=== PATIENT | male | born 1940 | race Caucasian/White ===

== ENCOUNTER 2018-08-10 11:18 | Outpatient (CLI) | payer MEDICARE, SELFPAY ==
[2018-08-10 12:57] LABS: Hemoglobin A1C 6.5 % (4.5-6.2)
== END 2018-08-10 11:38 ==
PROVIDERS: PCP Family Medicine; Visit Provider Family Medicine
DX: R73.02 Impaired glucose tolerance (oral) (principal)
CPT/HCPCS: 36415; 83036

== ENCOUNTER 2018-08-20 00:23 | Outpatient (CLI) | payer MEDICARE, SELFPAY ==
--- NOTE | 2018-08-20 08:53 | DI.CT_ITS ---
SYMPTOMS/DIAGNOSIS: COLON CA, C18.2, EVALUATE FOR RECURRENCE OF METS CHEST, ABDOMEN AND PELVIS CT: CT examination of the chest, abdomen and pelvis was performed with a bolus infusion of 100 cc of Omnipaque 350 and ingestion of dilute barium. Note is made of a partially calcified 8 mm right upper lobe intrapulmonary nodule. This is unchanged in comparison with the previous CT examinations and is consistent with calcified granuloma. Lungs are otherwise clear except for minimal dependent atelectasis or scarring. Tracheobronchial tree appears intact. No evidence of pulmonary embolic disease or other major vascular abnormality. No hilar, mediastinal, axillary or supraclavicular adenopathy. No pleural-based mass. No pleural effusion. The liver is normal in appearance with no evidence of metastatic disease. Spleen appears normal, as does the pancreas. Gallbladder and bile ducts are CT normal. Adrenals appear normal bilaterally. Small bilateral presumed renal cysts are noted. No hydronephrosis or urinary tract calcification. Abdominal aortic aneurysm is noted, measuring about 3.5 cm in diameter. Right and left common iliac arteries each measure about 17 mm in diameter. No abdominal wall hernia is seen apart from a small fat-containing umbilical hernia. Previous right colon resection and anastomosis noted. No evidence of bowel obstruction. There is a new enlarged lymph node measuring about 17 mm in diameter at the level of the right renal vein located behind the vena cava. A couple of smaller nodes also appear to be present at this site. A 10 mm new retroaortic node is noted just above the bifurcation. No additional new adenopathy seen. No pelvic mass identified. Urinary bladder and prostate are unremarkable. No evidence of bony metastatic disease by CT criteria. CONCLUSION: 1. New indeterminate lymph nodes are noted in retrocaval and retroaortic locations, measuring 17 mm and 10 mm in diameter respectively, since previous CT of 11/03/2017. These are indeterminate for metastatic disease and appropriate follow-up imaging is recommended. 2. No other evidence of new remote metastatic disease. 3. Abdominal aortic aneurysm, 3.5 cm maximal diameter.
[2018-08-20] MEDS: Omnipaque 350 MG/ML 100 ML BTL IJ (11:47)
== END 2018-08-20 00:43 ==
PROVIDERS: PCP Family Medicine; Visit Provider Nurse Practitioner Adult Health
DX: C18.2 Malignant neoplasm of ascending colon (principal); R59.0 Localized enlarged lymph nodes; I71.4 Abdominal aortic aneurysm, without rupture
CPT/HCPCS: 74177; 71260; J3490

== ENCOUNTER 2018-08-20 01:17 | Outpatient (RCR) | payer MEDICARE, SELFPAY ==
[2018-08-20] MEDS: Heparin 500 UNITS/5 ML SYRINGE IV (08:40)
[2018-08-20] MEDS: Normal Saline Flush 10 ML SYR IVP (08:40)
[2018-08-20 08:53] LABS: Abs Immature Grans 0.01 k/cumm (0.0-0.09); Absolute Basophil Count 0.03 k/cumm (0.0-0.2); Absolute Eosinophil Count 0.11 k/cumm (0.0-0.7); Absolute Lymphocyte Count 1.92 k/cumm (1.2-3.4); Absolute Monocyte Count 0.67 k/cumm (0.11-0.7); Basophils % 0.4; Eosinophils % 1.5; HCT 39.1 % (40.0-50.0); Immature Grans % 0.1; Lymphocytes % 26.5; Mean Corp. HGB Concentration 33.2 g/dL (32.0-36.0); Mean Corpuscular Hemoglobin 30.2 pg (27.0-33.0); Mean Corpuscular Volume 90.9 fL (80-95); Mean Platelet Volume 9.5 fL (8.0-11.0); Monocytes % 9.3; Neutrophils % 62.2; Platelet Count 172 x1000/uL (130-400); RBC Distribution Width 14.1 % (11.8-14.1); White Blood Cell Count 7.24 k/cumm (4.4-10.8)
[2018-08-20 09:08] LABS: ALT 22 U/L (12-78); AST 65 U/L (15-37); Albumin 3.6 g/dL (3.4-5.0); Alkaline Phosphatase 58 U/L (46-116); Anion Gap 9.3 mmol/L (3-11); BUN 15 mg/dL (7-18); Bilirubin, Total 0.9 mg/dL (0.2-1.0); CO2 28.7 mmol/L (21.0-32.0); CREATININE 0.96 mg/dL (0.70-1.30); Calcium 8.5 mg/dL (8.5-10.1); Chloride 102 mmol/L (98-107); Glucose 116 mg/dL (70-100); Potassium 4.1 mmol/L (3.5-5.1); Sodium 140 mmol/L (136-145); Total Protein 7.5 g/dL (6.4-8.2)
[2018-08-23 10:10] LABS: CEA 0.6 ng/ml
== END 2018-08-25 23:59 | disposition home or self-care (01) ==
LOC: INF 01:17
PROVIDERS: PCP Family Medicine; Visit Provider Internal Medicine Hematology & Oncology
DX: Z85.038 Personal history of other malignant neoplasm of large intestine (principal); Z45.2 Encounter for adjustment and management of vascular access device
CPT/HCPCS: 36591; 74177; 80053; 71260; 82378; 85025; J3490

== ENCOUNTER 2018-09-14 00:37 | Emergency (ER) | payer MEDICARE, SELFPAY ==
[2018-09-14] VITALS (21 sets, daily range): BP systolic 146–165; BP diastolic 61–96; PULSE 57–91; RESP 14–24; TEMP 37.1; O2SAT 93–96
--- NOTE | 2018-09-14 01:06 | W.ED.GENAD ---
Discharge Plan Disposition Patient Disposition: [facility] Condition: Stable Discharge Details Chief Complaint: GenMedical Clinical Impression: Subarachnoid hemorrhage Primary Care Provider: Timothy Rodriguez ED Provider: Quique Busch Home Meds and New Rx's Prescriptions: No Action ranitidine HCl 150 mg capsule 150 mg PO BID Qty: 180 RF: 3 apixaban [Eliquis] 2.5 mg tablet 2.5 mg PO BID Qty: 180 RF: 3 meclizine 25 MG tablet 25 mg PO TID PRNQty: 90 RF: 1 cholecalciferol (vitamin D3) 1,000 UNITS tablet 1 tab PO DAILY Qty: 90 RF: 0 losartan 25 MG tablet 25 mg PO DAILY Qty: 90 RF: 3 simvastatin 20 MG tablet 20 mg PO HS Qty: 90 RF: 3 acetaminophen 500 MG tablet 500 mg PO BID RF: 0 alum-mag hydroxide-simeth [Antacid Regular Strength] 355 ML suspension 2 tsp PO PRN RF: 0 testosterone [AndroGel] 1.25 GM gel in packet 1.25 gm Transdermal DAILY Qty: 90 RF: 3 sertraline 50 MG tablet 50 mg PO DAILY Qty: 90 RF: 3 loratadine 10 mg Capsule 1 dose PO DAILY RF: 0 Medical Decision Making 78-year-old male with a history of colon cancer, status post hemicolectomy and chemotherapy. He has history of pulmonary embolism, paroxysmal atrial ablation. Also has a history of subdural hematoma with a intracranial bleed while on warfarin. He is currently anticoagulated with Eliquis. Presents with family and patient stating that on Thursday he developed transient left arm numbness and weakness, recurred yesterday, and recurred again this evening and associated with left leg weakness. This evening at home he also noted a temperature of 104.Both the weaknes and fever improved by the time of arrival. He arrives with a temperature of 37.1, blood pressure 156/90, 94% sat on room air. The presentation is concerning for intracranial hemorrhage/occult bleed. His report of fever to 104 at home raises the question of an occult bacteremia. Broad differential diagnosis considered and patient referred for blood culture, lactic acid, screening laboratories with troponin, type and screen, CT scan of the head, portable chest x-ray. Patient does have subarachnoid hemorrhage present in the right parietal sulci with surrounding edema. There is no midline shift. CXR unremarkable. Images uploaded to [facility] [place] and case discussed with Neurosurgery Dr Thurston, and ED Dr Love, and patient accepted in transfer. Will hold reversal of anticoagulation at this time. Medical Records Medical records reviewed: Yes I reviewed the patient's medical records. Lab Data Lab results reviewed: Yes I reviewed the patient's lab results. 09/14/18 01:38 Blood Blood Culture - Pending 09/14/18 01:10 Blood Blood Culture - Pending Laboratory Tests Range/Units 09/14/18 09/14/18 09/14/18 01:10 01:10 01:10 WBC (4.4-10.8) k/cumm 7.30 RBC (4.50-6.00) m/cumm 4.10 L Hgb (13.5-17.5) g/dL 12.5 L Hct (40.0-50.0) % 37.8 L MCV (80-95) fL 92.2 MCH (27.0-33.0) pg 30.5 MCHC (32.0-36.0) g/dL 33.1 RDW (11.8-14.1) % 13.9 Plt Count (130-400) x1000/uL 153 MPV (8.0-11.0) fL 9.7 Immature Gran % 0.1 Neutrophils % 65.8 Lymphocytes % 19.7 Monocytes % 11.0 Eosinophils % 3.0 Basophils % 0.4 Absolute Neutrophils (1.2-6.7) k/cumm 4.80 Absolute Lymphocytes (1.2-3.4) k/cumm 1.44 Absolute Monocytes (0.11-0.7) k/cumm 0.80 H Absolute Eosinophils (0.0-0.7) k/cumm 0.22 Absolute Basophils (0.0-0.2) k/cumm 0.03 Sodium (136-145) mmol/L 140 Potassium (3.5-5.1) mmol/L 3.9 Chloride (98-107) mmol/L 104 Carbon Dioxide (21.0-32.0) mmol/L 28.1 Anion Gap (3-11) mmol/L 7.9 BUN (7-18) mg/dL 18 Creatinine (0.70-1.30) mg/dL 1.03 Estimated GFR/1.73 m2 (mL/min/1.73m2) >= 60.00 Glucose (70-100) mg/dL 116 H Lactate (0.6-1.4) mmol/L 0.9 Calcium (8.5-10.1) mg/dL 8.6 Magnesium (1.8-2.4) mg/dL 1.7 L Total Bilirubin (0.2-1.0) mg/dL 0.4 AST (15-37) U/L 71 H ALT (12-78) U/L 22 Alkaline Phosphatase (46-116) U/L 56 Troponin I (0.00-0.06) ng/mL < 0.02 Total Protein (6.4-8.2) g/dL 6.9 Albumin (3.4-5.0) g/dL 3.4 ECG Data Attestation: I personally reviewed and interpreted this ECG (s) as follows: Prior ECG tracings: available for review Interpretation: Underlying sinus bradycardia with first-degree AV block, frequent PACs, bigeminy present, no ST segment HPI General Mode of arrival: ambulatory. Date/Time Provider Initiated Documentation: 09/14/18 00:50. Limitations to Documentation: no limitations. Information obtained by: patient. History of Present Illness 78 year old M presents to the emergency department with the chief complaint of Left arm and leg weakness intermittently over days, described as moderate, and is localized to the left, upper extremity and lower extremity. Patient started experiencing this day(s) and it has been intermittent. No relieving factors improve symptom(s), No exacerbating factors reported . Patient notes fever/chills. HPI Narrative: 78-year-old male presents from home with his and family. They report intermittent episodes of left arm weakness and numbness over 2 days time, associated with left leg weakness transiently and this evening, associated with a fever at home this evening. Patient states that after snowblowing on Thursday he developed approximately 2 hours of left arm weakness in which the arm felt . This improved and then recurred the next day. He denies a fall, headache, injury. This evening he came back to bed and told his he did not feel well and that he had noted recurrent left arm weakness and numbness with associated left leg weakness. At home when he was noted to have a fever of 104 with no intervention. Has not had cough, change to urine, vomiting, abdominal pain. Fever has now improved. He is an 78-year-old male who is anticoagulated. He has a history of paroxysmal atrial fibrillation, pulmonary embolism, subdural hematoma following bleed while on warfarin therapy that required craniectomy. Related Data Home Medications Medication Instructions Recorded Confirmed meclizine 25 mg PO TID PRN #90 tab-cap 03/10/17 09/14/18 cholecalciferol (vitamin D3) 1 tab PO DAILY #90 tab-cap 08/28/17 09/14/18 losartan 25 mg PO DAILY #90 tab 01/07/18 09/14/18 simvastatin 20 mg PO HS #90 tab-cap 01/18/18 09/14/18 acetaminophen 500 mg PO BID tab-cap 02/09/18 09/14/18 alum-mag hydroxide-simeth [Antacid 2 tsp PO PRN ml 02/09/18 09/14/18 Liquid] sertraline 50 mg PO DAILY #90 tab-cap 02/09/18 09/14/18 testosterone [Androgel] 1.25 gm TRANSDERMAL DAILY #90 gel 02/09/18 09/14/18 apixaban 2.5 mg tablet 2.5 mg PO BID #180 tab-cap 08/10/18 09/14/18 ranitidine 150 mg capsule 150 mg PO BID #180 cap 08/10/18 09/14/18 loratadine 1 dose PO DAILY 09/14/18 09/14/18 Previous Rx's Medication Instructions Recorded cholecalciferol (vitamin D3) 1 tab PO DAILY #90 tab-cap 08/28/17 losartan 25 mg PO DAILY #90 tab 01/07/18 simvastatin 20 mg PO HS #90 tab-cap 01/18/18 sertraline 50 mg PO DAILY #90 tab-cap 02/09/18 testosterone [Androgel] 1.25 gm TRANSDERMAL DAILY #90 gel 02/09/18 apixaban 2.5 mg tablet 2.5 mg PO BID #180 tab-cap 08/10/18 ranitidine 150 mg capsule 150 mg PO BID #180 cap 08/10/18 Allergies Allergy/AdvReac Type Severity Reaction Status Date / Time pantoprazole sodium Allergy Severe THROAT Unverified 09/14/18 00:40 [From Protonix] SWELLING/CHILLS General Stated Complaint: GenMedical ANY: 3 Review of Systems Review of Systems 8 systems reviewed and otherwise PFSH Family History Mother Personal history of malignant neoplasm Father Personal history of malignant neoplasm Heart disease Sister No problems noted. Brother No problems noted. Medical History BPH (benign prostatic hyperplasia) COPD (chronic obstructive pulmonary disease) GERD (gastroesophageal reflux disease) History of colon cancer Intention tremor PE (pulmonary thromboembolism) Paroxysmal atrial fibrillation Social History Smoking/Tobacco Use Status: Former Tobacco Use alcohol intake: current alcohol intake frequency: a few times a week substance use type: does not use seatbelt use: always Surgical History Colonoscopy - MAC (11/07/16) Colonoscopy - MAC (11/27/17) EGD - MAC (11/07/16) Fracture, Closed Treatment Hemicolectomy Kidney Stone Extraction Transurethral prostatectomy Exam Narrative Exam Narrative: GEN: awake, alert, oriented 3. Pleasant, well groomed, interactive. HEAD: Normocephalic, atraumatic ENT: Mucous membranes moist, oropharynx unremarkable, External ear exam unremarkable EYES: Irregular R pupil, EOMI NECK: Full ROM, no ELIZABETH, no menigismus CHEST/RESP: Nontender, clear to auscultation bilateral, no wheeze/rhonchi/rales CARDIOVASCULAR: RRR, no murmur, rub noel. 2+ Rad pulse bilateral ABDOMEN: Soft, nontender, no mass. +Bowel sounds EXT: Full ROM, no edema, no rash Neuro: Grossly normal neurologic exam, conversant, interactive. He is somewhat slow to respond at times and family states this is normal. Motor exam is 5 out of 5 in the upper extremity, 5 out of 5 in the right lower extremity, patient is able to lift the left lower extremity against gravity but not against resistance. Cranial nerves II through XII grossly intact. Left upper extremity finger to nose is somewhat wavering. Sensation intact throughout Psych: Speech fluent, thoughts congruent, affect normal Course Vital Signs Temperature 37.1 C 09/14/18 00:41 Pulse 57 L 09/14/18 00:41 Respiratory Rate 15 09/14/18 00:41 Blood Pressure 156/94 H 11/20/18 00:41 Pulse Oximetry 94 L 09/14/18 00:41 Temperature 37.1 C 09/14/18 00:41 Temperature Source Temporal Artery Scan 09/14/18 00:41 Pulse 57 L 09/14/18 00:41 Respiratory Rate 15 09/14/18 00:41 Respiratory Effort 09/14/18 00:41 Blood Pressure 156/94 H 09/14/18 00:41 Blood Pressure Position Sitting 09/14/18 00:41 Pulse Oximetry 94 L 09/14/18 00:41 Oxygen Delivery Method Room Air 09/14/18 00:41 Oxygen Flow Rate 0 09/14/18 00:41 Pain Level 0 09/14/18 00:41
[2018-09-14 01:30] LABS: Lactate-non-spesis 0.9 mmol/L (0.6-1.4)
--- NOTE | 2018-09-14 01:35 | DI.CT_ITS ---
SYMPTOM/DIAGNOSIS: INTERMITTENT LT ARM/LEG WEAKNESS/NUMB CRANIAL CT: Note is made of a subarachnoid hemorrhage in a right parietal sulci with minimal adjacent edema. There is moderate to severe chronic small vessel disease. The ventricles are unremarkable. There is no evidence of hydrocephalus. There is no evidence of a territorial infarct. The midline is preserved. Note is made of bilateral parietal craniotomies. Note is also made of minimal mucosal thickening in the maxillary sinuses. SUMMARY: A 16.5 x 6.2 cm right parietal subarachnoid hemorrhage is demonstrated. There is evidence of atrophy and small vessel disease. Please see the above discussion.
[2018-09-14 01:36] LABS: Abs Immature Grans 0.01 k/cumm (0.0-0.09); Absolute Basophil Count 0.03 k/cumm (0.0-0.2); Absolute Eosinophil Count 0.22 k/cumm (0.0-0.7); Absolute Lymphocyte Count 1.44 k/cumm (1.2-3.4); Basophils % 0.4; HCT 37.8 % (40.0-50.0); HGB 12.5 g/dL (13.5-17.5); Immature Grans % 0.1; Lymphocytes % 19.7; Mean Corp. HGB Concentration 33.1 g/dL (32.0-36.0); Mean Corpuscular Hemoglobin 30.5 pg (27.0-33.0); Mean Corpuscular Volume 92.2 fL (80-95); Mean Platelet Volume 9.7 fL (8.0-11.0); Neutrophils % 65.8; Platelet Count 153 x1000/uL (130-400); RBC Distribution Width 13.9 % (11.8-14.1)
--- NOTE | 2018-09-14 01:36 | DI.VRAD_ITS ---
EXAM: CT Head Without Intravenous Contrast EXAM DATE/TIME: 09/14/2018 1:06 AM CLINICAL HISTORY: 78 years old, male; Signs and symptoms; Weakness, extremity; Left; Prior surgery; Surgery date: 6+ months; Surgery type: Parietal craniectomies; Patient HX: L intermittent arm and leg weakness TECHNIQUE: Axial computed tomography images of the head/brain without intravenous contrast. All CT scans at this facility use at least one of these dose optimization techniques: automated exposure control; mA and/or kV adjustment per patient size (includes targeted exams where dose is matched to clinical indication); or iterative reconstruction. Coronal and sagittal reformatted images were created and reviewed. COMPARISON: CT HEAD WITHOUT CONTRAST 08/19/2017 9:28 AM FINDINGS: Subarachnoid hemorrhage in the right parietal sulci with minimal adjacent edema. There is moderate to severe chronic microvascular ischemic changes. No hydrocephalus or acute territorial infarction. No midline shift observed. Bilateral parietal craniotomies. Minimal mucosal thickening in the maxillary sinuses IMPRESSION: Subarachnoid hemorrhage in the right parietal sulci with minimal edema Dictated and Authenticated by: Zafar Batista MD. Ordering:TABATHA POWELL MD
[2018-09-14 01:46] LABS: ALT 22 U/L (12-78); AST 71 U/L (15-37); Albumin 3.4 g/dL (3.4-5.0); Alkaline Phosphatase 56 U/L (46-116); Anion Gap 7.9 mmol/L (3-11); BUN 18 mg/dL (7-18); Bilirubin, Total 0.4 mg/dL (0.2-1.0); CO2 28.1 mmol/L (21.0-32.0); CREATININE 1.03 mg/dL (0.70-1.30); Calcium 8.6 mg/dL (8.5-10.1); Chloride 104 mmol/L (98-107); Glucose 116 mg/dL (70-100); Magnesium 1.7 mg/dL (1.8-2.4); Potassium 3.9 mmol/L (3.5-5.1); Sodium 140 mmol/L (136-145); Total Protein 6.9 g/dL (6.4-8.2)
[2018-09-14] MEDS: Normal Saline 1,000 ML 125 ML IV (01:52)
[2018-09-14 01:54] LABS: Troponin I < 0.02 ng/mL (0.00-0.06)
--- NOTE | 2018-09-14 01:55 | DI.RAD_ITS ---
SYMPTOM/DIAGNOSIS: STROKE PORTABLE CHEST: Chronic pulmonary changes are noted. There is a questionable small left lower lobe granuloma, perhaps measuring 6 mm in maximal diameter. There is no pleural effusion or pneumothorax. There is moderate cardiac enlargement. There is tortuosity of the thoracic aorta and no plain image evidence of an aneurysm is seen. The bony structures are unremarkable. SUMMARY: No evidence of acute cardiopulmonary disease.
--- NOTE | 2018-09-14 01:59 | DI.VRAD_ITS ---
EXAM: XR Chest, 1 View EXAM DATE/TIME: 09/14/2018 1:46 AM CLINICAL HISTORY: 78 years old, male; Condition or disease; Other: Stroke; Prior surgery; Surgery date: 6+ months; Surgery type: Port TECHNIQUE: XR of the chest, 1 view. COMPARISON: CR CHEST 2 VIEWS PA,LAT 08/19/2017 9:25 AM FINDINGS: Right Port-A-Cath in the superior vena cava Lungs: Chronic interstitial prominence. Question calcified granuloma in the left lower lobe measuring 6 mm No consolidation. Pleural space: No pleural effusion. No pneumothorax. Heart/Mediastinum: Moderate cardiomegaly. Tortuous aorta. Bones/joints: Unremarkable. IMPRESSION: No acute findings. Dictated and Authenticated by: Zafar Batista MD. Ordering:TABATHA POWELL MD
[2018-09-14 02:03] LABS: Prothrombin Time 9.9 sec (9.3-10.8)
[2018-09-14] MEDS: MAGNESIUM SULFATE 1 GM/100 ML BAG IVPB (02:08)
[2018-09-14 03:04] LABS: Bilirubin Negative (Negative); Blood Trace-intact (Negative); Clarity Clear; Glucose Negative (Negative); Ketones Negative (Negative); Leukocyte Esterase Negative (Negative); Nitrite Negative (Negative); Urobilinogen 0.2 EU/dL (Up TO 0.2)
[2018-09-14 03:15] LABS: Bacteria Negative HPF (Negative); C & S Indicated? No; Casts Negative LPF (Negative); Crystals Few Amorphous HPF (Negative); Epithelial Cells Rare HPF (Negative); Mucus Negative (Negative); WBC 0-2 HPF (0-5)
--- NOTE | 2018-09-19 12:49 | NUR.NOTE ---
Faxed blood culture results to [facility] [place] [facility], .Nursing Note:
== END 2018-09-14 02:59 | disposition short-term general hospital (02) ==
PROVIDERS: Emergency Provider Emergency Medicine; PCP Family Medicine
DX: I60.9 Nontraumatic subarachnoid hemorrhage, unspecified (principal); R50.9 Fever, unspecified; I48.0 Paroxysmal atrial fibrillation; Z86.711 Personal history of pulmonary embolism; Z79.01 Long term (current) use of anticoagulants; J44.9 Chronic obstructive pulmonary disease, unspecified; Z87.891 Personal history of nicotine dependence
CPT/HCPCS: 36591; 80053; 86850; 86900; 86901; 87040; 93005; 96365; 99285; 70450; 71045; 81003; 81015; 83605; 83735; 84484; 85025; 85610; 93010; J3475

== ENCOUNTER 2018-10-15 10:38 | Emergency (ER) | payer MEDICARE, SELFPAY ==
[2018-10-15] VITALS (7 sets, daily range): BP systolic 130–154; BP diastolic 61–83; PULSE 43–77; RESP 16–20; TEMP 36.4; O2SAT 94–97
--- NOTE | 2018-10-15 10:42 | DI.RAD_ITS ---
SYMPTOM/DIAGNOSIS: WEAKNESS AP UPRIGHT CHEST: The lungs are clear. There is no pleural effusion. The heart lis not enlarged. The hilar structures, mediastinum and tracheal air column as demonstrated appear intact. A right subclavian catheter appears to end in the mid portion of the superior vena cava. SUMMARY: No evidence of acute cardiopulmonary disease.
[2018-10-15 10:59] LABS: Abs Immature Grans 0.03 k/cumm (0.0-0.09); Absolute Basophil Count 0.03 k/cumm (0.0-0.2); Absolute Eosinophil Count 0.22 k/cumm (0.0-0.7); Absolute Lymphocyte Count 1.82 k/cumm (1.2-3.4); Absolute Monocyte Count 0.73 k/cumm (0.11-0.7); Absolute Neutrophil Count 7.68 k/cumm (1.2-6.7); Basophils % 0.3; Eosinophils % 2.1; HCT 40.3 % (40.0-50.0); HGB 13.3 g/dL (13.5-17.5); Immature Grans % 0.3; Lymphocytes % 17.3; Mean Platelet Volume 9.4 fL (8.0-11.0); Monocytes % 6.9; Neutrophils % 73.1; Platelet Count 232 x1000/uL (130-400); RBC 4.43 m/cumm (4.50-6.00); RBC Distribution Width 12.5 % (11.8-14.1); White Blood Cell Count 10.51 k/cumm (4.4-10.8)
--- NOTE | 2018-10-15 11:01 | W.ED.GENAD ---
Discharge Plan Disposition Patient Disposition: HOME Condition: Stable Discharge Details Chief Complaint: CVA/TIA Clinical Impression: Paresthesia, Headache Primary Care Provider: Timothy Rodriguez ED Provider: Mihaela Bravo Home Meds and New Rx's Prescriptions: New levetiracetam [Keppra] 500 mg tablet 1,500 mg PO BID 30 Days Qty: 180 RF: 0 benzonatate [Tessalon Perles] 100 mg capsule 100 mg PO TID PRN (Reason: cough) Qty: 10 RF: 0 Continued Centrum Ultra Men's 8 mg iron- 200 mcg-600 mcg tablet 1 tab PO DAILY RF: 0 ranitidine HCl 150 mg capsule 150 mg PO BID Qty: 180 RF: 3 simvastatin 20 MG tablet 20 mg PO HS Qty: 90 RF: 3 acetaminophen 500 MG tablet 500 mg PO BID RF: 0 sertraline 50 MG tablet 50 mg PO DAILY Qty: 90 RF: 3 loratadine 10 mg Capsule 1 dose PO DAILY RF: 0 Discontinued levetiracetam 500 mg tablet 500 mg PO BID RF: 0 Discharge Instructions Instructions: Paresthesia (ED), General Headache (ED) Additional Instructions: Increase your Keppra from 1000 mg twice daily to 1500 mg twice daily. You were given an additional prescription for this. Take the Tessalon Perles as needed and directed for your cough. You will receive a call from the primary care doctor's office for a follow-up appointment for next week. Return immediately to the emergency department any worsening or new concerning symptoms. Discharge Data Discharge Date/Time-TO BE ENTERED AT DEPARTURE: 10/15/18 15:36 Discharge Physician: Mihaela Bravo Medical Decision Making 78yo M w/ a h/o SAH and craniotomy 2015, afib not on anticoagulation, colon cancer s/p hemicolectomy, hypertension, hyperlipidemia who presents for bilateral upper and lower extremity tingling and frontal headache that started 90 minutes ago. Patient complained of frontal headache on my exam. No focal deficits. Patient sent down to CT for stat CT head 1135 -- CT head negative. Patient states his headache is now resolved. Patient also denies any tingling in his extremities. Moving all extremities spontaneously and no focal deficits. Concern for TIA. MRI called to see if we can obtain an MRI brain today. Heart rate also noted to be occasionally in the 30s. Pt remained asymptomatic during these episodes. Daughter states his home health/PCP office stopped his losartan last week for this which would not be the cause. Will place pacer pads. Labs reviewed and unremarkable. Urinalysis negative. 1245 -- d/w hospitalist - notified of pt and plan for admission for TIA r/o CVA pending MRI brain. 1415 -- MRI/MRA brain negative for acute findings. 1425 -- Discussed with hospitalist - he had reviewed prior imaging at [facility] within the past month including echo and CT angiography and these were unrevealing. He also discussed with patient's neurologist Dr. Griffiths who had stated that patient had had similar sensory deficits during his admission 1 month ago and it was thought that residual blood from his previous SAH may be causing his sensory symptoms as he had similar symptoms while at [facility] w/o new neurologic injury found. Please see Dr. Frances's note for further discussion of this. Due to his recent workup and resolution of symptoms with negative MRI/MRA brain today, Dr. Frances does not recommend admission at this time. Per Dr. Frances, Dr. Griffiths recommends increasing his keppra to 1500mg bid. Pt has also had chronic cough for a couple weeks. He has no fever, normal wbc and normal cxr, so I do not see a need for antibiotics but will give script for Doug Wadsworth. This plan was discussed at length with patient and family and they are agreeable and feel good with taking patient home. 1505 -- d/w pcp Dr. Rodriguez -notified him of plan today and for recommend follow-up within the next week. He will plan for patient be evaluated by the end of next week. Family and pt instructed to return here immediately with any concerns. Dr. Rodriguez was given daughter Bernie's home number to call instead of per request due to being hard of hearing. Medical Records Medical records reviewed: Yes I reviewed the patient's medical records. Imaging Data Radiologic Study: Radiologist's impression: AP UPRIGHT CHEST: The lungs are clear. There is no pleural effusion. The heart lis not enlarged. The hilar structures, mediastinum and tracheal air column as demonstrated appear intact. A right subclavian catheter appears to end in the mid portion of the superior vena cava. SUMMARY: No evidence of acute cardiopulmonary disease. Radiologic Study #2: Attestation: I personally reviewed and interpreted this imaging study as follows: Radiologist's impression: CRANIAL CT: There is no evidence of an intra or extra axial hemorrhage. There is generalized cerebral atrophy, evidence of small vessel disease and old bilateral basal ganglia, lacunar infarcts identified. Note is made of a bilateral parietal craniotomies. There is nothing to suggest a superimposed acute skull fracture. There is moderate mucoperiosteal thickening noted in the maxillary antra with increased prominence when compared with the prior examination of 09/14/2018. SUMMARY: When compared with the prior study of 09/14/2018 there is again noted no evidence of an acute intracerebral abnormality. There is evidence of atrophy, small vessel disease and old lacunes involving the basal ganglia are demonstrated. Note is also made of bilateral craniotomy defects. Chronic maxillary and ethmoid sinus changes are identified. There is no evidence of an air fluid level or acute change. Radiologic Study #3: Radiologist's impression: MRI OF THE BRAIN: Comparison is made with the head CT dated September,. T2 sagittal, T1, T2, FLAIR, diffusion and gradient-echo axial sequences were performed. The exam is quite limited by patient motion. There are bilateral craniotomy defects. There are severe white matter changes, which appear stable when compared with previous exam from 2017. No acute infarct, hemorrhage or mass is seen. The ventricles are unchanged in size. IMPRESSION: Limited exam due to motion. No acute abnormality. MRA OF THE [place]: A 3D [id number] study was performed. The exam is quite limited by patient motion. The [place] vasculature appears patent. There is no evidence of occlusion or significant stenosis. IMPRESSION: Limited exam due to motion. No acute abnormality is identified. Lab Data Lab results reviewed: Yes I reviewed the patient's lab results. Laboratory Tests Range/Units 10/15/18 10/15/18 10/15/18 10:45 10:45 10:45 WBC (4.4-10.8) k/cumm 10.51 RBC (4.50-6.00) m/cumm 4.43 L Hgb (13.5-17.5) g/dL 13.3 L Hct (40.0-50.0) % 40.3 MCV (80-95) fL 91.0 MCH (27.0-33.0) pg 30.0 MCHC (32.0-36.0) g/dL 33.0 RDW (11.8-14.1) % 12.5 Plt Count (130-400) x1000/uL 232 MPV (8.0-11.0) fL 9.4 Immature Gran % 0.3 Neutrophils % 73.1 Lymphocytes % 17.3 Monocytes % 6.9 Eosinophils % 2.1 Basophils % 0.3 Absolute Neutrophils (1.2-6.7) k/cumm 7.68 H Absolute Lymphocytes (1.2-3.4) k/cumm 1.82 Absolute Monocytes (0.11-0.7) k/cumm 0.73 H Absolute Eosinophils (0.0-0.7) k/cumm 0.22 Absolute Basophils (0.0-0.2) k/cumm 0.03 PT (9.3-11.0) sec 9.3 INR (1.0-3.5) 0.9 L APTT (21.0-31.4) sec 21.4 Sodium (136-145) mmol/L 137 Potassium (3.5-5.1) mmol/L 4.0 Chloride (98-107) mmol/L 98 Carbon Dioxide (21.0-32.0) mmol/L 30.5 Anion Gap (3-11) mmol/L 8.5 BUN (7-18) mg/dL 16 Creatinine (0.70-1.30) mg/dL 1.02 Estimated GFR/1.73 m2 (mL/min/1.73m2) >= 60.00 Glucose (70-100) mg/dL 110 H Calcium (8.5-10.1) mg/dL 9.2 Magnesium (1.8-2.4) mg/dL 1.9 Total Bilirubin (0.2-1.0) mg/dL 0.4 AST (15-37) U/L 89 H ALT (12-78) U/L 26 Alkaline Phosphatase (46-116) U/L 82 Troponin I (0.00-0.06) ng/mL < 0.02 Total Protein (6.4-8.2) g/dL 8.1 Albumin (3.4-5.0) g/dL 3.7 Urine Color (Yellow) Urine Clarity Urine pH (5-8) Ur Specific [place] (1.005-1.025) Urine Protein (Negative) mg/dL Urine Ketones (Negative) mg/dL Urine Blood (Negative) Urine Nitrite (Negative) Urine Bilirubin (Negative) Urine Urobilinogen (Up TO 0.2) EU/dL Ur Leukocyte Esterase (Negative) Urine RBC (0-2) Urine WBC (0-5) HPF Ur Epithelial Cells (Negative) HPF Urine Crystals (Negative) HPF Urine Bacteria (Negative) HPF Urine Casts (Negative) LPF Urine Mucus (Negative) Ur Culture Indicated? Urine Glucose (Negative) mg/dL Range/Units 10/15/18 11:57 WBC (4.4-10.8) k/cumm RBC (4.50-6.00) m/cumm Hgb (13.5-17.5) g/dL Hct (40.0-50.0) % MCV (80-95) fL MCH (27.0-33.0) pg MCHC (32.0-36.0) g/dL RDW (11.8-14.1) % Plt Count (130-400) x1000/uL MPV (8.0-11.0) fL Immature Gran % Neutrophils % Lymphocytes % Monocytes % Eosinophils % Basophils % Absolute Neutrophils (1.2-6.7) k/cumm Absolute Lymphocytes (1.2-3.4) k/cumm Absolute Monocytes (0.11-0.7) k/cumm Absolute Eosinophils (0.0-0.7) k/cumm Absolute Basophils (0.0-0.2) k/cumm PT (9.3-11.0) sec INR (1.0-3.5) APTT (21.0-31.4) sec Sodium (136-145) mmol/L Potassium (3.5-5.1) mmol/L Chloride (98-107) mmol/L Carbon Dioxide (21.0-32.0) mmol/L Anion Gap (3-11) mmol/L BUN (7-18) mg/dL Creatinine (0.70-1.30) mg/dL Estimated GFR/1.73 m2 (mL/min/1.73m2) Glucose (70-100) mg/dL Calcium (8.5-10.1) mg/dL Magnesium (1.8-2.4) mg/dL Total Bilirubin (0.2-1.0) mg/dL AST (15-37) U/L ALT (12-78) U/L Alkaline Phosphatase (46-116) U/L Troponin I (0.00-0.06) ng/mL Total Protein (6.4-8.2) g/dL Albumin (3.4-5.0) g/dL Urine Color (Yellow) Yellow Urine Clarity Clear Urine pH (5-8) 7.0 Ur Specific [place] (1.005-1.025) 1.015 Urine Protein (Negative) mg/dL Negative Urine Ketones (Negative) mg/dL Negative Urine Blood (Negative) Trace-intact H Urine Nitrite (Negative) Negative Urine Bilirubin (Negative) Negative Urine Urobilinogen (Up TO 0.2) EU/dL 0.2 Ur Leukocyte Esterase (Negative) Negative Urine RBC (0-2) 5-10 H Urine WBC (0-5) HPF 0-2 Ur Epithelial Cells (Negative) HPF Rare Urine Crystals (Negative) HPF Negative Urine Bacteria (Negative) HPF Negative Urine Casts (Negative) LPF Negative Urine Mucus (Negative) Negative Ur Culture Indicated? No Urine Glucose (Negative) mg/dL Negative Patient ECG Data Attestation: I personally reviewed and interpreted this ECG (s) as follows: Interpretation: 1048 -- Rate of 70, sinus, occasional PVCs, incomplete right bundle branch block and left anterior fascicular block which is seen in previous. No acute ST elevation or depression. QTc 453. QRS 123. HPI General Mode of arrival: EMS. Date/Time Provider Initiated Documentation: 10/15/18 10:42. Limitations to Documentation: altered mental status. Information obtained by: patient and family. HPI Narrative: Patient is an 78-year-old male with a history of subarachnoid hemorrhage x2, most recently 1 month ago and a history of craniotomy in 2015, atrial fibrillation not on anticoagulation, and colon cancer who presents to the ED with a complaint of extremity tingling and headache since this morning. Patient and family state that patient was sitting in the kitchen when he developed left arm and left leg tingling and a sensation of heaviness in his left arm that started approximately 90 minutes ago. Patient states shortly after he then developed tingling in his right arm and right leg. Approximately 30 minutes after this, patient developed a frontal headache. He denies any blurry vision, nausea, vomiting, dizziness, chest pain, shortness of breath or extremity weakness. Patient has a history of subarachnoid hemorrhage just before 1 month ago in which she was seen initially in this ED and transferred to [facility] and then to rehab. Family states patient has been doing well up until symptoms this morning. They state at baseline he occasionally uses a walker for ambulation. They state at baseline he has some level of cognitive impairment/mild dementia, but he seemed more confused this morning with expressive/receptive aphasia. They deny any slurred speech or facial droop. Patient also developed a recent cough at the [facility] rehab before he was discharged this month and has not been sleeping well due to a cough at night. Patient had been taking Eliquis for his Afib prior to his subarachnoid hemorrhage 1 month ago but this was stopped. Related Data Home Medications Medication Instructions Recorded Confirmed simvastatin 20 mg PO HS #90 tab-cap 18 10/15/18 acetaminophen 500 mg PO BID tab-cap 02/09/18 10/15/18 sertraline 50 mg PO DAILY #90 tab-cap 02/09/18 10/15/18 ranitidine 150 mg capsule 150 mg PO BID #180 cap 08/10/18 10/15/18 loratadine 1 dose PO DAILY 09/14/18 10/15/18 multivit,Ca,min-iron 8 mg-folic 1 tab PO DAILY tab 10/12/18 10/15/18 acid 200 mcg-lycopene 600 mcg tablet benzonatate [Tessalon Perles] 100 mg PO TID PRN #10 cap 10/15/18 levetiracetam [Keppra] 1,500 mg PO BID 30 Days #180 tab 10/15/18 Previous Rx's Medication Instructions Recorded simvastatin 20 mg PO HS #90 tab-cap 01/18/18 sertraline 50 mg PO DAILY #90 tab-cap 02/09/18 ranitidine 150 mg capsule 150 mg PO BID #180 cap 08/10/18 benzonatate [Tessalon Perles] 100 mg PO TID PRN #10 cap 10/15/18 levetiracetam [Keppra] 1,500 mg PO BID 30 Days #180 tab 10/15/18 Allergies Allergy/AdvReac Type Severity Reaction Status Date / Time pantoprazole sodium Allergy Severe THROAT Unverified 10/15/18 11:22 [From Protonix] SWELLING/CHILLS General AYN: 3 Review of Systems Review of Systems All systems reviewed & are unremarkable except as noted in HPI and below Constitutional Reports as per HPI, Denies chills, Denies fever(s), Reports headache(s) and Denies weakness Eyes Denies blurry vision ENT Denies dizziness, Reports headache(s), Denies sore throat and Denies throat swelling Cardiovascular Denies chest pain and Denies dyspnea Respiratory Denies dyspnea Gastrointestinal Denies abdominal pain, Denies diarrhea and Denies vomiting Genitourinary Denies hematuria and Denies dysuria Musculoskeletal Denies back pain, Denies numbness and Reports tingling Integumentary/Breasts Denies lesions and Denies rash Neurologic Denies dizziness, Reports headache(s), Denies numbness, Reports tingling and Denies weakness Allergic/Immunologic Denies throat swelling [facility] Medical History BPH (benign prostatic hyperplasia) COPD (chronic obstructive pulmonary disease) GERD (gastroesophageal reflux disease) History of colon cancer Intention tremor PE (pulmonary thromboembolism) Paroxysmal atrial fibrillation Surgical History Colonoscopy - MAC (11/07/16) Colonoscopy - MAC (11/27/17) EGD - MAC (11/07/16) Fracture, Closed Treatment Hemicolectomy Kidney Stone Extraction Transurethral prostatectomy Family History Mother Personal history of malignant neoplasm Father Personal history of malignant neoplasm Heart disease Sister No problems noted. Brother No problems noted. Social History Smoking/Tobacco Use Status: Former Tobacco Use alcohol intake: current alcohol intake frequency: a few times a week substance use type: does not use seatbelt use: always Exam Const General: cooperative and healthy appearing Orientation: alert and awake HENMT Head: normal to inspection Ears: hearing grossly normal bilaterally and external ears normal General nose exam: external nose normal Face and sinus: normal facial exam Mouth: oral mucosae normal Eyes General: appearance normal, both eyes and all related structures Eyelids: eyelids normal Pupils: pupil size on the right (chronic due to previous metal in eye injury) 3 and on the left 2 EOM: EOM intact bilaterally Neck Neck: normal visual inspection Lymphatic: no lymphadenopathy noted Chest Chest: normal inspection of the chest Resp Effort & Inspection: normal respiratory effort and able to speak in complete sentences Auscultation: clear to auscultation bilaterally Cardio Rate: regular rate Rhythm: regular rhythm GI Inspection: normal to inspection Palpation: soft, not firm, no guarding, no hepatosplenomegaly, no masses and nontender Auscultation: normal bowel sounds Skin General skin exam: no rashes or lesions noted Neuro General: alert, awake, oriented (not time, which can e his baseline due to chronic cognitive impairment) Patient Orientation: Person and Place, moves all extremities, no focal motor deficits and other Cognition: normal cognition Speech: speech normal Motor: muscle tone normal throughout, strength 5/5 throughout and no pronator drift Sensory Exam: no sensory deficits noted Extrem General: normal to inspection, full ROM, normal capillary refill and no edema Psych Appearance: grossly normal Mental Status: mental status grossly normal Speech and Movement: speech and movement normal Affect: normal affect Thought Process: normal Course Vital Signs Respiratory Rate 17 10/15/18 10:39 Pulse 43 L 10/15/18 10:41 Pulse 73 10/15/18 10:41 Respiratory Rate 20 10/15/18 10:41 Blood Pressure 154/83 H 10/15/18 10:41 Blood Pressure Mean 102 10/15/18 10:41 Pulse Oximetry 95 10/15/18 10:41
[2018-10-15 11:17] LABS: ALT 26 U/L (12-78); AST 89 U/L (15-37); Albumin 3.7 g/dL (3.4-5.0); Alkaline Phosphatase 82 U/L (46-116); Anion Gap 8.5 mmol/L (3-11); Bilirubin, Total 0.4 mg/dL (0.2-1.0); CO2 30.5 mmol/L (21.0-32.0); CREATININE 1.02 mg/dL (0.70-1.30); Calcium 9.2 mg/dL (8.5-10.1); Chloride 98 mmol/L (98-107); Glucose 110 mg/dL (70-100); Magnesium 1.9 mg/dL (1.8-2.4); Sodium 137 mmol/L (136-145); Total Protein 8.1 g/dL (6.4-8.2)
[2018-10-15 11:18] LABS: Troponin I < 0.02 ng/mL (0.00-0.06)
[2018-10-15 11:25] LABS: INR 0.9 (1.0-3.5); PTT Activated 21.4 sec (21.0-31.4); Prothrombin Time 9.3 sec (9.3-11.0)
[2018-10-15 11:29] LABS: BUN 16 mg/dL (7-18)
[2018-10-15 12:02] LABS: Bilirubin Negative (Negative); Blood Trace-intact (Negative); Clarity Clear; Glucose Negative (Negative); Ketones Negative (Negative); Leukocyte Esterase Negative (Negative); Nitrite Negative (Negative); Specific Gravity 1.015 (1.005-1.025); Urobilinogen 0.2 EU/dL (Up TO 0.2)
[2018-10-15 12:13] LABS: Bacteria Negative HPF (Negative); C & S Indicated? No; Casts Negative LPF (Negative); Crystals Negative HPF (Negative); Epithelial Cells Rare HPF (Negative); Mucus Negative (Negative); WBC 0-2 HPF (0-5)
[2018-10-15] MEDS: LORazepam 2 MG/ML VIAL 1 MG IVP (12:28)
--- NOTE | 2018-10-15 12:31 | NUR.NOTE ---
patient medicated per MD order Nursing Note:
--- NOTE | 2018-10-15 13:29 | NUR.NOTE ---
patient to MRI 1245pmNursing Note:
--- NOTE | 2018-10-15 13:45 | DI.MRI_ITS ---
SYMPTOMS/DIAGNOSIS: POSSIBLE TIA, BILATERAL TINGLING, HEADACHE, H/O SUBACUTE HEMORRHAGE, ANEURYSM, ? CVA MRI OF THE BRAIN: Comparison is made with the head CT dated September,. T2 sagittal, T1, T2, FLAIR, diffusion and gradient-echo axial sequences were performed. The exam is quite limited by patient motion. There are bilateral craniotomy defects. There are severe white matter changes, which appear stable when compared with previous exam from 2017. No acute infarct, hemorrhage or mass is seen. The ventricles are unchanged in size. IMPRESSION: Limited exam due to motion. No acute abnormality. MRA OF [place]: A 3D [id number] study was performed. The exam is quite limited by patient motion. The [place] vasculature appears patent. There is no evidence of occlusion or significant stenosis. IMPRESSION: Limited exam due to motion. No acute abnormality is identified.
--- NOTE | 2018-10-15 13:54 | NUR.NOTE ---
patient returned from MRI, neuro signs wnl Nursing Note:
--- NOTE | 2018-10-15 14:07 | W.MEDCONSULT ---
Date of service: 10/15/18 Time of Service: 14:08 Assessment and Plan (1) Paresthesias: Current visit: Yes Status: Acute Paresthesias left hand and arm and right hand, the latter somewhat different compared to his presenting symptoms with his subarachnoid hemorrhage last month. I spoke with Dr. Griffiths, attending neurologist who saw him during his [facility] hospitalization. Suspicion is that he has amyloid angiopathy as the cause of the subarachnoid hemorrhage and there may be residual blood causing irritation to the adjacent neurologic structures resulting in these transient sensory symptoms. He had these events during his hospitalization at [facility] and no new bleed or neurologic events were found. It is not clear if these represent seizures but management has been with the use of Keppra. Dr. Griffiths recommends increasing his Keppra dose by 50% from the current 1000 mg twice daily to 1500 mg twice daily. He has had cerebrovascular and cardiac workup for other etiologies for embolic stroke during his hospitalization at [facility] and these have been unrevealing. Given that he has had a workup recently and his symptoms have completely resolved, I do not think he needs to stay overnight for observation. Recommend we increase his Keppra dose as recommended by Dr. Griffiths with close outpatient follow-up with Dr. Rodriguez. (2) History of subarachnoid hemorrhage: Current visit: Yes Status: Acute No new bleeds on his neuroimaging today. (3) Paroxysmal atrial fibrillation: Current visit: Yes Status: Chronic Currently sinus rhythm with PACs. The decision as to when, if ever, to restart anticoagulation is deferred to Dr. Rodriguez and neurology. (4) Cough: Current visit: Yes Status: Acute I agree with the recent evaluation by Dr. Rodriguez that this is probably viral and I expect it will go away on its own. I see no indication for antibiotics. Symptom treatment with benzonatate can be tried. History of Present Illness Narrative: 78-year-old man with a history of stage III colon cancer, paroxysmal atrial fibrillation not anticoagulated because of recent small nontraumatic subarachnoid hemorrhage brought into the emergency room by family members because of complaints of a mild headache, initially left-sided and then right hand numbness/paresthesia feelings. The left arm symptoms were similar to the symptoms he had when he presented with his subarachnoid hemorrhage less motor weakness and less any involvement of his left leg which was part of the initial symptom complex. Subarachnoid hemorrhage was in August, hospitalized at [facility], not felt to require surgery. He was placed on Keppra prophylactically. He did not have any observed seizures but did have recurrent bouts of sensory symptoms in the same distribution, felt to be related to blood in the area, possible seizure versus irritation. It was felt that he may have amyloid angiopathy as the cause of his bleed. Anticoagulation with Eliquis was discontinued during that hospitalization. During his hospitalization he had CT angiography which did not show any flow-limiting lesions. He had an echocardiogram which did not reveal any embolic source but he did have significant atrial enlargement and there was a beginning of a conversation about occlusion of the left atrial appendage. He is also found to have a right below the knee DVT. He had a follow-up duplex scan October 04 showing no progression above the knee, chronic appearance to the clot. He was discharged from [facility] to the [facility] and has been home for about a week. There have been no falls. His appetite has been excellent. 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 He has some mild memory impairment, none of these have changed according to family members. He has had a cough interrupting his sleep since he got home from the [facility]. No reported fever and no significant sputum production. No complaints of chest pain. No reports of hemoptysis. Since arrival in the emergency room, his sensory complaints have completely resolved. Consults Consult date: 10/15/18 Review of Systems Review of Systems Complaint this morning now resolved. Denies vision changes. No reports of any trouble swallowing or choking episodes. Loose but nonproductive cough. No chest pains. No vomiting. No change in bowel or bladder function. Denies any weakness in his arms or legs. No recent falls. No large bruises. [facility] Medical History BPH (benign prostatic hyperplasia) COPD (chronic obstructive pulmonary disease) GERD (gastroesophageal reflux disease) History of colon cancer Intention tremor PE (pulmonary thromboembolism) Paroxysmal atrial fibrillation Surgical History Colonoscopy - MAC (11/07/16) Colonoscopy - MAC (11/27/17) EGD - MAC (11/07/16) Fracture, Closed Treatment Hemicolectomy Kidney Stone Extraction Transurethral prostatectomy Family History Mother Personal history of malignant neoplasm Father Personal history of malignant neoplasm Heart disease Sister No problems noted. Brother No problems noted. Social History Smoking/Tobacco Use Status: Former Tobacco Use alcohol intake: current alcohol intake frequency: a few times a week substance use type: does not use seatbelt use: always Exam Narrative Exam Narrative: Man appearing his chronologic age awake on stretcher no distress. Responses to questions are a bit delayed and mildly dysarthric. Slight confusion or language processing problem (for example when asked if he was having trouble sleeping his response was there were others in the room, interpreted as trouble sleeping when he was at the [facility] sharing a room with someone else). Pupils are 3 mm equal, extraocular movements spontaneously intact. Tongue midline. No JVD. Lungs are clear throughout no crackles wheeze or rub anywhere. Heart rhythm mostly regular, occasional ectopic beats, monitor shows PACs heart rate in the 70s. No heart murmur S3 or S4 heard. Abdomen obese soft normal bowel sounds no tenderness in any quadrant. Feet are warm no pitting edema. He has antigravity power present in all extremities. No pronator drift. Cmm Operator strength a little stronger on the right than left (right-handed) cold touch sensation intact in all extremities. I do not elicit DTRs anywhere. He has no rest tremor. He sits up unassisted. Results Last Vital Signs Temp 36.4 C L 10/15/18 11:12 Pulse 68 10/15/18 13:54 Resp 18 10/15/18 13:54 BP 137/67 10/15/18 13:54 Pulse Ox 94 L 10/15/18 13:54 Labs : 10/15/18 10:45 10/15/18 10:45 Laboratory Results - last 24 hr 10/15/18 10/15/18 10/15/18 10:45 10:45 10:45 WBC 10.51 RBC 4.43 L Hgb 13.3 L Hct 40.3 MCV 91.0 MCH 30.0 MCHC 33.0 RDW 12.5 Plt Count 232 MPV 9.4 Immature Gran % 0.3 Neutrophils % 73.1 Lymphocytes % 17.3 Monocytes % 6.9 Eosinophils % 2.1 Basophils % 0.3 Absolute Neutrophils 7.68 H Absolute Lymphocytes 1.82 Absolute Monocytes 0.73 H Absolute Eosinophils 0.22 Absolute Basophils 0.03 PT 9.3 INR 0.9 L APTT 21.4 Sodium 137 Potassium 4.0 Chloride 98 Carbon Dioxide 30.5 Anion Gap 8.5 BUN 16 Creatinine 1.02 Estimated GFR/1.73 m2 >= 60.00 Glucose 110 H Calcium 9.2 Magnesium 1.9 Total Bilirubin 0.4 AST 89 H ALT 26 Alkaline Phosphatase 82 Troponin I < 0.02 Total Protein 8.1 Albumin 3.7 Urine Color Urine Clarity Urine pH Ur Specific [place] Urine Protein Urine Ketones Urine Blood Urine Nitrite Urine Bilirubin Urine Urobilinogen Ur Leukocyte Esterase Urine RBC Urine WBC Ur Epithelial Cells Urine Crystals Urine Bacteria Urine Casts Urine Mucus Ur Culture Indicated? Urine Glucose 10/15/18 11:57 WBC RBC Hgb Hct MCV MCH MCHC RDW Plt Count MPV Immature Gran % Neutrophils % Lymphocytes % Monocytes % Eosinophils % Basophils % Absolute Neutrophils Absolute Lymphocytes Absolute Monocytes Absolute Eosinophils Absolute Basophils PT INR APTT Sodium Potassium Chloride Carbon Dioxide Anion Gap BUN Creatinine Estimated GFR/1.73 m2 Glucose Calcium Magnesium Total Bilirubin AST ALT Alkaline Phosphatase Troponin I Total Protein Albumin Urine Color Yellow Urine Clarity Clear Urine pH 7.0 Ur Specific [place] 1.015 Urine Protein Negative Urine Ketones Negative Urine Blood Trace-intact H Urine Nitrite Negative Urine Bilirubin Negative Urine Urobilinogen 0.2 Ur Leukocyte Esterase Negative Urine RBC 5-10 H Urine WBC 0-2 Ur Epithelial Cells Rare Urine Crystals Negative Urine Bacteria Negative Urine Casts Negative Urine Mucus Negative Ur Culture Indicated? No Urine Glucose Negative CT scan and MRI of the brain show chronic changes but no acute bleed or CVA.
--- NOTE | 2018-10-15 15:07 | NUR.NOTE ---
patient laying comfortbaly on stretcher, patient to be discharged home Nursing Note:
== END 2018-10-15 15:36 | disposition home or self-care (01) ==
PROVIDERS: Physician Assistant; Emergency Provider Physician Assistant; PCP Family Medicine
DX: R20.2 Paresthesia of skin (principal); R51 Headache; R90.82 White matter disease, unspecified; F80.2 Mixed receptive-expressive language disorder; J44.9 Chronic obstructive pulmonary disease, unspecified; Z87.891 Personal history of nicotine dependence; I10 Essential (primary) hypertension; Z86.79 Personal history of other diseases of the circulatory system
CPT/HCPCS: 36415; 70544; 80053; 96374; 99253; 99285; 70450; 70551; 71046; 81003; 81015; 83735; 84484; 85025; 85610; 85730; J2060

== ENCOUNTER 2018-10-21 11:56 | Emergency (ER) | payer MEDICARE, SELFPAY ==
[2018-10-21 11:59] VITALS: BP 159/95; PULSE 87; RESP 18
[2018-10-21 12:04] VITALS: TEMP 36.4; O2SAT 96
--- NOTE | 2018-10-21 12:14 | DI.COMBO_ITS ---
SYMPTOM/DIAGNOSIS: CONFUSION, RECENT SAH, COUGH NONCONTRAST HEAD CT: The study was carried out without contrast enhancement and is compared with the previous exam of 10/15/18. There is no evidence of an intra/extra-axial hemorrhage, mass or edema and nothing to suggest a territorial infarct. Again noted is a right parietal craniotomy and simone hole defect in the skull. The ventricles are dilated consistent with central atrophy. There are regions of diminished absorption in the frontoparietal white matter bilaterally and again noted are bilateral, likely old, basal ganglia lacunes. The midline is preserved throughout. Again noted are findings consistent with chronic maxillary and ethmoid sinusitis. The mastoid air cells appear normal with nothing to suggest a mastoid air cell effusion. IMPRESSION: Atrophy, small vessel disease, old lacunes and evidence of atherosclerotic disease involving the internal carotid arteries. These findings are unchanged when compared with the previous examination of 10/15/18. There is no evidence of a superimposed acute intracranial abnormality. PA AND LATERAL CHEST: Since the previous examination, there is a question regarding interval development of a small patch of left lower lobe pneumonitis. The lungs are otherwise free of infiltrate. There is no pleural effusion. The heart is top limits of normal in size. The hilar structures, mediastinum and tracheal air column are intact. A right subclavian catheter ends comfortably in the superior vena cava and is unchanged in position when compared with prior images. SUMMARY: Question interval development of a small region of left lower lobe pneumonitis. These findings were conveyed to Dr. Busch immediately following completion of the examination.
--- NOTE | 2018-10-21 12:15 | W.ED.GENAD ---
Discharge Plan Disposition Patient Disposition: HOME Condition: Improving Discharge Details Chief Complaint: AMS/LOC Clinical Impression: Left lower lobe pneumonia Primary Care Provider: Timothy Rodriguez ED Provider: Quique Busch Home Meds and New Rx's Prescriptions: New cefdinir 300 mg capsule 300 mg PO Q12H 10 Days Qty: 20 RF: 0 Continued Centrum Ultra Men's 8 mg iron- 200 mcg-600 mcg tablet 1 tab PO DAILY RF: 0 ranitidine HCl 150 mg capsule 150 mg PO BID Qty: 180 RF: 3 simvastatin 20 MG tablet 20 mg PO HS Qty: 90 RF: 3 acetaminophen 500 MG tablet 500 mg PO BID RF: 0 sertraline 50 MG tablet 50 mg PO DAILY Qty: 90 RF: 3 benzonatate [Tessalon Perles] 100 mg capsule 100 mg PO TID PRN (Reason: cough) Qty: 10 RF: 0 loratadine 10 mg Capsule 1 dose PO DAILY RF: 0 levetiracetam [Keppra] 500 mg tablet 1,500 mg PO BID 30 Days Qty: 180 RF: 0 melatonin 3 mg Tablet RF: 0 Medical Decision Making 78-year-old male presents from home with his family with days of mildly progressive and somewhat intermittent episodes of confusion. This morning was associated with transient chest discomfort he is also had a cough and subjective fevers. He arrives improved, afebrile, with nonfocal neurologic exam. Differential diagnosis is broad including occult infection, recurrent subarachnoid hemorrhage, electrolyte abnormality, UTI, or dehydration. Therefore, IV access was established, patient given small amount of fluids, referred for chest x-ray, CT scan of the head, and laboratory testing. Patients metabolic panel is reassuring, he does have a white blood cell count of 11. CT unremarkable for any acute process. Chest x-ray does reveal early left basilar infiltrate. Patient was given a gram of Rocephin in the emergency department. He was consulted upon by care management with plans for increased care in the home. I will placed on cefdinir. Patient has follow-up with Dr. Ny tomorrow we will asked that this be pushed back a couple of days. Return precautions to the ER were discussed with the family prior to discharge. Medical Records Medical records reviewed: Yes I reviewed the patient's medical records. Lab Data Lab results reviewed: Yes I reviewed the patient's lab results. Laboratory Tests Range/Units 10/21/18 10/21/18 10/21/18 12:16 12:16 12:27 WBC (4.4-10.8) k/cumm 11.05 H RBC (4.50-6.00) m/cumm 4.39 L Hgb (13.5-17.5) g/dL 13.3 L Hct (40.0-50.0) % 39.7 L MCV (80-95) fL 90.4 MCH (27.0-33.0) pg 30.3 MCHC (32.0-36.0) g/dL 33.5 RDW (11.8-14.1) % 12.7 Plt Count (130-400) x1000/uL 208 MPV (8.0-11.0) fL 9.0 Immature Gran % 0.2 Neutrophils % 82.8 Lymphocytes % 9.9 Monocytes % 6.2 Eosinophils % 0.5 Basophils % 0.4 Absolute Neutrophils (1.2-6.7) k/cumm 9.15 H Absolute Lymphocytes (1.2-3.4) k/cumm 1.09 L Absolute Monocytes (0.11-0.7) k/cumm 0.69 Absolute Eosinophils (0.0-0.7) k/cumm 0.06 Absolute Basophils (0.0-0.2) k/cumm 0.04 Sodium (136-145) mmol/L 137 Potassium (3.5-5.1) mmol/L 3.9 Chloride (98-107) mmol/L 99 Carbon Dioxide (21.0-32.0) mmol/L 27.3 Anion Gap (3-11) mmol/L 10.7 BUN (7-18) mg/dL 14 Creatinine (0.70-1.30) mg/dL 0.94 Estimated GFR/1.73 m2 (mL/min/1.73m2) >= 60.00 Glucose (70-100) mg/dL 124 H Calcium (8.5-10.1) mg/dL 9.1 Magnesium (1.8-2.4) mg/dL 1.9 Total Bilirubin (0.2-1.0) mg/dL 0.4 AST (15-37) U/L 93 H ALT (12-78) U/L 26 Alkaline Phosphatase (46-116) U/L 71 Troponin I (0.00-0.06) ng/mL 0.02 Total Protein (6.4-8.2) g/dL 7.8 Albumin (3.4-5.0) g/dL 3.4 Urine Color (Yellow) Yellow Urine Clarity Clear Urine pH (5-8) 7.0 Ur Specific [place] (1.005-1.025) <= 1.005 Urine Protein (Negative) mg/dL Negative Urine Ketones (Negative) mg/dL Negative Urine Blood (Negative) Small H Urine Nitrite (Negative) Negative Urine Bilirubin (Negative) Negative Urine Urobilinogen (Up TO 0.2) EU/dL 0.2 Ur Leukocyte Esterase (Negative) Negative Urine RBC (0-2) 3-5 H Urine WBC (0-5) HPF Negative Ur Epithelial Cells (Negative) HPF Negative Urine Crystals (Negative) HPF Negative Urine Bacteria (Negative) HPF Rare Urine Casts (Negative) LPF Negative Urine Mucus (Negative) Negative Urine Other (Negative) Negative Ur Culture Indicated? No Urine Glucose (Negative) mg/dL Negative ECG Data Attestation: I personally reviewed and interpreted this ECG (s) as follows: Interpretation: Normal sinus rhythm, rate of 90, QRS is narrow, there is no ST segment elevation HPI General Mode of arrival: wheelchair. Date/Time Provider Initiated Documentation: 10/21/18 11:57. Limitations to Documentation: no limitations. Information obtained by: patient and family. History of Present Illness 78 year old M presents to the emergency department with the chief complaint of Confusion, described as mild, Patient started experiencing this day(s) and it has been intermittent. No relieving factors improve symptom(s), No exacerbating factors reported . Patient notes cough and fever/chills. Patient did receive the following treatments prior to arrival, none HPI Narrative: 78-year-old male presents from home with his family. He is known to me from previous admissions and most recently for subarachnoid hemorrhage. His history of paroxysmal atrial fibrillation and he is not currently anticoagulated after his most recent admission for bleeding. He presents today with confusion has been slowly escalating over days time. This morning was associated with mild hypertension and some searching for words. These have resolved. There was no focal weakness. He has not fallen or injured himself in any way. Is been taking medications as prescribed. He has had a cough and low-grade fever. This morning he complained of some left anterior chest burning discomfort that dissipated over minutes time Related Data Home Medications Medication Instructions Recorded Confirmed simvastatin 20 mg PO HS #90 tab-cap 01/18/18 10/21/18 acetaminophen 500 mg PO BID tab-cap 02/09/18 10/21/18 sertraline 50 mg PO DAILY #90 tab-cap 02/09/18 10/21/18 ranitidine 150 mg capsule 150 mg PO BID #180 cap 08/10/18 10/21/18 loratadine 1 dose PO DAILY 09/14/18 10/21/18 multivit,Ca,min-iron 8 mg-folic 1 tab PO DAILY tab 10/12/18 10/21/18 acid 200 mcg-lycopene 600 mcg tablet levetiracetam [Keppra] 1,500 mg PO BID 30 Days #180 tab 10/15/18 10/21/18 benzonatate 100 mg capsule 100 mg PO TID PRN #10 cap 10/20/18 10/21/18 cefdinir 300 mg PO Q12H 10 Days #20 cap 10/21/18 melatonin 10/21/18 Previous Rx's Medication Instructions Recorded simvastatin 20 mg PO HS #90 tab-cap 01/18/18 sertraline 50 mg PO DAILY #90 tab-cap 02/09/18 ranitidine 150 mg capsule 150 mg PO BID #180 cap 08/10/18 levetiracetam [Keppra] 1,500 mg PO BID 30 Days #180 tab 10/15/18 benzonatate 100 mg capsule 100 mg PO TID PRN #10 cap 10/20/18 cefdinir 300 mg PO Q12H 10 Days #20 cap 10/21/18 Allergies Allergy/AdvReac Type Severity Reaction Status Date / Time pantoprazole sodium Allergy Severe THROAT Unverified 10/15/18 11:22 [From Protonix] SWELLING/CHILLS General Stated Complaint: AMS/LOC ANY: 2 Review of Systems Review of Systems 8 systems reviewed and otherwise negative [facility] Medical History BPH (benign prostatic hyperplasia) COPD (chronic obstructive pulmonary disease) GERD (gastroesophageal reflux disease) History of colon cancer Intention tremor PE (pulmonary thromboembolism) Paroxysmal atrial fibrillation Surgical History Colonoscopy - MAC (11/07/16) Colonoscopy - MAC (11/27/17) EGD - MAC (11/07/16) Fracture, Closed Treatment Hemicolectomy Kidney Stone Extraction Transurethral prostatectomy Family History Mother Personal history of malignant neoplasm Father Personal history of malignant neoplasm Heart disease Sister No problems noted. Brother No problems noted. Social History Smoking/Tobacco Use Status: Former Tobacco Use alcohol intake: current alcohol intake frequency: a few times a week substance use type: does not use seatbelt use: always Exam Narrative Exam Narrative: GEN: awake, alert, oriented 3. Pleasant, well groomed, interactive. HEAD: Normocephalic, atraumatic ENT: Mucous membranes dry, oropharynx unremarkable, External ear exam unremarkable EYES: PERRL, EOMI NECK: Full ROM, no ELIZABETH, no menigismus CHEST/RESP: Nontender, clear to auscultation bilateral, no wheeze/rhonchi/rales CARDIOVASCULAR: RRR, no murmur, rub noel. 2+ Rad pulse bilateral ABDOMEN: Soft, nontender, no mass. +Bowel sounds EXT: Full ROM, no edema, no rash Neuro: Grossly normal neurologic exam, conversant, interactive. Follows commands. Slow to respond but speech is fluent. Cranial nerves II through XII intact. Correctly identifies objects such as wristwatch Psych: Speech fluent, thoughts congruent, affect normal Course Vital Signs Pulse 87 10/21/18 11:59 Respiratory Rate 18 10/21/18 11:59 Blood Pressure 159/95 H 10/21/18 11:59 Temperature 36.4 C L 10/21/18 12:04 Pulse 87 10/21/18 11:59 Respiratory Rate 18 10/21/18 11:59 Respiratory Effort Non-Labored 10/21/18 11:59 Blood Pressure 159/95 H 10/21/18 11:59 Blood Pressure Position Supine 10/21/18 11:59 Pulse Oximetry 96 10/21/18 12:04 Oxygen Delivery Method Room Air 10/21/18 12:04 Oxygen Flow Rate 0 10/21/18 12:04
--- NOTE | 2018-10-21 12:19 | ED.GENADUL_ITS ---
Discharge Plan Disposition Patient Disposition: HOME Condition: Improving Discharge Details Chief Complaint: AMS/LOC Clinical Impression: Left lower lobe pneumonia Primary Care Provider: Timothy Rodriguez ED Provider: Quique Busch Home Meds and New Rx's Prescriptions: New cefdinir 300 mg capsule 300 mg PO Q12H 10 Days Qty: 20 RF: 0 Continued Centrum Ultra Men's 8 mg iron- 200 mcg-600 mcg tablet 1 tab PO DAILY RF: 0 ranitidine HCl 150 mg capsule 150 mg PO BID Qty: 180 RF: 3 simvastatin 20 MG tablet 20 mg PO HS Qty: 90 RF: 3 acetaminophen 500 MG tablet 500 mg PO BID RF: 0 sertraline 50 MG tablet 50 mg PO DAILY Qty: 90 RF: 3 benzonatate [Tessalon Perles] 100 mg capsule 100 mg PO TID PRN (Reason: cough) Qty: 10 RF: 0 loratadine 10 mg Capsule 1 dose PO DAILY RF: 0 levetiracetam [Keppra] 500 mg tablet 1,500 mg PO BID 30 Days Qty: 180 RF: 0 melatonin 3 mg Tablet RF: 0 Medical Decision Making 78-year-old male presents from home with his family with days of mildly p rogressive and somewhat intermittent episodes of confusion. This morning was associated with transient chest discomfort he is also had a cough and subjective fevers. He arrives improved, afebrile, with nonfocal neurologic exam. Differential diagnosis is broad including occult infection, recurrent subarachnoid hemorrhage, electrolyte abnormality, UTI, or dehydration. Therefore, IV access was established, patient given small amount of fluids, referred for chest x-ray, CT scan of the head, and laboratory testing. Patients metabolic panel is reassuring, he does have a white blood cell count of 11. CT unremarkable for any acute process. Chest x-ray does reveal early left basilar infiltrate. Patient was given a gram of Rocephin in the emergency department. He was consulted upon by care management with plans for increased care in the home. I will placed on cefdinir. Patient has follow-up with Dr. Ny tomorrow we will asked that this be pushed back a couple of days. Return precautions to the ER were discussed with the family prior to discharge. Medical Records Medical records reviewed: Yes I reviewed the patient's medical records. Lab Data Lab results reviewed: Yes I reviewed the patient's lab results. Laboratory Tests Range/Units 12/27/18 12/27/18 12/27/18 12:16 12:16 12:27 WBC (4.4-10.8) k/cumm 11.05 H RBC (4.50-6.00) m/cumm 4.39 L Hgb (13.5-17.5) g/dL 13.3 L Hct (40.0-50.0) % 39.7 L MCV (80-95) fL 90.4 MCH (27.0-33.0) pg 30.3 MCHC (32.0-36.0) g/dL 33.5 RDW (11.8-14.1) % 12.7 Plt Count (130-400) x1000/uL 208 MPV (8.0-11.0) fL 9.0 Immature Gran % 0.2 Neutrophils % 82.8 Lymphocytes % 9.9 Monocytes % 6.2 Eosinophils % 0.5 Basophils % 0.4 Absolute Neutrophils (1.2-6.7) k/cumm 9.15 H Absolute Lymphocytes (1.2-3.4) k/cumm 1.09 L Absolute Monocytes (0.11-0.7) k/cumm 0.69 Absolute Eosinophils (0.0-0.7) k/cumm 0.06 Absolute Basophils (0.0-0.2) k/cumm 0.04 Sodium (136-145) mmol/L 137 Potassium (3.5-5.1) mmol/L 3.9 Chloride (98-107) mmol/L 99 Carbon Dioxide (21.0-32.0) mmol/L 27.3 Anion Gap (3-11) mmol/L 10.7 BUN (7-18) mg/dL 14 Creatinine (0.70-1.30) mg/dL 0.94 Estimated GFR/1.73 m2 (mL/min/1.73m2) >= 60.00 Glucose (70-100) mg/dL 124 H Calcium (8.5-10.1) mg/dL 9.1 Magnesium (1.8-2.4) mg/dL 1.9 Total Bilirubin (0.2-1.0) mg/dL 0.4 AST (15-37) U/L 93 H ALT (12-78) U/L 26 Alkaline Phosphatase (46-116) U/L 71 Troponin I (0.00-0.06) ng/mL 0.02 Total Protein (6.4-8.2) g/dL 7.8 Albumin (3.4-5.0) g/dL 3.4 Urine Color (Yellow) Yellow Urine Clarity Clear Urine pH (5-8) 7.0 Ur Specific [place] (1.005-1.025) <= 1.005 Urine Protein (Negative) mg/dL Negative Urine Ketones (Negative) mg/dL Negative Urine Blood (Negative) Small H Urine Nitrite (Negative) Negative Urine Bilirubin (Negative) Negative Urine Urobilinogen (Up TO 0.2) EU/dL 0.2 Ur Leukocyte Esterase (Negative) Negative Urine RBC (0-2) 3-5 H Urine WBC (0-5) HPF Negative Ur Epithelial Cells (Negative) HPF Negative Urine Crystals (Negative) HPF Negative Urine Bacteria (Negative) HPF Rare Urine Casts (Negative) LPF Negative Urine Mucus (Negative) Negative Urine Other (Negative) Negative Ur Culture Indicated? No Urine Glucose (Negative) mg/dL Negative ECG Data Attestation: I personally reviewed and interpreted this ECG (s) as follows: Interpretation: Normal sinus rhythm, rate of 90, QRS is narrow, there is no ST segment elevation HPI General Mode of arrival: wheelchair . Date/Time Provider Initiated Documentation: 10/21/18 11:57 . Limitations to Documentation: no limitations . Information obtained by: patient and family . History of Present Illness 78 year old M presents to the emergency department with the chief complaint of Confusion, described as mild, Patient started experiencing this day(s) and it has been intermittent. No relieving factors improve symptom(s), No exacerbating factors reported . Patient notes cough and fever/chills. Sia ent did receive the following treatments prior to arrival, none HPI Narrative: 78-year-old male presents from home with his family. He is known to me from previous admissions and most recently for subarachnoid hemorrhage. His history of paroxysmal atrial fibrillation and he is not currently anticoagulated after his most recent admission for bleeding. He presents today with confusion has been slowly escalating over days time. This morning was associated with mild hypertension and some searching for words. These have resolved. There was no focal weakness. He has not fallen or injured himself in any way. Is been taking medications as prescribed. He has had a cough and low-grade fever. This morning he complained of some left anterior chest burning discomfort that dissipated over minutes time Related Data Home Medications Medication Instructions Recorded Confirmed simvastatin 20 mg PO HS #90 tab-cap 01/18/18 10/21/18 acetaminophen 500 mg PO BID tab-cap 02/09/18 10/21/18 sertraline 50 mg PO DAILY #90 tab-cap 18 10/21/18 ranitidine 150 mg capsule 150 mg PO BID #180 cap 08/10/18 10/21/18 loratadine 1 dose PO DAILY 09/14/18 10/21/18 multivit,Ca,min-iron 8 mg-folic 1 tab PO DAILY tab 10/12/18 10/21/18 acid 200 mcg-lycopene 600 mcg tablet levetiracetam [Keppra] 1,500 mg PO BID 30 Days #180 tab 10/15/18 10/21/18 benzonatate 100 mg capsule 100 mg PO TID PRN #10 cap 10/20/18 10/21/18 cefdinir 300 mg PO Q12H 10 Days #20 cap 10/21/18 melatonin 10/21/18 Previous Rx's Medication Instructions Recorded simvastatin 20 mg PO HS #90 tab-cap 01/18/18 sertraline 50 mg PO DAILY #90 tab-cap 02/09/18 ranitidine 150 mg capsule 150 mg PO BID #180 cap 08/10/18 levetiracetam [Keppra] 1,500 mg PO BID 30 Days #180 tab 10/15/18 benzonatate 100 mg capsule 100 mg PO TID PRN #10 cap 10/20/18 cefdinir 300 mg PO Q12H 10 Days #20 cap 10/21/18 Allergies Allergy/AdvReac Type Severity Reaction Status Date / Time pantoprazole sodium Allergy Severe THROAT Unverified 10/15/18 11:22 [From Protonix] SWELLING/CHILLS General Stated Complaint: AMS/LOC ANY: 2 Review of Systems Review of Systems 8 systems reviewed and otherwise negative [facility] Medical History BPH (benign prostatic hyperplasia) COPD (chronic obstructive pulmonary disease) GERD (gastroesophageal reflux disease) History of colon cancer Intention tremor PE (pulmonary thromboembolism) Paroxysmal atrial fibrillation Surgical History Colonoscopy - MAC (11/07/16) Colonoscopy - MAC (11/27/17) EGD - MAC (11/07/16) Fracture, Closed Treatment Hemicolectomy Kidney Stone Extraction Transurethral prostatectomy Family History Mother Personal history of malignant neoplasm Father Personal history of malignant neoplasm Heart disease Sister No problems noted. Brother No problems noted. Social History Smoking/Tobacco Use Status: Former Tobacco Use alcohol intake: current alcohol intake frequency: a few times a week substance use type: does not use seatbelt use: always Exam Narrative Exam Narrative: GEN: awake, alert, oriented 3. Pleasant, well groomed, interactive. HEAD: Normocephalic, atraumatic ENT: Mucous membranes dry, oropharynx unremarkable, External ear exam unremarkable EYES: PERRL, EOMI NECK: Full ROM, no ELIZABETH, no menigismus CHEST/RESP: Nontender, clear to auscultation bilateral, no wheeze/rhonchi/rales CARDIOVASCULAR: RRR, no murmur, rub noel. 2+ Rad pulse bilateral ABDOMEN: Soft, nontender, no mass. +Bowel sounds EXT: Full ROM, no edema, no rash Neuro: Grossly normal neurologic exam, conversant, interactive. Follows commands. Slow to respond but speech is fluent. Cranial nerves II through XII intact. Correctly identifies objects such as wristwatch Psych: Speech fluent, thoughts congruent, affect normal Course Vital Signs Pulse 87 10/21/18 11:59 Respiratory Rate 18 10/21/18 11:59 Blood Pressure 159/95 H 10/21/18 11:59 Temperature 36.4 C L 10/21/18 12:04 Pulse 87 10/21/18 11:59 Respiratory Rate 18 10/21/18 11:59 Respiratory Effort Non-Labored 10/21/18 11:59 Blood Pressure 159/95 H 10/21/18 11:59 Blood Pressure Position Supine 10/21/18 11:59 Pulse Oximetry 96 10/21/18 12:04 Oxygen Delivery Method Room Air 10/21/18 12:04 Oxygen Flow Rate 0 10/21/18 12:04
[2018-10-21 12:25] LABS: Abs Immature Grans 0.02 k/cumm (0.0-0.09); Absolute Basophil Count 0.04 k/cumm (0.0-0.2); Absolute Eosinophil Count 0.06 k/cumm (0.0-0.7); Absolute Lymphocyte Count 1.09 k/cumm (1.2-3.4); Absolute Monocyte Count 0.69 k/cumm (0.11-0.7); Absolute Neutrophil Count 9.15 k/cumm (1.2-6.7); Basophils % 0.4; Eosinophils % 0.5; HCT 39.7 % (40.0-50.0); HGB 13.3 g/dL (13.5-17.5); Immature Grans % 0.2; Lymphocytes % 9.9; Mean Corp. HGB Concentration 33.5 g/dL (32.0-36.0); Mean Corpuscular Hemoglobin 30.3 pg (27.0-33.0); Mean Corpuscular Volume 90.4 fL (80-95); Monocytes % 6.2; Neutrophils % 82.8; Platelet Count 208 x1000/uL (130-400); RBC 4.39 m/cumm (4.50-6.00); RBC Distribution Width 12.7 % (11.8-14.1); White Blood Cell Count 11.05 k/cumm (4.4-10.8)
[2018-10-21 12:35] LABS: Bilirubin Negative (Negative); Blood Small (Negative); Clarity Clear; Glucose Negative (Negative); Ketones Negative (Negative); Leukocyte Esterase Negative (Negative); Nitrite Negative (Negative); Specific Gravity <= 1.005 (1.005-1.025); Urobilinogen 0.2 EU/dL (Up TO 0.2)
[2018-10-21 12:49] LABS: Bacteria Rare HPF (Negative); C & S Indicated? No; Casts Negative LPF (Negative); Crystals Negative HPF (Negative); Epithelial Cells Negative HPF (Negative); Mucus Negative (Negative); Other Cells Negative (Negative); WBC Negative HPF (0-5)
[2018-10-21 12:50] LABS: ALT 26 U/L (12-78); AST 93 U/L (15-37); Albumin 3.4 g/dL (3.4-5.0); Alkaline Phosphatase 71 U/L (46-116); Anion Gap 10.7 mmol/L (3-11); BUN 14 mg/dL (7-18); Bilirubin, Total 0.4 mg/dL (0.2-1.0); CO2 27.3 mmol/L (21.0-32.0); CREATININE 0.94 mg/dL (0.70-1.30); Calcium 9.1 mg/dL (8.5-10.1); Chloride 99 mmol/L (98-107); Glucose 124 mg/dL (70-100); Magnesium 1.9 mg/dL (1.8-2.4); Potassium 3.9 mmol/L (3.5-5.1); Sodium 137 mmol/L (136-145); Total Protein 7.8 g/dL (6.4-8.2); Troponin I 0.02 ng/mL (0.00-0.06)
--- NOTE | 2018-10-21 12:51 | NUR.NOTE ---
patient in diagnostic imaging Nursing Note:
[2018-10-21 13:03] VITALS: BP 134/86; PULSE 87; RESP 17; TEMP 36.6; O2SAT 94
--- NOTE | 2018-10-21 13:04 | NUR.NOTE ---
patient returned from imagingm denies pain or discomfort Nursing Note:
--- NOTE | 2018-10-21 13:54 | NUR.NOTE ---
laurent met with patient Nursing Note:
[2018-10-21 13:55] VITALS: BP 141/82; PULSE 80
--- NOTE | 2018-10-21 13:59 | NUR.NOTE ---
patient eating lunch Nursing Note:
--- NOTE | 2018-10-21 14:33 | PDOC.ERCMPRO ---
Care Management Progress Note CM met with Bryan, his and daughter to discuss his current situation at home. CM provided review of community based supports and services. CM spoke with Felipa Frazier of [facility] who reported Bryan currently has RN/2x per week. Joe reports OT and PT services were offered, but her and Bryan felt confident in managing his care needs at home, and Bryan has been completing his Physical Therapy exercise on his own and has been motivated to recover. Bryan reports increased weakness since his discharge at the [facility] which he attributes to a cold likely pneumonia which is being treated with antibiotics. CM was able to identify and Joe was able to verbalize that she struggles to ask for help and feels she should be able to manage all of Bryan's care needs at home. She feels proud, and does not like asking for help. She was able to laugh when CM encouraged her to help her family feel fulfilled by being able to help her and her . Help them, help you, it will make them feel good. Joe and her daughter were able to sucessfully process their feelings around this, and their daughter shared frustration at feeling Joe is being a barrier to a better quality of life for herself and Bryan as she reported, her mother is becoming run down with all the tasks. Joe reports Bryan is able to get back and forth to the bathroom and uses a walker at home. He is able to transfer in and out of bed, but has struggled more recently due to increased weakness from illness. Joe reports the couple have three daughters who reside locally and help with ADLs including transportation and errands as she has never driven and Bryan is now unable. CM reviewed community based outlets for support including case management and social work through home health and CCC at [facility]. Joe reported that Bryan has an appointment with Dr. Ny tomorrow and inquired to moving the appointment back due to being so close to discharge. CM encouraged the couple to discuss with Dr. Busch and relayed this information to him as well. Dr. Busch reported he will again discuss increasing services in the home setting with the family, including PT/OT/[employer]. CM reviewed ordering guidelines with Dr. Busch as well.
--- NOTE | 2018-10-21 15:04 | CMPROGNOTE_ITS ---
Care Management Progress Note CM met with Bryan, his and daughter to discuss his current situation at home. CM provided review of community based supports and services. CM spoke with Felipa Frazier of [facility] who reported Bryan currently has RN/2x per week. Joe reports OT and PT services were offered, but her and Bryan felt confident in managing his care needs at home, and Bryan has been completing his Physical Therapy exercise on his own and has been motivated to recover. Bryan reports increased weakness since his discharge at the [facility] which he attributes to a cold likely pneumonia which is being treated with antibiotics. CM was able to identify and Joe was able to verbalize that she struggles to ask for help and feels she should be able to manage all of Bryan's care needs at home. She feels proud, and does not like asking for help. She was able to laugh when CM encouraged her to help her family feel fulfilled by being able to help her and her . Help them, help you, it will make them feel good. Joe and her daughter were able to sucessfully process their feelings around this, and their daughter shared frustration at feeling Joe is being a barrier to a better quality of life for herself and Bryan as she reported, her mother is becoming run down with all the tasks. Joe reports Bryan is able to get back and forth to the bathroom and uses a walker at home. He is able to transfer in and out of bed, but has struggled more recently due to increased weakness from illness. Joe reports the couple have three daughters who reside locally and help with ADLs including transportation and errands as she has never driven and Bryan is now unable. CM reviewed community based outlets for support including case management and social work through home health and CCC at [facility]. Joe reported that Bryan has an appointment with Dr. Ny tomorrow and inquired to moving the appointment back due to being so close to discharge. CM encouraged the couple to discuss with Dr. Busch and relayed this information to him as well. Dr. Busch reported he will again discuss increasing services in the home setting with the family, including PT/OT/STRENGTH AND CONDITIONING COACH. CM reviewed ordering guidelines with Dr. Busch as well.
== END 2018-10-21 14:50 | disposition home or self-care (01) ==
PROVIDERS: Emergency Provider Emergency Medicine; PCP Family Medicine
DX: J18.9 Pneumonia, unspecified organism (principal); R07.9 Chest pain, unspecified; Z86.711 Personal history of pulmonary embolism; J44.9 Chronic obstructive pulmonary disease, unspecified; Z87.891 Personal history of nicotine dependence; I48.0 Paroxysmal atrial fibrillation
CPT/HCPCS: 36415; 36416; 80053; 82962; 93005; 96361; 96365; 96367; 99285; 70450; 71046; 81003; 81015; 83735; 84484; 85025; 93010; J0696

== ENCOUNTER 2018-10-29 09:50 | Emergency (ER) | payer MEDICARE, SELFPAY ==
[2018-10-29] VITALS (40 sets, daily range): BP systolic 116–161; BP diastolic 57–87; PULSE 47–76; RESP 12–20; TEMP 36.9–37; O2SAT 92–98
--- NOTE | 2018-10-29 09:49 | W.ED.GENAD ---
Discharge Plan Disposition Patient Disposition: HOME Condition: Stable Discharge Details Chief Complaint: CVA/TIA Clinical Impression: Right arm weakness Reason For Visit: BROOKS Primary Care Provider: Timothy Rodriguez ED Provider: Oralia Granados Home Meds and New Rx's Prescriptions: New divalproex [Depakote] 250 mg tablet,delayed release (DR/EC) 250 mg PO BID Qty: 14 RF: 0 Continued Centrum Ultra Men's 8 mg iron- 200 mcg-600 mcg tablet 1 tab PO DAILY RF: 0 ranitidine HCl 150 mg capsule 150 mg PO BID Qty: 180 RF: 3 simvastatin 20 MG tablet 20 mg PO HS Qty: 90 RF: 3 acetaminophen 500 MG tablet 500 mg PO BID RF: 0 sertraline 50 MG tablet 50 mg PO DAILY Qty: 90 RF: 3 benzonatate [Tessalon Perles] 100 mg capsule 100 mg PO TID PRN (Reason: cough) Qty: 10 RF: 0 loratadine 10 mg Capsule 1 dose PO DAILY RF: 0 levetiracetam [Keppra] 500 mg tablet 1,500 mg PO BID 30 Days Qty: 180 RF: 0 No Action divalproex [Depakote] 250 mg tablet,delayed release (DR/EC) 250 mg PO BID Qty: 14 RF: 0 divalproex [Depakote] 500 mg tablet,delayed release (DR/EC) 500 mg PO BID Qty: 60 RF: 2 Discharge Instructions Instructions: Valproic Acid (By mouth) Additional Instructions: Please return immediately to the emergency department if you develop any new or worsening symptoms or if you become otherwise concerned. It is extremely important that you make an appointment to be seen within the next week by your primary care doctor and in the next few weeks by your neurologist. After 1 week you will need your Depakote level increased, and you will be stopping your Keppra. You will need your primary care doctor to adjust these medications for you. Referrals: Timothy Rodriguez [Primary Care Provider] - Discharge Data Discharge Date/Time-TO BE ENTERED AT DEPARTURE: 10/29/18 13:42 Medical Decision Making Bryan Brown is an 78 y/o man with cancer, recent SAH presenting to the emergency department with right arm weakness and tingling which has been recurring over the past few months since SAH, negative MRI for same 10/12. Pt is well and non-toxic appearing. Benign neuro exam without focal deficit. Pt had CT upon arrival in the ED, neg for acute process. At this time given prior w/u for same, doubt stuttering TIA or other emergent vascular etiology. Suspect migraine vs seizure. Concern for possible metabolic/lyte derangement, possible persistent PNA. Plan for EKG, CXR, screening labs, discussion with PCP/neurology. I spoke with Dr. Rodriguez, who relayed that he had communicated with Pt's neurologist yesterday re: plan for recurrent right arm weakness. Plan for adding depakote, continue keppra, then after one week increase depakote and d/c keppra. /Michael will see Pt in f/u as outpt. I discussed Pt presentation and results with Pt's neurologist, [place]. Griffith[place] [facility] [place] recommended no further emergent intervention, add depakote 250 BID, continue keppra for one week as already discussed with Dr. Rodriguez. Pt continues to be asymptomatic. I had a lengthy discussion with Pt and family re: my discussions with PCP and neurology, medication plan, RTED precautions, and importance of outpt f/u with PCP and neurology. They verbalize understanding of the plan and are amenable. Medical Records Medical records reviewed: Yes I reviewed the patient's medical records. Imaging Data Radiologic Study: Attestation: I personally reviewed and interpreted this imaging study as follows: Radiologist's impression: PORTABLE AP CHEST: Comparison is made with 10/21/18. The heart is at the upper limits of normal in size. There is tortuosity of the thoracic aorta. The pulmonary vasculature appears stable. The tip of the central venous catheter is in good position in the superior vena cava. The lungs show no infiltrates, effusions or pneumothoraces. IMPRESSION: No acute pulmonary process. NONCONTRAST HEAD CT: Comparison is made with 10/21/18. There is cerebral atrophy consistent with the patient's age. There are areas of decreased attenuation in the white matter consistent with small vessel ischemic disease. No acute infarct, midline shift or mass effect is identified. No intracranial hemorrhage is seen. The ventricles are intact. The basilar cisterns are patent. There is mucus retention cyst or polyp in the right maxillary sinus. Mucosal thickening is seen in the left maxillary sinus. No fluid levels are seen in the visualized paranasal sinuses. The mastoid air cells are clear. The calvarium shows no acute fracture. Bilateral craniotomies and/or [place] holes are visualized. IMPRESSION: No acute intracranial process. Lab Data Lab results reviewed: Yes I reviewed the patient's lab results. Laboratory Tests Range/Units 10/29/18 10/29/18 10/29/18 11:20 11:20 11:20 WBC (4.4-10.8) k/cumm 6.53 RBC (4.50-6.00) m/cumm 4.24 L Hgb (13.5-17.5) g/dL 12.6 L Hct (40.0-50.0) % 38.5 L MCV (80-95) fL 90.8 MCH (27.0-33.0) pg 29.7 MCHC (32.0-36.0) g/dL 32.7 RDW (11.8-14.1) % 12.8 Plt Count (130-400) x1000/uL 187 MPV (8.0-11.0) fL 9.4 Immature Gran % 0.2 Neutrophils % 64.9 Lymphocytes % 21.7 Monocytes % 10.4 Eosinophils % 2.3 Basophils % 0.5 Absolute Neutrophils (1.2-6.7) k/cumm 4.24 Absolute Lymphocytes (1.2-3.4) k/cumm 1.42 Absolute Monocytes (0.11-0.7) k/cumm 0.68 Absolute Eosinophils (0.0-0.7) k/cumm 0.15 Absolute Basophils (0.0-0.2) k/cumm 0.03 PT (9.3-11.0) sec 9.4 INR (0.9-1.1) 0.9 Sodium (136-145) mmol/L 139 Potassium (3.5-5.1) mmol/L 4.0 Chloride (98-107) mmol/L 103 Carbon Dioxide (21.0-32.0) mmol/L 30.8 Anion Gap (3-11) mmol/L 5.2 BUN (7-18) mg/dL 16 Creatinine (0.70-1.30) mg/dL 0.97 Estimated GFR/1.73 m2 (mL/min/1.73m2) >= 60.00 Glucose (70-100) mg/dL 99 Lactate (0.6-1.4) mmol/L Calcium (8.5-10.1) mg/dL 8.8 Total Bilirubin (0.2-1.0) mg/dL 0.4 AST (15-37) U/L 100 H ALT (12-78) U/L 29 Alkaline Phosphatase (46-116) U/L 65 Troponin I (0.00-0.06) ng/mL < 0.02 Total Protein (6.4-8.2) g/dL 7.5 Albumin (3.4-5.0) g/dL 3.4 Range/Units 10/29/18 11:20 WBC (4.4-10.8) k/cumm RBC (4.50-6.00) m/cumm Hgb (13.5-17.5) g/dL Hct (40.0-50.0) % MCV (80-95) fL MCH (27.0-33.0) pg MCHC (32.0-36.0) g/dL RDW (11.8-14.1) % Plt Count (130-400) x1000/uL MPV (8.0-11.0) fL Immature Gran % Neutrophils % Lymphocytes % Monocytes % Eosinophils % Basophils % Absolute Neutrophils (1.2-6.7) k/cumm Absolute Lymphocytes (1.2-3.4) k/cumm Absolute Monocytes (0.11-0.7) k/cumm Absolute Eosinophils (0.0-0.7) k/cumm Absolute Basophils (0.0-0.2) k/cumm PT (9.3-11.0) sec INR (0.9-1.1) Sodium (136-145) mmol/L Potassium (3.5-5.1) mmol/L Chloride (98-107) mmol/L Carbon Dioxide (21.0-32.0) mmol/L Anion Gap (3-11) mmol/L BUN (7-18) mg/dL Creatinine (0.70-1.30) mg/dL Estimated GFR/1.73 m2 (mL/min/1.73m2) Glucose (70-100) mg/dL Lactate (0.6-1.4) mmol/L 1.2 Calcium (8.5-10.1) mg/dL Total Bilirubin (0.2-1.0) mg/dL AST (15-37) U/L ALT (12-78) U/L Alkaline Phosphatase (46-116) U/L Troponin I (0.00-0.06) ng/mL Total Protein (6.4-8.2) g/dL Albumin (3.4-5.0) g/dL ECG Data Attestation: I personally reviewed and interpreted this ECG (s) as follows: Interpretation: EKG shows sinus rhythm at 79 with frequent ectopic beats, incomplete right bundle branch block/left anterior fascicular block present on prior, no acute ischemic changes, nondiagnostic EKG HPI General Mode of arrival: EMS. Date/Time Provider Initiated Documentation: 10/29/18 09:53. Limitations to Documentation: no limitations. Information obtained by: patient, family, RN notes reviewed and old records reviewed. HPI Narrative: Bryan Brown is an 78-year-old man with history of recent subarachnoid hemorrhage, atrial fibrillation, COPD, HTN, HLD, PE presenting to the emergency department with right arm numbness and weakness. Patient is accompanied by his and daughter who also provide history. They report that patient had a subarachnoid hemorrhage just before , was seen here and then transferred to [facility]. He stated department for 1 week and then was sent to the [facility] for 2 weeks. He has been at home since that time. For the past 2 weeks or so patient has been having intermittent headaches that are sometimes accompanied by numbness in his right arm and weakness in his right arm. He has also had mild numbness in his left arm occasionally during these episodes. He has not had any weakness in his left arm. Episodes seem to occur typically in the early mornings. Family reports that patient was seen here just prior to Vickie for this, and had an MRI performed at that time. Episodes have been occurring essentially every morning. Patient's reports that patient had another episode this morning at 4 AM. Headache and right arm numbness/weakness resolved at approximately 5:30 AM. Patient then had another episode approximately an hour later. Patient reports that all symptoms are resolved at this time. He has no pain, no numbness/tingling, and no weakness of the extremities. He was recently seen and treated for pneumonia and continues to have cough. He does not have shortness of breath. He denies nausea/vomiting/diarrhea, fevers. Has been eating and drinking as usual. Related Data Home Medications Medication Instructions Recorded Confirmed simvastatin 20 mg PO HS #90 tab-cap 01/18/18 11/03/18 acetaminophen 500 mg PO BID tab-cap 02/09/18 11/03/18 sertraline 50 mg PO DAILY #90 tab-cap 02/09/18 11/03/18 ranitidine 150 mg capsule 150 mg PO BID #180 cap 08/10/18 11/03/18 loratadine 1 dose PO DAILY 09/14/18 11/03/18 multivit,Ca,min-iron 8 mg-folic 1 tab PO DAILY tab 10/12/18 11/03/18 acid 200 mcg-lycopene 600 mcg tablet levetiracetam [Keppra] 1,500 mg PO BID 30 Days #180 tab 10/15/18 11/03/18 benzonatate 100 mg capsule 100 mg PO TID PRN #10 cap 10/20/18 11/03/18 divalproex [Depakote] 250 mg PO BID #14 tab 10/29/18 11/03/18 divalproex 250 mg tablet,delayed 250 mg PO BID #14 tab 11/03/18 11/03/18 release divalproex 500 mg tablet,delayed 500 mg PO BID #60 tab 11/03/18 11/03/18 release Previous Rx's Medication Instructions Recorded simvastatin 20 mg PO HS #90 tab-cap 01/18/18 sertraline 50 mg PO DAILY #90 tab-cap 02/09/18 ranitidine 150 mg capsule 150 mg PO BID #180 cap 08/10/18 levetiracetam [Keppra] 1,500 mg PO BID 30 Days #180 tab 10/15/18 benzonatate 100 mg capsule 100 mg PO TID PRN #10 cap 10/20/18 divalproex [Depakote] 250 mg PO BID #14 tab 10/29/18 divalproex 250 mg tablet,delayed 250 mg PO BID #14 tab 11/03/18 release divalproex 500 mg tablet,delayed 500 mg PO BID #60 tab 11/03/18 release Allergies Allergy/AdvReac Type Severity Reaction Status Date / Time pantoprazole sodium Allergy Severe THROAT Unverified 11/03/18 08:40 [From Protonix] SWELLING/CHILLS General ANY: 2 Review of Systems Review of Systems Constitutional: denies fevers Eyes: denies eye pain ENT: denies facial pain, dental pain, sore throat Cardiovascular: denies chest pain, edema Respiratory: denies SOB, reports cough GI: denies abdominal pain, vomiting, diarrhea : denies flank pain MSK: denies back pain, neck pain, arthralgias, myalgias Skin: denies rash Neuro: denies headaches, lightheadedness, reports RUE weakness, tingling, LUE tingling PFSH Medical History Seizures, post-traumatic (Acute) BPH (benign prostatic hyperplasia) COPD (chronic obstructive pulmonary disease) GERD (gastroesophageal reflux disease) History of colon cancer Intention tremor PE (pulmonary thromboembolism) Paroxysmal atrial fibrillation Surgical History Colonoscopy - MAC (11/07/16) Colonoscopy - MAC (11/27/17) EGD - MAC (11/07/16) Fracture, Closed Treatment Hemicolectomy Kidney Stone Extraction Transurethral prostatectomy Social History Smoking/Tobacco Use Status: Former Tobacco Use alcohol intake: current alcohol intake frequency: a few times a week substance use type: does not use seatbelt use: always Exam Narrative Exam Narrative: Constitutional: well and [id number], pleasant, conversing normally HENT: head atraumatic, normocephalic normal inspection, mucous membranes moist Eyes: conjunctiva normal, sclera normal, right pupil 4mm and irregular (family reports as 2/2 trauma in the past, unchanged), EOMI, left pupil RRLA 3mm Neck: no stridor, normal ROM, trachea midline Chest: normal inspection Resp: normal work of breathing, LCTAB Cardio: normal rate, normal rhythm, no murmur appreciated GI: abdomen soft, non-tender, non-distended Back: normal inspection, no rash Skin: warm, dry, normal color, no rash Neuro: alert, not altered, egg smeller 2-12 intact, motor 5/5 throughout, no pronator drift, normal finger/nose and heel/dubois b/l, normal tone Ext: no edema Psych: normal mood, normal affect, normal behavior
--- NOTE | 2018-10-29 10:01 | DI.CT_ITS ---
SYMPTOM/DIAGNOSIS: ALTERED MENTAL STATUS, HEADACHE NONCONTRAST HEAD CT: Comparison is made with 10/21/18. There is cerebral atrophy consistent with the patient's age. There are areas of decreased attenuation in the white matter consistent with small vessel ischemic disease. No acute infarct, midline shift or mass effect is identified. No intracranial hemorrhage is seen. The ventricles are intact. The basilar cisterns are patent. There is mucus retention cyst or polyp in the right maxillary sinus. Mucosal thickening is seen in the left maxillary sinus. No fluid levels are seen in the visualized paranasal sinuses. The mastoid air cells are clear. The calvarium shows no acute fracture. Bilateral craniotomies and/or [place]ie holes are visualized. IMPRESSION: No acute intracranial process. The findings were discussed with the ER on the date of the examination.
--- NOTE | 2018-10-29 10:34 | ED.GENADUL_ITS ---
Discharge Plan Disposition Patient Disposition: HOME Condition: Stable Discharge Details Chief Complaint: CVA/TIA Clinical Impression: Right arm weakness Reason For Visit: BROOKS Primary Care Provider: Timothy Rodriguez ED Provider: Oralia Granados Home Meds and New Rx's Prescriptions: New divalproex [Depakote] 250 mg tablet,delayed release (DR/EC) 250 mg PO BID Qty: 14 RF: 0 Continued Centrum Ultra Men's 8 mg iron- 200 mcg-600 mcg tablet 1 tab PO DAILY RF: 0 ranitidine HCl 150 mg capsule 150 mg PO BID Qty: 180 RF: 3 simvastatin 20 MG tablet 20 mg PO HS Qty: 90 RF: 3 acetaminophen 500 MG tablet 500 mg PO BID RF: 0 sertraline 50 MG tablet 50 mg PO DAILY Qty: 90 RF: 3 benzonatate [Tessalon Perles] 100 mg capsule 100 mg PO TID PRN (Reason: cough) Qty: 10 RF: 0 loratadine 10 mg Capsule 1 dose PO DAILY RF: 0 levetiracetam [Keppra] 500 mg tablet 1,500 mg PO BID 30 Days Qty: 180 RF: 0 No Action divalproex [Depakote] 250 mg tablet,delayed release (DR/EC) 250 mg PO BID Qty: 14 RF: 0 divalproex [Depakote] 500 mg tablet,delayed release (DR/EC) 500 mg PO BID Qty: 60 RF: 2 Discharge Instructions Instructions: Valproic Acid (By mouth) Additional Instructions: Please return immediately to the emergency department if you develop any new or worsening symptoms or if you become otherwise concerned. It is extremely important that you make an appointment to be seen within the next week by your primary care doctor and in the next few weeks by your neurologist. After 1 week you will need your Depakote level increased, and you will be stopping your Keppra. You will need your primary care doctor to adjust these medications for you. Referrals: Timothy Rodriguez [Primary Care Provider] - Discharge Data Discharge Date/Time-TO BE ENTERED AT DEPARTURE: 10/29/18 13:42 Medical Decision Making Bryan Brown is an 78 y/o man with cancer, recent SAH presenting to the emergency department with right arm weakness and tingling which has been recurring over the past few months since SAH, negative MRI for same 10/12. Pt is well and non-toxic appearing. Benign neuro exam without focal deficit. Pt had CT upon arrival in the ED, neg for acute process. At this time given prior w/u for same, doubt stuttering TIA or other emergent vascular etiology. Suspect migraine vs seizure. Concern for possible metabolic/lyte derangement, possible persistent PNA. Plan for EKG, CXR, screening labs, discussion with PCP/neurology. I spoke with Dr. Rodriguez, who relayed that he had communicated with Pt's neurologist yesterday re: plan for recurrent right arm weakness. Plan for adding depakote, continue keppra, then after one week increase depakote and d/c keppra. /Michael will see Pt in f/u as outpt. I discussed Pt presentation and results with Pt's neurologist, Dr. Griffiths of [facility] [place], who recommended no further emergent intervention, add depakote 250 BID, continue keppra for one week as already discussed with Dr. Rodriguez. Pt continues to be asymptomatic. I had a lengthy discussion with Pt and family re: my discussions with PCP and neurology, medication plan, RTED precautions, and importance of outpt f/u with PCP and neurology. They verbalize understanding of the plan and are amenable. Medical Records Medical records reviewed: Yes I reviewed the patient's medical records. Imaging Data Radiologic Study: Attestation: I personally reviewed and interpreted this imaging study as follows: Radiologist's impression: PORTABLE AP CHEST: Comparison is made with 10/21/18. The heart is at the upper limits of normal in size. There is tortuosity of the thoracic aorta. The pulmonary vasculature appears stable. The tip of the central venous catheter is in good position in the superior vena cava. The lungs show no infiltrates, effusions or pneumothoraces. IMPRESSION: No acute pulmonary process. NONCONTRAST HEAD CT: Comparison is made with 10/21/18. There is cerebral atrophy consistent with the patient's age. There are areas of decreased attenuation in the white matter consistent with small vessel ischemic disease. No acute infarct, midline shift or mass effect is identified. No intracranial hemorrhage is seen. The ventricles are intact. The basilar cisterns are patent. There is mucus retention cyst or polyp in the right maxillary sinus. Mucosal thickening is seen in the left maxillary sinus. No fluid levels are seen in the visualized paranasal sinuses. The mastoid air cells are clear. The calvarium shows no acute fracture. Bilateral craniotomies and/or [place] holes are visualized. IMPRESSION: No acute intracranial process. Lab Data Lab results reviewed: Yes I reviewed the patient's lab results. Laboratory Tests Range/Units 10/29/18 10/29/18 10/29/18 11:20 11:20 11:20 WBC (4.4-10.8) k/cumm 6.53 RBC (4.50-6.00) m/cumm 4.24 L Hgb (13.5-17.5) g/dL 12.6 L Hct (40.0-50.0) % 38.5 L MCV (80-95) fL 90.8 MCH (27.0-33.0) pg 29.7 MCHC (32.0-36.0) g/dL 32.7 RDW (11.8-14.1) % 12.8 Plt Count (130-400) x1000/uL 187 MPV (8.0-11.0) fL 9.4 Immature Gran % 0.2 Neutrophils % 64.9 Lymphocytes % 21.7 Monocytes % 10.4 Eosinophils % 2.3 Basophils % 0.5 Absolute Neutrophils (1.2-6.7) k/cumm 4.24 Absolute Lymphocytes (1.2-3.4) k/cumm 1.42 Absolute Monocytes (0.11-0.7) k/cumm 0.68 Absolute Eosinophils (0.0-0.7) k/cumm 0.15 Absolute Basophils (0.0-0.2) k/cumm 0.03 PT (9.3-11.0) sec 9.4 INR (0.9-1.1) 0.9 Sodium (136-145) mmol/L 139 Potassium (3.5-5.1) mmol/L 4.0 Chloride (98-107) mmol/L 103 Carbon Dioxide (21.0-32.0) mmol/L 30.8 Anion Gap (3-11) mmol/L 5.2 BUN (7-18) mg/dL 16 Creatinine (0.70-1.30) mg/dL 0.97 Estimated GFR/1.73 m2 (mL/min/1.73m2) >= 60.00 Glucose (70-100) mg/dL 99 Lactate (0.6-1.4) mmol/L Calcium (8.5-10.1) mg/dL 8.8 Total Bilirubin (0.2-1.0) mg/dL 0.4 AST (15-37) U/L 100 H ALT (12-78) U/L 29 Alkaline Phosphatase (46-116) U/L 65 Troponin I (0.00-0.06) ng/mL < 0.02 Total Protein (6.4-8.2) g/dL 7.5 Albumin (3.4-5.0) g/dL 3.4 Range/Units 10/29/18 11:20 WBC (4.4-10.8) k/cumm RBC (4.50-6.00) m/cumm Hgb (13.5-17.5) g/dL Hct (40.0-50.0) % MCV (80-95) fL MCH (27.0-33.0) pg MCHC (32.0-36.0) g/dL RDW (11.8-14.1) % Plt Count (130-400) x1000/uL MPV (8.0-11.0) fL Immature Gran % Neutrophils % Lymphocytes % Monocytes % Eosinophils % Basophils % Absolute Neutrophils (1.2-6.7) k/cumm Absolute Lymphocytes (1.2-3.4) k/cumm Absolute Monocytes (0.11-0.7) k/cumm Absolute Eosinophils (0.0-0.7) k/cumm Absolute Basophils (0.0-0.2) k/cumm PT (9.3-11.0) sec INR (0.9-1.1) Sodium (136-145) mmol/L Potassium (3.5-5.1) mmol/L Chloride (98-107) mmol/L Carbon Dioxide (21.0-32.0) mmol/L Anion Gap (3-11) mmol/L BUN (7-18) mg/dL Creatinine (0.70-1.30) mg/dL Estimated GFR/1.73 m2 (mL/min/1.73m2) Glucose (70-100) mg/dL Lactate (0.6-1.4) mmol/L 1.2 Calcium (8.5-10.1) mg/dL Total Bilirubin (0.2-1.0) mg/dL AST (15-37) U/L ALT (12-78) U/L Alkaline Phosphatase (46-116) U/L Troponin I (0.00-0.06) ng/mL Total Protein (6.4-8.2) g/dL Albumin (3.4-5.0) g/dL ECG Data Attestation: I personally reviewed and interpreted this ECG (s) as follows: Interpretation: EKG shows sinus rhythm at 79 with frequent ectopic beats, incomplete right bundle branch block/left anterior fascicular block present on prior, no acute ischemic changes, nondiagnostic EKG HPI General Mode of arrival: EMS . Date/Time Provider Initiated Documentation: 10/29/18 09:53 . Limitations to Documentation: no limitations . Information obtained by: patient, family, RN notes reviewed and old records reviewed . HPI Narrative: Bryan Brown is an 78-year-old man with history of recent subarachnoid hemorrhage, atrial fibrillation, COPD, HTN, HLD, PE presenting to the emergency department with right arm numbness and weakness. Patient is accompanied by his and daughter who also provide history. They report that patient had a subarachnoid hemorrhage just before , was seen here and then transferred to [facility]. He stated department for 1 week and then was sent to the [facility] for 2 weeks. He has been at home since that time. For the past 2 weeks or so patient has been having intermittent headaches that are sometimes accompanied by numbness in his right arm and weakness in his right arm. He has also had mild numbness in his left arm occasionally during these episodes. He has not had any weakness in his left arm. Episodes seem to occur typically in the early mornings. Family reports that patient was seen here just prior to [place] for this, and had an MRI performed at that time. Episodes have been occurring essentially every morning. Patient's reports that patient had another episode this morning at 4 AM. Headache and right arm numbness/weakness resolved at approximately 5:30 AM. Patient then had another episode approximately an hour later. Patient reports that all symptoms are resolved at this time. He has no pain, no numbness/tingling, and no weakness of the extremities. He was recently seen and treated for pneumonia and continues to have cough. He does not have shortness of breath. He denies nausea/vomiting/diarrhea, fevers. Has been eating and drinking as usual. Related Data Home Medications Medication Instructions Recorded Confirmed simvastatin 20 mg PO HS #90 tab-cap 01/18/18 11/03/18 acetaminophen 500 mg PO BID tab-cap 02/09/18 11/03/18 sertraline 50 mg PO DAILY #90 tab-cap 02/09/18 11/03/18 ranitidine 150 mg capsule 150 mg PO BID #180 cap 08/10/18 11/03/18 loratadine 1 dose PO DAILY 09/14/18 11/03/18 multivit,Ca,min-iron 8 mg-folic 1 tab PO DAILY tab 10/12/18 11/03/18 acid 200 mcg-lycopene 600 mcg tablet levetiracetam [Keppra] 1,500 mg PO BID 30 Days #180 tab 10/15/18 11/03/18 benzonatate 100 mg capsule 100 mg PO TID PRN #10 cap 10/20/18 11/03/18 divalproex [Depakote] 250 mg PO BID #14 tab 10/29/18 11/03/18 divalproex 250 mg tablet,delayed 250 mg PO BID #14 tab 11/03/18 11/03/18 release divalproex 500 mg tablet,delayed 500 mg PO BID #60 tab 11/03/18 11/03/18 release Previous Rx's Medication Instructions Recorded simvastatin 20 mg PO HS #90 tab-cap 01/18/18 sertraline 50 mg PO DAILY #90 tab-cap 02/09/18 ranitidine 150 mg capsule 150 mg PO BID #180 cap 08/10/18 levetiracetam [Keppra] 1,500 mg PO BID 30 Days #180 tab 10/15/18 benzonatate 100 mg capsule 100 mg PO TID PRN #10 cap 10/20/18 divalproex [Depakote] 250 mg PO BID #14 tab 10/29/18 divalproex 250 mg tablet,delayed 250 mg PO BID #14 tab 11/03/18 release divalproex 500 mg tablet,delayed 500 mg PO BID #60 tab 11/03/18 release Allergies Allergy/AdvReac Type Severity Reaction Status Date / Time pantoprazole sodium Allergy Severe THROAT Unverified 11/03/18 08:40 [From Protonix] SWELLING/CHILLS General ANY: 2 Review of Systems Review of Systems Constitutional: denies fevers Eyes: denies eye pain ENT: denies facial pain, dental pain, sore throat Cardiovascular: denies chest pain, edema Respiratory: denies SOB, reports cough GI: denies abdominal pain, vomiting, diarrhea : denies flank pain MSK: denies back pain, neck pain, arthralgias, myalgias Skin: denies rash Neuro: denies headaches, lightheadedness, reports RUE weakness, tingling, LUE tingling PFSH Medical History Seizures, post-traumatic (Acute) BPH (benign prostatic hyperplasia) COPD (chronic obstructive pulmonary disease) GERD (gastroesophageal reflux disease) History of colon cancer Intention tremor PE (pulmonary thromboembolism) Paroxysmal atrial fibrillation Surgical History Colonoscopy - MAC (11/07/16) Colonoscopy - MAC (11/27/17) EGD - MAC (11/07/16) Fracture, Closed Treatment Hemicolectomy Kidney Stone Extraction Transurethral prostatectomy Social History Smoking/Tobacco Use Status: Former Tobacco Use alcohol intake: current alcohol intake frequency: a few times a week substance use type: does not use seatbelt use: always Exam Narrative Exam Narrative: Constitutional: well and [id number], pleasant, conversing normally HENT: head atraumatic, normocephalic normal inspection, mucous membranes moist Eyes: conjunctiva normal, sclera normal, right pupil 4mm and irregular (family reports as 2/2 trauma in the past, unchanged), EOMI, left pupil RRLA 3mm Neck: no stridor, normal ROM, trachea midline Chest: normal inspection Resp: normal work of breathing, LCTAB Cardio: normal rate, normal rhythm, no murmur appreciated GI: abdomen soft, non-tender, non-distended Back: normal inspection, no rash Skin: warm, dry, normal color, no rash Neuro: alert, not altered, 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
--- NOTE | 2018-10-29 10:49 | DI.RAD_ITS ---
SYMPTOM/DIAGNOSIS: TIA PORTABLE AP CHEST: Comparison is made with 10/21/18. The heart is at the upper limits of normal in size. There is tortuosity of the thoracic aorta. The pulmonary vasculature appears stable. The tip of the central venous catheter is in good position in the superior vena cava. The lungs show no infiltrates, effusions or pneumothoraces. IMPRESSION: No acute pulmonary process.
[2018-10-29 11:31] LABS: Abs Immature Grans 0.01 k/cumm (0.0-0.09); Absolute Basophil Count 0.03 k/cumm (0.0-0.2); Absolute Eosinophil Count 0.15 k/cumm (0.0-0.7); Absolute Lymphocyte Count 1.42 k/cumm (1.2-3.4); Absolute Monocyte Count 0.68 k/cumm (0.11-0.7); Absolute Neutrophil Count 4.24 k/cumm (1.2-6.7); Basophils % 0.5; Eosinophils % 2.3; HCT 38.5 % (40.0-50.0); HGB 12.6 g/dL (13.5-17.5); Immature Grans % 0.2; Lymphocytes % 21.7; Mean Corp. HGB Concentration 32.7 g/dL (32.0-36.0); Mean Corpuscular Hemoglobin 29.7 pg (27.0-33.0); Mean Corpuscular Volume 90.8 fL (80-95); Mean Platelet Volume 9.4 fL (8.0-11.0); Monocytes % 10.4; Neutrophils % 64.9; Platelet Count 187 x1000/uL (130-400); RBC 4.24 m/cumm (4.50-6.00); RBC Distribution Width 12.8 % (11.8-14.1); White Blood Cell Count 6.53 k/cumm (4.4-10.8)
[2018-10-29 11:32] LABS: Lactate-non-spesis 1.2 mmol/L (0.6-1.4)
[2018-10-29 11:45] LABS: INR 0.9 (0.9-1.1); Prothrombin Time 9.4 sec (9.3-11.0)
[2018-10-29 11:55] LABS: ALT 29 U/L (12-78); AST 100 U/L (15-37); Albumin 3.4 g/dL (3.4-5.0); Alkaline Phosphatase 65 U/L (46-116); Anion Gap 5.2 mmol/L (3-11); BUN 16 mg/dL (7-18); Bilirubin, Total 0.4 mg/dL (0.2-1.0); CO2 30.8 mmol/L (21.0-32.0); CREATININE 0.97 mg/dL (0.70-1.30); Calcium 8.8 mg/dL (8.5-10.1); Chloride 103 mmol/L (98-107); Glucose 99 mg/dL (70-100); Sodium 139 mmol/L (136-145); Total Protein 7.5 g/dL (6.4-8.2)
[2018-10-29 12:03] LABS: Troponin I < 0.02 ng/mL (0.00-0.06)
--- NOTE | 2018-10-29 13:54 | PDOC.ERCMPRO ---
Care Management Progress Note 10/29-Met with Bryan, Joe and daughter Bernie. states that Bryan hasn't felt well the past couple of days and appeared to be weaker. Joe is Bryan's caregiver. He does receive home zaida nursing once a week. He has a walker, shower chair, and weights that he uses on his legs for exercising. Everything is on one floor so Joe states that is pretty easy. Joe does all the cooking, cleaning, bill paying, and assisting Bryan with baths and dressing. Daughter Bernie is concerned about her mom doing all the extra work and stress. Discussed increasing home health service to request an aide to assist with bathing and PT for strengthening. Joe declined both and stated she felt like she was managing everything at home ok. Daughter Bernie did voice concerns/worry about her mom but Joe was adamant that they did not need any other services at home. Joe and Bernie have this CM's contact information if further assistance is needed once they are home.
== END 2018-10-29 13:42 | disposition home or self-care (01) ==
PROVIDERS: Emergency Provider Student in an Organized Health Care Education/Training Program; PCP Family Medicine
DX: I69.331 Monoplegia of upper limb following cerebral infarction affecting right dominant side (principal); I45.10 Unspecified right bundle-branch block; I44.4 Left anterior fascicular block; I10 Essential (primary) hypertension; J44.9 Chronic obstructive pulmonary disease, unspecified
CPT/HCPCS: 36415; 80053; 93005; 99285; 70450; 71045; 83605; 84484; 85025; 85610; 93010

== ENCOUNTER 2018-11-08 10:37 | Outpatient (CLI) | payer MEDICARE, SELFPAY | END 2018-11-08 10:57 | PROVIDERS: PCP Family Medicine; Visit Provider Internal Medicine Interventional Cardiology | DX: I48.91 Unspecified atrial fibrillation (principal); J44.9 Chronic obstructive pulmonary disease, unspecified; Z87.891 Personal history of nicotine dependence; I10 Essential (primary) hypertension | CPT/HCPCS: 99204; 99215; 93005; 93010 ==

== ENCOUNTER 2018-11-10 02:20 | Outpatient (CLI) | payer MEDICARE, SELFPAY ==
--- NOTE | 2018-12-06 07:04 | ZIOP_ITS ---
ZIO PATCH EVENT RECORDER REPORT DATE OF DICTATION December 04, 2018 INDICATION Palpitations. PRESCRIBER Steven Azevedo M.D. ENROLLMENT 11/10/2018 until 11/24/2018 FINDINGS 1. Baseline sinus rhythm, 38-122 beats per minute, average 73 beats per minute. 2. Frequent PAC, 9.9%, frequent SVT runs, total 571 events, fastest 7 beats at 197 beats per minute, longest 14 seconds at 123 beats per minute. No AF. 3. Frequent PVC, 8%, occasional couplets and triplets, no VT. 4. No pauses. 5. 5 trigger events, all with sinus rhythm, frequent PAC/PVC, 4 out of this with brief SVT tuns. 6. SYMPTOMS: Test x1, chest pain/pressure x2, fluttering/racing, chest pain/pressure x1 and lightheaded x1, all with sinus rhythm, frequent PAC/PVC, 3 events with brief SVT. Taty Bright M.D. RICH/ana maria T - 12/06/2018
== END 2018-11-10 02:40 ==
PROVIDERS: PCP Family Medicine; Visit Provider Internal Medicine Interventional Cardiology
DX: R00.2 Palpitations (principal); I49.1 Atrial premature depolarization; I49.3 Ventricular premature depolarization
CPT/HCPCS: 93225

== ENCOUNTER 2018-12-04 08:40 | Outpatient (CLI) | payer MEDICARE, SELFPAY | END 2018-12-04 09:00 | PROVIDERS: PCP Family Medicine; Referring Provider Family Medicine; Visit Provider Internal Medicine Cardiovascular Disease | DX: R00.2 Palpitations (principal); I49.1 Atrial premature depolarization; I49.3 Ventricular premature depolarization | CPT/HCPCS: 0298T ==

== ENCOUNTER 2018-12-08 00:12 | Outpatient (CLI) | payer MEDICARE, SELFPAY ==
[2018-12-08] MEDS: Omnipaque 350 MG/ML 50 ML BTL PO (09:20)
[2018-12-08] MEDS: Breeza Beverage 473 ML BTL PO (09:22)
--- NOTE | 2018-12-08 10:00 | DI.CT_ITS ---
SYMPTOMS/DIAGNOSIS: ? NODES IN THE PAST, COMPARE AND EVALUATE, C18.2 CT OF THE CHEST, ABDOMEN AND PELVIS: The study was carried out with an intravenous injection of 100 cc's of Omnipaque 350 and oral ingestion of dilute barium and is compared with the prior study of 08/20/18. CHEST CT: Again noted is an old healed granuloma in the right upper lobe. There has been no interval change. No other pulmonary nodule or mass is identified. Again noted is basilar scarring and dependent atelectasis. There is no evidence of hilar or mediastinal, axillary or supraclavicular adenopathy. The heart is not enlarged. There is no evidence of a pericardial effusion. There is no evidence of an aortic aneurysm. There is nothing on the examination to suggest pulmonary embolic disease. ABDOMINAL AND PELVIS CT: The liver is unremarkable. The gallbladder is intact. There are no gallstones or ductal dilatation. The pancreas is well maintained. The spleen is intact. The adrenals are normal. Small bilateral cortical renal cysts are demonstrated and a peripelvic left renal cyst is again noted measuring up to 21 mm. When compared with the prior exam, a retrocaval node measures 2.5 cm in maximal diameter unchanged when compared with the prior study. There are some small periaortic lymph nodes which are also unchanged. There is no evidence of an intra-abdominal or pelvic mass. Again noted is an abdominal aortic aneurysm measuring up to 3.5 cm in diameter. The iliac arteries are unchanged at a maximal transverse diameter of 17 mm. There is no evidence of bowel obstruction. No localized bowel abnormality is apparent. There is diverticulosis without evidence of diverticulitis. The bladder is intact. The reproductive organs as visualized are intact. There are small bilateral fat containing inguinal hernias. There are no findings to suggest bony metastases. SUMMARY: No appreciable interval change when compared with the prior examination of 08/20/18. A retrocaval lymph node and small periaortic retroperitoneal lymph nodes also appear stable as noted above. If there is any further question regarding the status of this patient, then correlation with a PET scan could be considered.
[2018-12-08] MEDS: Omnipaque 350 MG/ML 100 ML BTL IJ (10:46)
== END 2018-12-08 00:32 ==
PROVIDERS: PCP Family Medicine; Visit Provider Internal Medicine Hematology & Oncology
DX: C18.2 Malignant neoplasm of ascending colon (principal); J84.10 Pulmonary fibrosis, unspecified; R59.0 Localized enlarged lymph nodes; K57.30 Diverticulosis of large intestine without perforation or abscess without bleeding
CPT/HCPCS: 36591; 74177; 80053; 71260; 82378; 85025; J3490; Q9967

== ENCOUNTER 2018-12-08 01:50 | Outpatient (RCR) | payer MEDICARE, SELFPAY ==
[2018-12-08] MEDS: Normal Saline Flush 10 ML SYR IVP (09:00)
[2018-12-08] MEDS: Heparin 500 UNITS/5 ML SYRINGE IV (09:01)
[2018-12-08 09:12] LABS: Abs Immature Grans 0.01 k/cumm (0.0-0.09); Absolute Basophil Count 0.04 k/cumm (0.0-0.2); Absolute Eosinophil Count 0.16 k/cumm (0.0-0.7); Absolute Lymphocyte Count 1.88 k/cumm (1.2-3.4); Absolute Monocyte Count 0.64 k/cumm (0.11-0.7); Absolute Neutrophil Count 4.05 k/cumm (1.2-6.7); Basophils % 0.6; Eosinophils % 2.4; HCT 37.7 % (40.0-50.0); HGB 12.2 g/dL (13.5-17.5); Immature Grans % 0.1; Lymphocytes % 27.7; Mean Corp. HGB Concentration 32.4 g/dL (32.0-36.0); Mean Corpuscular Hemoglobin 29.5 pg (27.0-33.0); Mean Corpuscular Volume 91.3 fL (80-95); Mean Platelet Volume 10.2 fL (8.0-11.0); Monocytes % 9.4; Neutrophils % 59.8; Platelet Count 132 x1000/uL (130-400); RBC 4.13 m/cumm (4.50-6.00); RBC Distribution Width 13.5 % (11.8-14.1); White Blood Cell Count 6.78 k/cumm (4.4-10.8)
[2018-12-08 09:24] LABS: ALT 19 U/L (12-78); AST 121 U/L (15-37); Albumin 3.4 g/dL (3.4-5.0); Alkaline Phosphatase 50 U/L (46-116); Anion Gap 5.6 mmol/L (3-11); BUN 20 mg/dL (7-18); Bilirubin, Total 0.5 mg/dL (0.2-1.0); CO2 33.4 mmol/L (21.0-32.0); CREATININE 1.04 mg/dL (0.70-1.30); Chloride 102 mmol/L (98-107); Glucose 109 mg/dL (70-100); Potassium 4.7 mmol/L (3.5-5.1); Sodium 141 mmol/L (136-145); Total Protein 7.7 g/dL (6.4-8.2)
[2018-12-09 09:57] LABS: CEA <0.5 ng/ml
== END 2018-12-23 23:59 | disposition home or self-care (01) ==
LOC: INF 01:50
PROVIDERS: PCP Family Medicine; Visit Provider Internal Medicine Hematology & Oncology
DX: C18.2 Malignant neoplasm of ascending colon (principal); Z45.2 Encounter for adjustment and management of vascular access device
CPT/HCPCS: 36591; 80053; 82378; 85025

== ENCOUNTER 2018-12-13 10:12 | Outpatient (CLI) | payer MEDICARE, SELFPAY ==
--- NOTE | 2018-12-20 17:08 | HOLTER_ITS ---
HOLTER MONITOR REPORT DATE OF DICTATION: December 20, 2018 48-HOUR STUDY Baseline rhythm sinus. Very frequent single PAC. 153 bursts of SVT noted, longest 7-beat duration, fastest 171 bpm. No atr ial fibrillation is conclusively demonstrated. Frequent single PVC, 890 total, 0.5% of total beat. Two couplet. No VT. No bradycardia. No symptoms. Average heart rate 67 bpm, range 55-104 bpm.
== END 2018-12-13 10:32 ==
PROVIDERS: PCP Family Medicine; Visit Provider Internal Medicine Interventional Cardiology
DX: I48.91 Unspecified atrial fibrillation (principal); I10 Essential (primary) hypertension; J44.9 Chronic obstructive pulmonary disease, unspecified
CPT/HCPCS: 93005; 93010; 99213

== ENCOUNTER 2018-12-16 01:08 | Outpatient (CLI) | payer MEDICARE, SELFPAY ==
--- NOTE | 2018-12-22 18:32 | HOLTER_ITS ---
Date of dictation: December 22, 2018 Study Indication: Palpitations. Requesting Provider: Steven Azevedo M.D. Findings: The patient was monitored for 2 days and 20 minutes. The baseline rhythm was sinus rhythm with PACs. Average heart rate 67 bpm, range 55-104 bpm. There was rare ventricular ectopy, 0.5% PVCs. There was no ventricular tachycardia. There were very frequent PACs, 21.9%. There were 153 episodes of supraventricular tachycardia, the l ongest 7 beats, the fastest 171 bpm. There were no pauses greater than 3 seconds. There was no high-degree heart block. There was one patient event that did not correlate with arrhythmias. Final Interpretation: Very frequent PACs and bursts of supraventricular tachycardia, asymptomatic.
== END 2018-12-16 01:28 ==
PROVIDERS: PCP Family Medicine; Visit Provider Internal Medicine Interventional Cardiology
DX: R00.2 Palpitations (principal); I49.1 Atrial premature depolarization; I49.3 Ventricular premature depolarization; I47.1 Supraventricular tachycardia
CPT/HCPCS: 93225

== ENCOUNTER 2018-12-22 11:54 | Outpatient (RCR) | payer SELFPAY | END 2018-12-23 23:59 | disposition home or self-care (01) | LOC: CR 11:54 | PROVIDERS: PCP Family Medicine; Visit Provider Family Medicine | DX: Z51.89 Encounter for other specified aftercare (principal) ==

== ENCOUNTER 2019-01-10 11:12 | Outpatient (CLI) | payer MEDICARE, SELFPAY | END 2019-01-10 11:32 | PROVIDERS: PCP Family Medicine; Visit Provider Internal Medicine Interventional Cardiology | DX: I48.91 Unspecified atrial fibrillation (principal); R07.9 Chest pain, unspecified; I10 Essential (primary) hypertension; I47.1 Supraventricular tachycardia | CPT/HCPCS: 99214; 93005; 93010 ==

== ENCOUNTER → 2019-01-13 12:48 | Outpatient (BNVA) | payer MEDICARE, SELFPAY | PROVIDERS: PCP Family Medicine; Visit Provider Internal Medicine Cardiovascular Disease | DX: I48.0 Paroxysmal atrial fibrillation (principal); I26.99 Other pulmonary embolism without acute cor pulmonale; Z86.79 Personal history of other diseases of the circulatory system; J44.9 Chronic obstructive pulmonary disease, unspecified; Z79.01 Long term (current) use of anticoagulants; Z87.891 Personal history of nicotine dependence | CPT/HCPCS: 99205; 99215 ==

== ENCOUNTER 2019-03-25 01:44 | Outpatient (RCR) | payer MEDICARE, SELFPAY ==
[2019-03-25 12:00] LABS: Abs Immature Grans 0.01 k/cumm (0.0-0.09); Absolute Basophil Count 0.02 k/cumm (0.0-0.2); Absolute Eosinophil Count 0.18 k/cumm (0.0-0.7); Absolute Monocyte Count 0.83 k/cumm (0.11-0.7); Absolute Neutrophil Count 3.98 k/cumm (1.2-6.7); Basophils % 0.3; Eosinophils % 2.4; HCT 35.9 % (40.0-50.0); HGB 11.8 g/dL (13.5-17.5); Immature Grans % 0.1; Lymphocytes % 33.2; Mean Corp. HGB Concentration 32.9 g/dL (32.0-36.0); Mean Corpuscular Hemoglobin 30.7 pg (27.0-33.0); Mean Corpuscular Volume 93.5 fL (80-95); Mean Platelet Volume 10.3 fL (8.0-11.0); Platelet Count 145 x1000/uL (130-400); RBC 3.84 m/cumm (4.50-6.00); RBC Distribution Width 12.6 % (11.8-14.1); White Blood Cell Count 7.52 k/cumm (4.4-10.8)
[2019-03-25 12:19] LABS: ALT 18 U/L (12-78); AST 63 U/L (15-37); Albumin 3.3 g/dL (3.4-5.0); Alkaline Phosphatase 56 U/L (46-116); Anion Gap 9.8 mmol/L (3-11); BUN 20 mg/dL (7-18); Bilirubin, Total 0.4 mg/dL (0.2-1.0); CO2 28.2 mmol/L (21.0-32.0); CREATININE 0.95 mg/dL (0.70-1.30); Calcium 8.7 mg/dL (8.5-10.1); Chloride 101 mmol/L (98-107); Glucose 98 mg/dL (70-100); Potassium 4.1 mmol/L (3.5-5.1); Sodium 139 mmol/L (136-145); Total Protein 7.2 g/dL (6.4-8.2)
[2019-03-25] MEDS: Heparin 500 UNITS/5 ML SYRINGE IV (14:35)
[2019-03-25] MEDS: Normal Saline Flush 10 ML SYR IVP (14:35)
== END 2019-03-25 23:59 | disposition home or self-care (01) ==
LOC: INF 01:44
PROVIDERS: PCP Family Medicine; Visit Provider Internal Medicine Hematology & Oncology
DX: C18.2 Malignant neoplasm of ascending colon (principal); Z45.2 Encounter for adjustment and management of vascular access device
CPT/HCPCS: 36591; 80053; 82378; 85025

== ENCOUNTER 2019-04-15 08:00 | Outpatient (CLI) | payer MEDICARE, SELFPAY | END 2019-04-15 08:20 | PROVIDERS: PCP Family Medicine; Visit Provider Nurse Practitioner Family | DX: Z45.09 Encounter for adjustment and management of other cardiac device (principal); I48.0 Paroxysmal atrial fibrillation ==

== ENCOUNTER 2019-04-24 17:20 | Emergency (ER) | payer MEDICARE, SELFPAY ==
[2019-04-24 17:27] VITALS: BP 128/70; PULSE 63; RESP 18; TEMP 36.7; O2SAT 98
--- NOTE | 2019-04-24 17:43 | ED.GENADUL_ITS ---
Discharge Plan Disposition Patient Disposition: HOME Condition: Improving Discharge Details Chief Complaint: Urinary Clinical Impression: Mild dehydration Primary Care Provider: Timothy Rodriguez ED Provider: Quique Busch Home Meds and New Rx's Prescriptions: Continued Centrum Ultra Men's 8 mg iron- 200 mcg-600 mcg tablet 1 tab PO DAILY RF: 0 meclizine 25 mg tablet 25 mg PO DAILY PRNRF: 0 ranitidine HCl 150 mg capsule 150 mg PO BID Qty: 180 RF: 3 sertraline 50 mg tablet 50 mg PO DAILY Qty: 90 RF: 3 simvastatin 20 mg tablet 20 mg PO HS Qty: 90 RF: 3 acetaminophen 500 MG tablet 500 mg PO BID RF: 0 divalproex [Depakote] 500 mg tablet,delayed release (DR/EC) 500 mg PO BID Qty: 60 RF: 2 benzonatate [Tessalon Perles] 100 mg capsule 100 mg PO HS PRN (Reason: cough) Qty: 20 RF: 0 testosterone [AndroGel] 1.62 % (20.25 mg/1.25 gram) Gel In Packet RF: 0 Discharge Instructions Instructions: Dehydration (ED) Additional Instructions: Your laboratories showed mild dehydration. You do not have evidence of a urinary tract infection. Home to rest this evening. Continue small, frequent sips of fluids. Follow-up with Dr. Rodriguez for routine care. Continue all regular medications Return to the emergency department for any acute concern Medical Decision Making 78-year-old male presents from home with his family. He had decreased urine output today. He has had prostatic hypertrophy in the past requiring Brown catheter placement. At home today due to decreased urinary output a straight cath was performed with return of urine but in no great amount. Patient is not had a fever. He arrives with normal vital signs and a reassuring exam. Screening laboratories obtained as well as urinalysis. Patient's diagnostic studies reveal mild dehydration. His white count is 5, hem atocrit 33, platelets 109. Sodium 140, potassium 3.8, chloride 105, bicarb 27, BUN 23, creatinine 0.9. Urinalysis shows specific gravity 1.015. Negative leuk esterase and negative nitrites. Patient remains without distress. Discussed with family home management. Stable for discharge to home at this time with reassuring exam and findings. Lab Data Lab results reviewed: Yes I reviewed the patient's lab results. Laboratory Results - last 24 hr 04/24/19 04/24/19 04/24/19 17:59 17:59 18:40 WBC 5.59 RBC 3.62 L Hgb 11.1 L Hct 33.7 L MCV 93.1 MCH 30.7 MCHC 32.9 RDW 12.7 Plt Count 109 L MPV 9.6 Immature Gran % 0.2 Neutrophils % 49.3 Lymphocytes % 35.8 Monocytes % 11.8 Eosinophils % 2.5 Basophils % 0.4 Absolute Neutrophils 2.76 Absolute Lymphocytes 2.00 Absolute Monocytes 0.66 Absolute Eosinophils 0.14 Absolute Basophils 0.02 Sodium 140 Potassium 3.8 Chloride 105 Carbon Dioxide 27.1 Anion Gap 7.9 BUN 23 H Creatinine 0.94 Estimated GFR/1.73 m2 >= 60.00 Glucose 102 H Calcium 8.6 Urine Color Yellow Urine Clarity Clear Urine pH 7.0 Ur Specific [place] 1.015 Urine Protein Negative Urine Ketones Negative Urine Blood Moderate H Urine Nitrite Negative Urine Bilirubin Negative Urine Urobilinogen 0.2 Ur Leukocyte Esterase Negative Urine Glucose Negative HPI General Mode of arrival: ambulatory . Date/Time Provider Initiated Documentation: 04/24/19 17:21 . Limitations to Documentation: no limitations . Information obtained by: patient . History of Present Illness 78 year old M presents to the emergency department with the chief complaint of Decreased urine output, described as similar to prior episodes, and is localized to the pelvis. Patient started experiencing this minute(s) and it has been other (Improved). No relieving factors improve symptom(s), No exacerbating factors reported . Patient notes denies fever/chills, loss of appetite and nausea/vomiting. Patient did receive the following treatments prior to arrival, other (Tylenol for mild back pain) Related Data Home Medications Medication Instructions Recorded Confirmed acetaminophen 500 mg PO BID tab-cap 02/09/18 04/24/19 ranitidine 150 mg capsule 150 mg PO BID #180 cap 08/10/18 04/24/19 multivit,Ca,min-iron 8 mg-folic 1 tab PO DAILY tab 10/12/18 04/24/19 acid 200 mcg-lycopene 600 mcg tablet divalproex 500 mg tablet,delayed 500 mg PO BID #60 tab 11/10/18 04/24/19 release meclizine 25 mg tablet 25 mg PO DAILY PRN 01/10/19 04/24/19 sertraline 50 mg tablet 50 mg PO DAILY #90 tab-cap 02/09/19 04/24/19 simvastatin 20 mg tablet 20 mg PO HS #90 tab-cap 02/09/19 04/24/19 benzonatate 100 mg capsule 100 mg PO HS PRN #20 cap 03/02/19 04/24/19 testosterone [AndroGel] 04/24/19 Previous Rx's Medication Instructions Recorded ranitidine 150 mg capsule 150 mg PO BID #180 cap 08/10/18 divalproex 500 mg tablet,delayed 500 mg PO BID #60 tab 11/10/18 release sertraline 50 mg tablet 50 mg PO DAILY #90 tab-cap 02/09/19 simvastatin 20 mg tablet 20 mg PO HS #90 tab-cap 02/09/19 benzonatate 100 mg capsule 100 mg PO HS PRN #20 cap 03/02/19 Allergies Allergy/AdvReac Type Severity Reaction Status Date / Time pantoprazole sodium Allergy Severe THROAT Verified 04/24/19 17:31 [From Protonix] SWELLING/CHILLS General Stated Complaint: Urinary ANY: 3 Review of Systems Review of Systems 6 systems reviewed and otherwise negative [facility] Medical History Seizures, post-traumatic (Acute) BPH (benign prostatic hyperplasia) COPD (chronic obstructive pulmonary disease) GERD (gastroesophageal reflux disease) History of colon cancer Intention tremor PE (pulmonary thromboembolism) Paroxysmal atrial fibrillation Surgical History Colonoscopy - MAC (11/07/16) Colonoscopy - MAC (11/27/17) EGD - MAC (11/07/16) Fracture, Closed Treatment Hemicolectomy Kidney Stone Extraction Transurethral prostatectomy Family History Mother Personal history of malignant neoplasm Father Personal history of malignant neoplasm Heart disease Sister No problems noted. Brother No problems noted. Social History Smoking/Tobacco Use Status: Former Tobacco Use Alcohol Intake: current Alcohol Intake frequency: a few times a week Drug use: Never Substance use type: does not use What type of physical activity do you participate in: none Seatbelt use: always Do you feel safe in your relationship?: Yes Exam Narrative Exam Narrative: GEN: awake, alert, oriented 3. Pleasant, well groomed, interactive. HEAD: Normocephalic, atraumatic ENT: Mucous membranes moist, oropharynx unremarkable, External ear exam unremarkable EYES: PERRL, EOMI NECK: Full ROM, no ELIZABETH, no menigismus CHEST/RESP: Nontender, clear to auscultation bilateral, no wheeze/rhonchi/rales CARDIOVASCULAR: RRR, no murmur, rub noel. 2+ Rad pulse bilateral ABDOMEN: Soft, nontender, no mass. +Bowel sounds EXT: Full ROM, no edema, no rash Neuro: Grossly normal neurologic exam, conversant, interactive. Psych: Speech fluent, thoughts congruent, affect normal Course Vital Signs Temperature 36.7 C 04/24/19 17:27 Pulse 63 04/24/19 17:27 Respiratory Rate 18 04/24/19 17:27 Blood Pressure 128/70 04/24/19 17:27 Pulse Oximetry 98 04/24/19 17:27 Temperature 36.7 C 04/24/19 17:27 Temperature Source Temporal Artery Scan 04/24/19 17:27 Pulse 63 04/24/19 17:27 Respiratory Rate 18 04/24/19 17:27 Blood Pressure 128/70 04/24/19 17:27 Blood Pressure Position Supine 04/24/19 17:27 Pulse Oximetry 98 04/24/19 17:27 Oxygen Delivery Method Room Air 04/24/19 17:27 Oxygen Flow Rate 0 04/24/19 17:27
[2019-04-24 18:05] LABS: Abs Immature Grans 0.01 k/cumm (0.0-0.09); Absolute Basophil Count 0.02 k/cumm (0.0-0.2); Absolute Eosinophil Count 0.14 k/cumm (0.0-0.7); Absolute Monocyte Count 0.66 k/cumm (0.11-0.7); Absolute Neutrophil Count 2.76 k/cumm (1.2-6.7); Basophils % 0.4; Eosinophils % 2.5; HCT 33.7 % (40.0-50.0); HGB 11.1 g/dL (13.5-17.5); Immature Grans % 0.2; Lymphocytes % 35.8; Mean Corp. HGB Concentration 32.9 g/dL (32.0-36.0); Mean Corpuscular Hemoglobin 30.7 pg (27.0-33.0); Mean Corpuscular Volume 93.1 fL (80-95); Mean Platelet Volume 9.6 fL (8.0-11.0); Monocytes % 11.8; Neutrophils % 49.3; RBC 3.62 m/cumm (4.50-6.00); RBC Distribution Width 12.7 % (11.8-14.1); White Blood Cell Count 5.59 k/cumm (4.4-10.8)
[2019-04-24 18:12] LABS: Platelet Count 109 x1000/uL (130-400)
[2019-04-24 18:16] LABS: Anion Gap 7.9 mmol/L (3-11); BUN 23 mg/dL (7-18); CO2 27.1 mmol/L (21.0-32.0); CREATININE 0.94 mg/dL (0.70-1.30); Calcium 8.6 mg/dL (8.5-10.1); Chloride 105 mmol/L (98-107); Glucose 102 mg/dL (70-100); Potassium 3.8 mmol/L (3.5-5.1); Sodium 140 mmol/L (136-145)
[2019-04-24 18:52] LABS: Bilirubin Negative (Negative); Blood Moderate (Negative); Clarity Clear (Clear); Glucose Negative (Negative); Ketones Negative (Negative); Leukocyte Esterase Negative (Negative); Nitrite Negative (Negative); Specific Gravity 1.015 (1.005-1.025); Urobilinogen 0.2 EU/dL (Up TO 0.2)
[2019-04-24 19:04] LABS: Bacteria Negative HPF (Negative); Epithelial Cells Rare HPF (Negative); Other Cells Rare Transitional (Negative); RBC >50 (0-2); WBC 0-2 HPF (0-5)
[2019-04-24 19:05] LABS: C & S Indicated? No; Casts Negative LPF (Negative); Crystals Negative HPF (Negative); Mucus Negative (Negative)
== END 2019-04-24 19:15 | disposition home or self-care (01) ==
PROVIDERS: Emergency Provider Emergency Medicine; PCP Family Medicine
DX: E86.0 Dehydration (principal); R41.0 Disorientation, unspecified; J44.9 Chronic obstructive pulmonary disease, unspecified; Z87.891 Personal history of nicotine dependence
CPT/HCPCS: 36415; 51701; 80048; 99283; 81003; 81015; 85025

== ENCOUNTER → 2019-05-03 10:55 | Outpatient (BNVA) | payer MEDICARE, SELFPAY | PROVIDERS: PCP Family Medicine; Visit Provider Nurse Practitioner Family | DX: I60.9 Nontraumatic subarachnoid hemorrhage, unspecified (principal); I48.0 Paroxysmal atrial fibrillation; Z45.09 Encounter for adjustment and management of other cardiac device | CPT/HCPCS: 93285; 99213 ==

== ENCOUNTER → 2019-05-26 10:20 | Outpatient (BNVA) | payer MEDICARE, SELFPAY | PROVIDERS: PCP Family Medicine; Visit Provider Internal Medicine Cardiovascular Disease | DX: I60.9 Nontraumatic subarachnoid hemorrhage, unspecified (principal); Z86.79 Personal history of other diseases of the circulatory system; I10 Essential (primary) hypertension; Z45.09 Encounter for adjustment and management of other cardiac device; I26.99 Other pulmonary embolism without acute cor pulmonale; J44.9 Chronic obstructive pulmonary disease, unspecified; Z87.891 Personal history of nicotine dependence | CPT/HCPCS: 93285; 99214 ==

== ENCOUNTER 2019-06-15 00:16 | Outpatient (CLI) | payer MEDICARE, SELFPAY ==
[2019-06-15] MEDS: Omnipaque 350 MG/ML 50 ML BTL IJ (09:41)
[2019-06-15] MEDS: Omnipaque 350 MG/ML 100 ML BTL IJ (09:42)
[2019-06-15] MEDS: Breeza Beverage 473 ML BTL PO ×2 (09:50→09:51)
--- NOTE | 2019-06-15 09:59 | DI.CT_ITS ---
SYMPTOM/DIAGNOSIS: COLON CA, C18.2, F/U CHEST/ABDOMEN AND PELVIC CT: CT examination of the chest, abdomen and pelvis was performed with a bolus infusion of 100 cc's of Omnipaque 350 and ingestion of dilute barium. The examination is compared with prior CTs including 08/20/18. Patient reportedly has a history of colon carcinoma. There is a right upper lobe calcified granuloma of the lung. No other significant intrapulmonary nodule or infiltrate. There are pulmonary emboli in right middle lobe and right lower lobe segmental and subsegmental vessels. No evidence of pulmonary infarct. No saddle embolus. Thoracic aorta is unremarkable. No pleural effusion. No mediastinal or hilar adenopathy. Liver and spleen are normal in appearance. Pancreas appears intact. Gallbladder and bile ducts are CT normal. Adrenals and kidneys are unremarkable. Abdominal aorta is of normal diameter in the suprarenal portion and there is a 3.5 cm. in diameter infrarenal abdominal aortic aneurysm. Retrocaval node again noted measuring 14 mm. in diameter as compared to 16 mm. in diameter on the previous examination of 07/2018. There is a new portal node measuring about 24 mm. in diameter suspicious for metastatic disease. No additional new retroperitoneal or abdominal adenopathy. No bowel obstruction. No focal bowel lesion seen. No significant abdominal wall hernia. No bony lesion identified on scanning of the chest, abdomen or pelvis. CONCLUSION: 1. Pulmonary emboli in segmental and subsegmental vessels of right middle lobe and right lower lobe. 2. New 24 mm. in diameter portal node, a couple of smaller new portal nodes are also present. 3. No gross interval change in retrocaval nodes identified on previous examination. 4. 35 mm. in diameter intrarenal abdominal aortic aneurysm.
== END 2019-06-15 00:36 ==
PROVIDERS: PCP Family Medicine; Visit Provider Registered Nurse Oncology
DX: C18.2 Malignant neoplasm of ascending colon (principal); I26.99 Other pulmonary embolism without acute cor pulmonale; J84.10 Pulmonary fibrosis, unspecified; I71.4 Abdominal aortic aneurysm, without rupture
CPT/HCPCS: 36591; 74177; 80053; 71260; 82378; 85025; J3490; Q9967

== ENCOUNTER 2019-06-15 01:38 | Outpatient (RCR) | payer MEDICARE, SELFPAY ==
[2019-06-15] MEDS: Heparin 500 UNITS/5 ML SYRINGE IV (08:05)
[2019-06-15] MEDS: Normal Saline Flush 10 ML SYR IVP (08:05)
[2019-06-15 08:14] LABS: Abs Immature Grans 0.01 k/cumm (0.0-0.09); Absolute Basophil Count 0.02 k/cumm (0.0-0.2); Absolute Eosinophil Count 0.16 k/cumm (0.0-0.7); Absolute Lymphocyte Count 1.97 k/cumm (1.2-3.4); Absolute Monocyte Count 0.67 k/cumm (0.11-0.7); Absolute Neutrophil Count 3.45 k/cumm (1.2-6.7); Basophils % 0.3; Eosinophils % 2.5; HCT 36.2 % (40.0-50.0); HGB 11.8 g/dL (13.5-17.5); Immature Grans % 0.2; Lymphocytes % 31.4; Mean Corp. HGB Concentration 32.6 g/dL (32.0-36.0); Mean Corpuscular Hemoglobin 30.6 pg (27.0-33.0); Mean Corpuscular Volume 93.8 fL (80-95); Mean Platelet Volume 9.9 fL (8.0-11.0); Monocytes % 10.7; Neutrophils % 54.9; Platelet Count 157 x1000/uL (130-400); RBC 3.86 m/cumm (4.50-6.00); RBC Distribution Width 13.1 % (11.8-14.1); White Blood Cell Count 6.28 k/cumm (4.4-10.8)
[2019-06-15 08:49] LABS: ALT 17 U/L (12-78); AST 46 U/L (15-37); Albumin 3.4 g/dL (3.4-5.0); Alkaline Phosphatase 41 U/L (46-116); BUN 19 mg/dL (7-18); Bilirubin, Total 0.6 mg/dL (0.2-1.0); CREATININE 0.89 mg/dL (0.70-1.30); Calcium 8.8 mg/dL (8.5-10.1); Chloride 106 mmol/L (98-107); Glucose 104 mg/dL (70-100); Potassium 4.2 mmol/L (3.5-5.1); Sodium 144 mmol/L (136-145); Total Protein 7.4 g/dL (6.4-8.2)
== END 2019-06-25 23:59 | disposition home or self-care (01) ==
LOC: INF 01:38
PROVIDERS: PCP Family Medicine; Visit Provider Nurse Practitioner Adult Health
DX: C18.2 Malignant neoplasm of ascending colon (principal); Z45.2 Encounter for adjustment and management of vascular access device
CPT/HCPCS: 36591; 80053; 82378; 85025

== ENCOUNTER 2019-06-20 13:57 | Outpatient (CLI) | payer MEDICARE, SELFPAY ==
--- NOTE | 2019-06-20 13:03 | DI.US_ITS ---
SYMPTOM/DIAGNOSIS: BILAT LOW EXT SWELLING, KNOWN PE, I26.99 BILATERAL DUPLEX LOWER EXTREMITY ULTRASOUND: RIGHT: The femoral and popliteal veins and visualized calf veins are freely compressible. The doppler venous wave form augments normally. No thrombus is visible. The saphenous vein appears free of thrombus. IMPRESSION: Negative right lower extremity ultrasound. LEFT: The common femoral, superficial femoral veins appear free of thrombus. Thrombus is visible in the popliteal vein. The posterior tibial veins appear free of thrombus. IMPRESSION: Popliteal vein thrombosis.
== END 2019-06-20 14:17 ==
PROVIDERS: PCP Family Medicine; Visit Provider Internal Medicine Hematology & Oncology
DX: R22.41 Localized swelling, mass and lump, right lower limb (principal); R22.42 Localized swelling, mass and lump, left lower limb; I82.432 Acute embolism and thrombosis of left popliteal vein
CPT/HCPCS: 93970

== ENCOUNTER 2019-06-23 10:22 | Emergency (ER) | payer MEDICARE, SELFPAY ==
[2019-06-23 10:26] VITALS: BP 161/76; PULSE 61; RESP 18; TEMP 37; O2SAT 95
--- NOTE | 2019-06-23 10:29 | DI.CT_ITS ---
SYMPTOM/DIAGNOSIS: HEADACHE AND WEAKNESS CT BRAIN: Noncontrast. Comparison 10/29/18 No acute intracranial hemorrhage, midline shift or mass effect is identified. No findings to suggest an acute territorial infarct are seen. There is cerebral atrophy and small vessel ischemic disease present. The ventricles are intact. The basilar cisterns are patent. Mucous retention cysts or polyps are seen in the maxillary sinus. There is moderate mucosal thickening in the left maxillary sinus. No fluid levels are seen. The calvarium shows no acute fracture. There are bilateral craniotomy defects noted. IMPRESSION: No acute intracranial process. The findings were discussed with Dr. Hyatt of the Emergency Department on the date of the examination.
--- NOTE | 2019-06-23 10:30 | ED.GENADUL_ITS ---
Discharge Plan Disposition Patient Disposition: HOME Condition: Stable Discharge Details Chief Complaint: CVA/TIA Clinical Impression: Headache Primary Care Provider: Timothy Rodriguez ED Provider: Steven Hyatt Home Meds and New Rx's Prescriptions: Continued Centrum Ultra Men's 8 mg iron- 200 mcg-600 mcg tablet 1 tab PO DAILY RF: 0 meclizine 25 mg tablet 25 mg PO DAILY PRNRF: 0 benzonatate [Tessalon Perles] 100 mg capsule 100 mg PO HS PRN (Reason: cough) Qty: 20 RF: 0 donepezil 10 mg tablet 10 mg PO DAILY Qty: 30 RF: 2 ranitidine HCl 150 mg capsule 150 mg PO BID Qty: 180 RF: 3 sertraline 50 mg tablet 50 mg PO DAILY Qty: 90 RF: 3 simvastatin 20 mg tablet 20 mg PO HS Qty: 90 RF: 3 acetaminophen 500 MG tablet 500 mg PO BID RF: 0 divalproex [Depakote] 500 mg tablet,delayed release (DR/EC) 500 mg PO BID Qty: 180 RF: 3 enoxaparin [Lovenox] 40 mg/0.4 mL Syringe 40 mg SUBCUT Q24H RF: 0 Discharge Instructions Instructions: General Headache (ED) Additional Instructions: follow up with your primary care provider within 1 week if you have severe worsening pain, weakness, or feel more ill return to the emergency department Medical Decision Making 79 yo male with multiple medical problems who comes in with chief complaint of headache and subjective wekaness in the left leg. He was diagnosed with a dvt in his left leg and started on lovenox this week and also has hx of sah. this morning he woke up with headache and felt weak on the left side. He has unequal pupils, right larger than the left, both are reactive. He has no focal motor or sensation deficits, NIH of 0 on my exam. Given his hx will obtain lab work and obtain CT head to eval for possible ICH given his symptoms. Less likely cva given lack of motor or sensation deficits labs and imaging unremarkable and he now denies having any headache and denies weakness. Given he had no weakness and NIh of 0 here do not feel cva workup or tia admission indicated. Given came within [address] doubt SAH and he denies the pain being worse of his life. His daughter now notes that his right pupil is chronically dilated and unchanged. given this will d/c and have him f/u with his pcp and return precautions given Differential Diagnosis sah, sdh, cva Imaging Data Radiologic Study: Attestation: I personally reviewed and interpreted this imaging study as follows: Imaging: CT Scan Radiologist's impression: no acute findings Lab Data Lab results reviewed: Yes I reviewed the patient's lab results. ECG Data Attestation: I personally reviewed and interpreted this ECG (s) as follows: Prior ECG tracings: not available for review Interpretation: sinus rhythm, rate of 60, pr 180, qtc 420 HPI General Mode of arrival: wheelchair . Date/Time Provider Initiated Documentation: 06/23/19 10:23 . Limitations to Documentation: no limitations . Information obtained by: patient . History of Present Illness 79 year old M presents to the emergency department with the chief complaint of headache, described as moderate, and it has been constant. No relieving factors improve symptom(s), No exacerbating factors reported . Patient notes weakness. Patient did receive the following treatments prior to arrival, none Related Data Home Medications Medication Instructions Recorded Confirmed acetaminophen 500 mg PO BID tab-cap 02/09/18 06/23/19 ranitidine HCl 150 mg capsule 150 mg PO BID #180 cap 08/10/18 06/23/19 multivit,Ca,min-iron 8 mg-folic 1 tab PO DAILY tab 10/12/18 06/23/19 acid 200 mcg-lycopene 600 mcg tablet meclizine 25 mg tablet 25 mg PO DAILY PRN 01/10/19 06/23/19 sertraline 50 mg tablet 50 mg PO DAILY #90 tab-cap 02/09/19 06/23/19 simvastatin 20 mg tablet 20 mg PO HS #90 tab-cap 02/09/19 06/23/19 divalproex 500 mg tablet,delayed 500 mg PO BID #180 tab 05/05/19 06/23/19 release benzonatate 100 mg capsule 100 mg PO HS PRN #20 cap 05/11/19 06/23/19 donepezil 10 mg tablet 10 mg PO DAILY #30 tab 05/11/19 06/23/19 enoxaparin [Lovenox] 40 mg SUBCUT Q24H 06/23/19 06/23/19 Previous Rx's Medication Instructions Recorded ranitidine HCl 150 mg capsule 150 mg PO BID #180 cap 08/10/18 sertraline 50 mg tablet 50 mg PO DAILY #90 tab-cap 02/09/19 simvastatin 20 mg tablet 20 mg PO HS #90 tab-cap 02/09/19 divalproex 500 mg tablet,delayed 500 mg PO BID #180 tab 05/05/19 release benzonatate 100 mg capsule 100 mg PO HS PRN #20 cap 05/11/19 donepezil 10 mg tablet 10 mg PO DAILY #30 tab 05/11/19 Allergies Allergy/AdvReac Type Severity Reaction Status Date / Time pantoprazole sodium Allergy Severe THROAT Verified 06/23/19 10:32 [From Protonix] SWELLING/CHILLS General Stated Complaint: CVA/TIA ANY: 1 Review of Systems Review of Systems All systems reviewed & are unremarkable except as noted in HPI and below Constitutional Denies chills and Denies fever(s) Cardiovascular Denies chest pain and Denies dyspnea Respiratory Denies cough and Denies dyspnea Gastrointestinal Denies abdominal pain, Denies nausea and Denies vomiting Integumentary/Breasts Denies rash [facility] Social History Smoking/Tobacco Use Status: Former Tobacco Use Alcohol Intake: former Drug use: Never Substance use type: does not use What type of physical activity do you participate in: none Seatbelt use: always Do you feel safe at home: Yes Do you feel safe in your relationship?: Yes Exam Const General: no acute distress Orientation: alert HENMT Head: normal to inspection Ears: external ears normal General nose exam: external nose normal Mouth: moist mucous membranes Eyes Alignment and Position: alignment normal Neck Neck: normal visual inspection Resp Effort & Inspection: normal respiratory effort and able to speak in complete sentences Cardio Rate: regular rate Skin General skin exam: no rashes or lesions noted Neuro General: alert and oriented x3 Extrem General: normal to inspection Psych Mental Status: mental status grossly normal Course Vital Signs Temperature 37 C 06/23/19 10:26 Pulse 61 06/23/19 10:26 Respiratory Rate 18 06/23/19 10:26 Blood Pressure 161/76 H 06/23/19 10:26 Pulse Oximetry 95 06/23/19 10:26 Temperature 37 C 06/23/19 10:26 Temperature Source Temporal Artery Scan 06/23/19 10:26 Pulse 61 06/23/19 10:26 Respiratory Rate 18 06/23/19 10:26 Blood Pressure 161/76 H 06/23/19 10:26 Blood Pressure Position Supine 06/23/19 10:26 Pulse Oximetry 95 06/23/19 10:26 Oxygen Delivery Method Room Air 06/23/19 10:26 Oxygen Flow Rate 0 06/23/19 10:26 Pain Level 5 06/23/19 10:26
[2019-06-23 10:51] LABS: Abs Immature Grans 0.01 k/cumm (0.0-0.09); Absolute Basophil Count 0.02 k/cumm (0.0-0.2); Absolute Eosinophil Count 0.13 k/cumm (0.0-0.7); Absolute Lymphocyte Count 1.74 k/cumm (1.2-3.4); Absolute Monocyte Count 0.64 k/cumm (0.11-0.7); Absolute Neutrophil Count 3.06 k/cumm (1.2-6.7); Basophils % 0.4; Eosinophils % 2.3; HCT 36.1 % (40.0-50.0); HGB 11.6 g/dL (13.5-17.5); Immature Grans % 0.2; Lymphocytes % 31.1; Mean Corp. HGB Concentration 32.1 g/dL (32.0-36.0); Mean Corpuscular Hemoglobin 30.2 pg (27.0-33.0); Mean Platelet Volume 9.9 fL (8.0-11.0); Monocytes % 11.4; Neutrophils % 54.6; Platelet Count 148 x1000/uL (130-400); RBC 3.84 m/cumm (4.50-6.00); RBC Distribution Width 13.3 % (11.8-14.1)
[2019-06-23 10:53] VITALS: PULSE 56; RESP 15; O2SAT 95
[2019-06-23 11:04] LABS: ALT 20 U/L (16-63); AST 42 U/L (15-37); Albumin 3.3 g/dL (3.4-5.0); Alkaline Phosphatase 44 U/L (46-116); Anion Gap 9.3 mmol/L (3-11); BUN 22 mg/dL (7-18); Bilirubin, Total 0.4 mg/dL (0.2-1.0); CO2 29.7 mmol/L (21.0-32.0); CREATININE 0.99 mg/dL (0.70-1.30); Calcium 8.6 mg/dL (8.5-10.1); Chloride 107 mmol/L (98-107); Glucose 98 mg/dL (70-100); Potassium 4.1 mmol/L (3.5-5.1); Sodium 146 mmol/L (136-145); Total Protein 7.2 g/dL (6.4-8.2)
[2019-06-23 11:08] LABS: PTT Activated 20.8 sec (21.0-31.4); Prothrombin Time 9.9 sec (9.3-11.0)
[2019-06-23 11:26] VITALS: RESP 19
== END 2019-06-23 11:35 | disposition home or self-care (01) ==
LOC: ER 11:46
PROVIDERS: Emergency Provider Emergency Medicine; PCP Family Medicine
DX: R51 Headache (principal); I10 Essential (primary) hypertension; J44.9 Chronic obstructive pulmonary disease, unspecified; Z87.891 Personal history of nicotine dependence; Z86.79 Personal history of other diseases of the circulatory system
CPT/HCPCS: 36415; 80053; 93005; 99285; 70450; 83735; 85025; 85610; 85730; 93010; 99284

== ENCOUNTER 2019-09-07 00:35 | Outpatient (CLI) | payer MEDICARE, SELFPAY ==
--- NOTE | 2019-09-07 09:30 | DI.CT_ITS ---
EXAM: CT CHEST/ABD/PEL W CLINICAL HISTORY: H/O COLON CA, C18.2, RESTAGING EXAM,F/U [address] TECHNIQUE: Imaging Protocol: Axial computed tomography images with coronal and sagittal reformatted images were created and reviewed CONTRAST MATERIAL: Intravenous: Omnipaque 350 Contrast volume:100 mL contrast route:IV - Oral: Yes COMPARISON: CT CHEST/ABD/PEL W from 06/15/2019 FINDINGS: CHEST: Tracheobronchial tree: Patent where visualized. Mediastinum and [place]: No dominant adenopathy or fluid collection. Pulmonary parenchyma: No consolidation or dominant measurable mass. No architectural distortion. A c alcified granuloma is seen in the right upper lobe Pleura: No effusion or pneumothorax. Lymph nodes: Within normal limits. Aorta: Atherosclerosis. Heart: No pericardial effusion is present. Coronary artery calcifications are present. The tip of [facility] central venous catheter is seen in the superior vena cava. Pulmonary arteries: The central pulmonary arteries are clear. No pulmonary emboli are present. ABDOMEN: Liver: Normal density. No measurable mass. The portal, superior mesenteric and splenic veins are asher nt. Gallbladder and biliary tract: No radiodense calculus or dilation. Pancreas: Normal density, no abnormal calcifications or inflammatory process. Spleen: Normal. Kidneys: Normal size, contour and axis. No radiodense stones or obstructive uropathy. Bilateral renal cysts. Adrenal glands: No masses seen. Aorta: Stable 3.5 centimeter infrarenal abdominal aortic aneurysm. Atherosclerosis. Lymph nodes: Portal lymph node now measures 2.9 centimeters. This compares with 2.4 centimeters on [facility] prior examination. There is also been interval increase in size of an adjacent aortic caval lymph node. This now measures 1.5 centimeters compared with 1.1 centimeters on the prior examination. PELVIS: Bladder: Symmetric distention, no gross wall thickening. Bowel: There diverticulosis of the colon but no evidence of acute diverticulitis. No evidence of obs truction or acute appendicitis. Peritoneal cavity: No ascites, collection or mesenteric inflammatory response. Bones: There are degenerative changes seen in the spine. Reproductive organs: The prostate gland is enlarged and impinges upon the base of the urinary bladder . It is unchanged compared to the prior examination. IMPRESSION: 1. Interval increase in size of abdominal lymph nodes since 06/15/2019. 2. No evidence of thoracic metastatic disease. DATA REPOSITORY: All CT scans at this facility are submitted to the National Radiology Data Registry (NRDR) Dose Index Registry (DIR) with the [employer] (ACR). RADIATION OPTIMIZATION: All CT scans at this facility use at least one of these dose optimization te chniques: automated exposure control; mA and/or kV adjustment per patient size (includes targeted exa ms where dose is matched to clinical indication); or iterative reconstruction.
[2019-09-07] MEDS: Omnipaque 350 MG/ML 100 ML BTL IJ (09:43)
[2019-09-07] MEDS: Omnipaque 350 MG/ML 50 ML BTL PO (09:43)
[2019-09-07] MEDS: Breeza Beverage 473 ML BTL PO ×2 (09:50→09:53)
== END 2019-09-07 00:55 ==
PROVIDERS: PCP Family Medicine; Visit Provider Internal Medicine Hematology & Oncology
DX: C18.2 Malignant neoplasm of ascending colon (principal); Z12.89 Encounter for screening for malignant neoplasm of other sites; I70.0 Atherosclerosis of aorta; I71.4 Abdominal aortic aneurysm, without rupture; R59.0 Localized enlarged lymph nodes; N40.0 Benign prostatic hyperplasia without lower urinary tract symptoms
CPT/HCPCS: 36591; 74177; 80053; 71260; 82378; 85025; J3490; Q9967

== ENCOUNTER 2019-09-07 00:52 | Outpatient (RCR) | payer MEDICARE, SELFPAY ==
[2019-09-07] MEDS: Normal Saline Flush 10 ML SYR IVP (08:04)
[2019-09-07] MEDS: Heparin 500 UNITS/5 ML SYRINGE IV (08:05)
[2019-09-07 08:11] LABS: Abs Immature Grans 0.01 k/cumm (0.0-0.09); Absolute Basophil Count 0.02 k/cumm (0.0-0.2); Absolute Eosinophil Count 0.11 k/cumm (0.0-0.7); Absolute Lymphocyte Count 1.78 k/cumm (1.2-3.4); Absolute Monocyte Count 0.67 k/cumm (0.11-0.7); Absolute Neutrophil Count 3.43 k/cumm (1.2-6.7); Basophils % 0.3; Eosinophils % 1.8; HCT 37.3 % (40.0-50.0); HGB 12.1 g/dL (13.5-17.5); Immature Grans % 0.2; Lymphocytes % 29.6; Mean Corp. HGB Concentration 32.4 g/dL (32.0-36.0); Mean Corpuscular Hemoglobin 30.6 pg (27.0-33.0); Mean Corpuscular Volume 94.4 fL (80-95); Mean Platelet Volume 9.7 fL (8.0-11.0); Monocytes % 11.1; Platelet Count 164 x1000/uL (130-400); RBC 3.95 m/cumm (4.50-6.00); RBC Distribution Width 13.1 % (11.8-14.1); White Blood Cell Count 6.02 k/cumm (4.4-10.8)
[2019-09-07 08:29] LABS: ALT 20 U/L (16-63); AST 35 U/L (15-37); Albumin 3.6 g/dL (3.4-5.0); Alkaline Phosphatase 43 U/L (46-116); Anion Gap 6.4 mmol/L (3-11); BUN 22 mg/dL (7-18); Bilirubin, Total 0.5 mg/dL (0.2-1.0); CO2 30.6 mmol/L (21.0-32.0); CREATININE 0.97 mg/dL (0.70-1.30); Calcium 8.9 mg/dL (8.5-10.1); Chloride 105 mmol/L (98-107); Glucose 114 mg/dL (70-100); Potassium 4.3 mmol/L (3.5-5.1); Sodium 142 mmol/L (136-145); Total Protein 7.7 g/dL (6.4-8.2)
[2019-09-08 16:17] LABS: CEA 0.8 ng/mL (See Note)
== END 2019-09-24 23:59 | disposition home or self-care (01) ==
LOC: INF 00:52
PROVIDERS: PCP Family Medicine; Visit Provider Internal Medicine Hematology & Oncology
DX: C18.2 Malignant neoplasm of ascending colon (principal); Z45.2 Encounter for adjustment and management of vascular access device
CPT/HCPCS: 36591; 80053; 82378; 85025

== ENCOUNTER 2019-09-16 03:05 | Outpatient (RCR) | payer MEDICARE, SELFPAY | END 2019-09-24 23:59 | disposition home or self-care (01) | LOC: INF 03:05 | PROVIDERS: PCP Family Medicine; Visit Provider Internal Medicine Hematology & Oncology | DX: R69 Illness, unspecified (principal) ==

== ENCOUNTER 2019-10-31 10:27 | Emergency (ER) | payer MEDICARE, SELFPAY ==
[2019-10-31] VITALS (45 sets, daily range): BP systolic 113–149; BP diastolic 63–84; PULSE 53–81; RESP 11–23; TEMP 36.5; O2SAT 93–99
--- NOTE | 2019-10-31 09:32 | DI.RAD_ITS ---
EXAM: XR PORTABLE CHEST AP INDICATION: cough, SOB. COMPARISON: XR PORTABLE CHEST AP from 10/29/2018 CT CHEST/ABD/PEL W from 09/07/2019 TECHNIQUE: 2D digital imaging was performed. FINDINGS: The heart size is normal. The aorta is tortuous. A port is again noted over the right chest with the tip in the SVC. No infiltrate, effusion or pulmonary edema is seen. IMPRESSION: No acute abnormality.
--- NOTE | 2019-10-31 10:32 | DI.CT_ITS ---
EXAM: CT HEAD WO CLINICAL HISTORY: possible stroke, AMS TECHNIQUE: Noncontrast COMPARISON: CT HEAD FOR STROKE PROTOCOL from 06/23/2019 FINDINGS: Bilateral craniotomy defects are again noted. No acute hemorrhage, mass or acute infarct is seen. There are prominent white matter changes of small vessel disease. Atrophy is present. The ventricle s are unchanged in size. There is no acute skull fracture. There is mucous retention in both maxill jacqueline sinuses. IMPRESSION: No acute abnormality.
--- NOTE | 2019-10-31 11:08 | ED.GENADUL_ITS ---
Discharge Plan Disposition Patient Disposition: HOME Condition: Stable Discharge Details Chief Complaint: CVA/TIA Clinical Impression: Confusion Primary Care Provider: Timothy Rodriguez ED Provider: Oralia Granados Home Meds and New Rx's Prescriptions: Continued Centrum Ultra Men's 8 mg iron- 200 mcg-600 mcg tablet 1 tab PO DAILY RF: 0 meclizine 25 mg tablet 25 mg PO DAILY PRNRF: 0 benzonatate [Tessalon Perles] 100 mg capsule 100 mg PO HS PRN (Reason: cough) Qty: 30 RF: 5 famotidine [Pepcid] 20 mg tablet 20 mg PO BID Qty: 180 RF: 3 donepezil 10 mg tablet 10 mg PO DAILY Qty: 90 RF: 3 sertraline 50 mg tablet 50 mg PO DAILY Qty: 90 RF: 3 acetaminophen 500 MG tablet 500 mg PO BID RF: 0 divalproex [Depakote] 500 mg tablet,delayed release (DR/EC) 500 mg PO BID Qty: 180 RF: 3 lorazepam [Ativan] 1 mg Tablet 1 mg PO DAILY PRNRF: 0 enoxaparin [Lovenox] 40 mg/0.4 mL Syringe 40 mg SUBCUT Q24H RF: 0 Discharge Instructions Instructions: Altered Mental Status (ED) Additional Instructions: Please return immediately to the emergency department if you develop any new or worsening symptoms, if your condition does not improve as expected, or if you become otherwise concerned. It is extremely important that you call soon as possible to make an appointment to be seen in follow-up for this visit by your primary care doctor. Referrals: Sandrine Clark MD [ [facility] STAFF PHYSICIAN] - Timothy Rodriguez [Primary Care Provider] - Discharge Data Discharge Date/Time-TO BE ENTERED AT DEPARTURE: 10/31/19 16:05 Medical Decision Making Bryan Brown is an 79-year-old man with a history of hypertension, A. fib, COPD, GERD, likely recurrent colon cancer, pulmonary embolus in the past, subarachnoid hemorrhage, dementia presenting to the emergency department with gradually increasing confusion, worse today, also with gradually increasing shortness of breath. Concern for worsening dementia, metabolic/electrolyte derangement, UTI, pneumonia, CHF, PE, other. Doubt ACS. Doubt acute emergent intracranial process, although given somewhat unclear history of whether patient's confusion is acute or chronic, plan for CT head. Also plan for EKG, screening labs, chest x-ray. Initial troponin negative, d-dimer elevated. CXR, CT head neg. Plan for CT chest. CT chest negative. After lengthy discussion with patient's daughter and , it does seem that patient's confusion is essentially at baseline for him today, with his normal morning confusion lasting somewhat longer than usual. Family reports that patient is currently at his baseline. At this time, I do not believe that patient's earlier symptoms were caused by TIA/CVA. No acute emergent life-threatening process identified at this time. Plan for possible admission for worsening confusion, family having difficulty caring for patient at home. patient is a hospice patient. Care management involved. After discussions with care management, family would like to take patient home. Patient's daughter states that she will be moving in to the patient's home to assist her mother in caring for the patient. They feel comfortable with this plan, and at this time would prefer to keep him at home rather than admit him to the hospital. Patient repeatedly requesting to go home. I had a lengthy discussion with Patient and his family regarding return to emergency department precautions, home care, and importance of outpatient follow-up. Pt and his family verbalize understanding of the plan and are amenable. Patient discharged to home with clear plan for outpatient follow-up. All questions were answered. Disposition decision was made weighing the risks and benefits of hospitalization versus outpatient treatment, the risk for further decompensation, and the patient's wishes. Medical Records Medical records reviewed: Yes I reviewed the patient's medical records. Imaging Data Radiologic Study: Attestation: I personally reviewed and interpreted this imaging study as follows: Radiologist's impression: EXAM: CT HEAD WO CLINICAL HISTORY: possible stroke, AMS TECHNIQUE: Noncontrast COMPARISON: CT HEAD FOR STROKE PROTOCOL from 06/23/2019 FINDINGS: Bilateral craniotomy defects are again noted. No acute hemorrhage, mass or acute infarct is seen. There are prominent white matter changes of small vessel disease. Atrophy is present. The ventricles are unchanged in size. There is no acute skull fracture. There is mucous retention in both maxillary sinuses. IMPRESSION: No acute abnormality. EXAM: XR PORTABLE CHEST AP INDICATION: cough, SOB. COMPARISON: XR PORTABLE CHEST AP from 10/29/2018 CT CHEST/ABD/PEL W from 09/07/2019 TECHNIQUE: 2D digital imaging was performed. FINDINGS: The heart size is normal. The aorta is tortuous. A port is again noted over the right chest with the tip in the SVC. No infiltrate, effusion or pulmonary edema is seen. IMPRESSION: No acute abnormality. EXAM: CT CHEST PE CTA CLINICAL HISTORY: SOB TECHNIQUE: Post IV contrast according to the pulmonary embolism protocol. Axial CT angiography was performed with multi-slice acquisition and multi-planar and/or 3D reconstructions. COMPARISON: CT CHEST/ABD/PEL W from 09/07/2019 CT CHEST PE CTA from 10/31/2019 FINDINGS: There is no evidence of pulmonary emboli or aortic dissection. The lungs show respiratory motion. No pleural or pericardial effusions are seen. There is stable mild bilateral lower lobe atelectasis. IMPRESSION: No acute abnormality. Lab Data Lab results reviewed: Yes I reviewed the patient's lab results. Labs: 10/31/19 11:13 Nasopharynx Influenza Types A,B Antigen - Final Laboratory Tests Range/Units 10/31/19 10/31/19 10/31/19 10:23 10:23 10:23 WBC (4.4-10.8) k/cumm 9.46 RBC (4.50-6.00) m/cumm 4.16 L Hgb (13.5-17.5) g/dL 12.7 L Hct (40.0-50.0) % 39.1 L MCV (80-95) fL 94.0 MCH (27.0-33.0) pg 30.5 MCHC (32.0-36.0) g/dL 32.5 RDW (11.8-14.1) % 12.8 Plt Count (130-400) x1000/uL 182 MPV (8.0-11.0) fL 10.4 Immature Gran % % 0.2 Neutrophils % 67.0 Lymphocytes % 23.5 Monocytes % 8.0 Eosinophils % 1.1 Basophils % 0.2 Absolute Neutrophils (1.2-6.7) k/cumm 6.34 Absolute Lymphocytes (1.2-3.4) k/cumm 2.22 Absolute Monocytes (0.11-0.7) k/cumm 0.76 H Absolute Eosinophils (0.0-0.7) k/cumm 0.10 Absolute Basophils (0.0-0.2) k/cumm 0.02 D-Dimer (<500) ng/mlFEU 1547 H Sodium (136-145) mmol/L 143 Potassium (3.5-5.1) mmol/L 4.1 Chloride (98-107) mmol/L 103 Carbon Dioxide (21.0-32.0) mmol/L 31.4 Anion Gap (3-11) mmol/L 8.6 BUN (7-18) mg/dL 20 H Creatinine (0.70-1.30) mg/dL 0.97 Estimated GFR/1.73 m2 (mL/min/1.73m2) >= 60.00 Glucose (74-106) mg/dL 137 H Calcium (8.5-10.1) mg/dL 9.1 Magnesium (1.8-2.4) mg/dL Total Bilirubin (0.2-1.0) mg/dL 0.4 AST (15-37) U/L 42 H ALT (16-63) U/L 18 Alkaline Phosphatase (46-116) U/L 55 Troponin I (<0.06) ng/Ml < 0.05 NT-Pro-B Natriuret Pep (<300) pg/mL Total Protein (6.4-8.2) g/dL 7.9 Albumin (3.4-5.0) g/dL 3.4 TSH (0.36-3.74) uIU/mL Urine Color (Yellow) Urine Clarity (Clear) Urine pH (5-8) Ur Specific [place] (1.005-1.025) Urine Protein (Negative) mg/dL Urine Ketones (Negative) mg/dL Urine Blood (Negative) Urine Nitrite (Negative) Urine Bilirubin (Negative) Urine Urobilinogen (Up TO 0.2) EU/dL Ur Leukocyte Esterase (Negative) Urine RBC (0-2) HPF Urine WBC (0-5) HPF Ur Epithelial Cells (Negative) HPF Urine Crystals (Negative) HPF Urine Bacteria (Negative) HPF Urine Casts (Negative) LPF Urine Mucus (Negative) Urine Other (Negative) Ur Culture Indicated? Urine Glucose (Negative) mg/dL Range/Units 10/31/19 10/31/19 10/31/19 10:23 10:23 10:23 WBC (4.4-10.8) k/cumm RBC (4.50-6.00) m/cumm Hgb (13.5-17.5) g/dL Hct (40.0-50.0) % MCV (80-95) fL MCH (27.0-33.0) pg MCHC (32.0-36.0) g/dL RDW (11.8-14.1) % Plt Count (130-400) x1000/uL MPV (8.0-11.0) fL Immature Gran % % Neutrophils % Lymphocytes % Monocytes % Eosinophils % Basophils % Absolute Neutrophils (1.2-6.7) k/cumm Absolute Lymphocytes (1.2-3.4) k/cumm Absolute Monocytes (0.11-0.7) k/cumm Absolute Eosinophils (0.0-0.7) k/cumm Absolute Basophils (0.0-0.2) k/cumm D-Dimer (<500) ng/mlFEU Sodium (136-145) mmol/L Potassium (3.5-5.1) mmol/L Chloride (98-107) mmol/L Carbon Dioxide (21.0-32.0) mmol/L Anion Gap (3-11) mmol/L BUN (7-18) mg/dL Creatinine (0.70-1.30) mg/dL Estimated GFR/1.73 m2 (mL/min/1.73m2) Glucose (74-106) mg/dL Calcium (8.5-10.1) mg/dL Magnesium (1.8-2.4) mg/dL 1.8 Total Bilirubin (0.2-1.0) mg/dL AST (15-37) U/L ALT (16-63) U/L Alkaline Phosphatase (46-116) U/L Troponin I (<0.06) ng/Ml NT-Pro-B Natriuret Pep (<300) pg/mL 526 H Total Protein (6.4-8.2) g/dL Albumin (3.4-5.0) g/dL TSH (0.36-3.74) uIU/mL 1.54 Urine Color (Yellow) Urine Clarity (Clear) Urine pH (5-8) Ur Specific [place] (1.005-1.025) Urine Protein (Negative) mg/dL Urine Ketones (Negative) mg/dL Urine Blood (Negative) Urine Nitrite (Negative) Urine Bilirubin (Negative) Urine Urobilinogen (Up TO 0.2) EU/dL Ur Leukocyte Esterase (Negative) Urine RBC (0-2) HPF Urine WBC (0-5) HPF Ur Epithelial Cells (Negative) HPF Urine Crystals (Negative) HPF Urine Bacteria (Negative) HPF Urine Casts (Negative) LPF Urine Mucus (Negative) Urine Other (Negative) Ur Culture Indicated? Urine Glucose (Negative) mg/dL Range/Units 10/31/19 10/31/19 11:40 14:29 WBC (4.4-10.8) k/cumm RBC (4.50-6.00) m/cumm Hgb (13.5-17.5) g/dL Hct (40.0-50.0) % MCV (80-95) fL MCH (27.0-33.0) pg MCHC (32.0-36.0) g/dL RDW (11.8-14.1) % Plt Count (130-400) x1000/uL MPV (8.0-11.0) fL Immature Gran % % Neutrophils % Lymphocytes % Monocytes % Eosinophils % Basophils % Absolute Neutrophils (1.2-6.7) k/cumm Absolute Lymphocytes (1.2-3.4) k/cumm Absolute Monocytes (0.11-0.7) k/cumm Absolute Eosinophils (0.0-0.7) k/cumm Absolute Basophils (0.0-0.2) k/cumm D-Dimer (<500) ng/mlFEU Sodium (136-145) mmol/L Potassium (3.5-5.1) mmol/L Chloride (98-107) mmol/L Carbon Dioxide (21.0-32.0) mmol/L Anion Gap (3-11) mmol/L BUN (7-18) mg/dL Creatinine (0.70-1.30) mg/dL Estimated GFR/1.73 m2 (mL/min/1.73m2) Glucose (74-106) mg/dL Calcium (8.5-10.1) mg/dL Magnesium (1.8-2.4) mg/dL Total Bilirubin (0.2-1.0) mg/dL AST (15-37) U/L ALT (16-63) U/L Alkaline Phosphatase (46-116) U/L Troponin I (<0.06) ng/Ml < 0.05 NT-Pro-B Natriuret Pep (<300) pg/mL Total Protein (6.4-8.2) g/dL Albumin (3.4-5.0) g/dL TSH (0.36-3.74) uIU/mL Urine Color (Yellow) Yellow Urine Clarity (Clear) Clear Urine pH (5-8) 8.5 H Ur Specific [place] (1.005-1.025) 1.020 Urine Protein (Negative) mg/dL Trace H Urine Ketones (Negative) mg/dL Negative Urine Blood (Negative) Trace-intact H Urine Nitrite (Negative) Negative Urine Bilirubin (Negative) Negative Urine Urobilinogen (Up TO 0.2) EU/dL 0.2 Ur Leukocyte Esterase (Negative) Negative Urine RBC (0-2) HPF 3-5 H Urine WBC (0-5) HPF 0-2 Ur Epithelial Cells (Negative) HPF Rare Urine Crystals (Negative) HPF Moderate amorphous Urine Bacteria (Negative) HPF Few Urine Casts (Negative) LPF Negative Urine Mucus (Negative) Moderate Urine Other (Negative) Negative Ur Culture Indicated? No Urine Glucose (Negative) mg/dL Negative ECG Data Attestation: I personally reviewed and interpreted this ECG (s) as follows: Interpretation: EKG shows sinus rhythm at 72 with occasional PVC, left axis, right bundle branch block, no STEMI, nondiagnostic EKG, left axis and right bundle branch block present on prior 06/13 HPI General Mode of arrival: EMS . Date/Time Provider Initiated Documentation: 10/31/19 11:07 . Limitations to Documentation: altered mental status . Information obtained by: patient, family, RN notes reviewed and old records reviewed . HPI Narrative: Bryan Brown is an 79-year-old man with a history of hypertension, A. fib, COPD, GERD, likely recurrent colon cancer, pulmonary embolus in the past, subarachnoid hemorrhage, dementia presenting to the emergency department with altered mental status. Patient is accompanied by his and daughter who assists in providing history. Per patient's and daughter, patient has been having episodes of morning confusion and disorientation over the past few months which seem to have been worsening over time. They report that this morning patient woke up at approximately 5 AM and was more confused than usual. He had difficulty with word finding. He did become increasingly anxious and agitated, and he was given 1 mg p.o. Ativan at home at approximately 7:30 AM. His anxiety and agitation seem to resolve, but patient's confusion persisted. This episode of confusion has lasted longer than is typical for him. Patient's reports that he has been having increasing shortness of breath over the past month or so. She reports that over the past few weeks patient has essentially stopped walking because of his shortness of breath. Patient's and daughter also report that patient has had productive cough for the past few weeks. No fever, no vomiting, no diarrhea, no complaint of pain, no rash, no apparent focal weakness. Has continued to eat and drink as usual for him. Patient has had colon cancer in the past, recently diagnosed wi th likely recurrence with multiple positive lymph nodes. Patient is on hospice for cancer treatment and is DNR/DNI in EHR, which is confirmed by his and daughter. Patient is currently on Lovenox for thromboembolism, A. fib, but has had intracranial hemorrhage while on anticoagulation in the past. Related Data Home Medications Medication Instructions Recorded Confirmed acetaminophen 500 mg PO BID tab-cap 02/09/18 10/31/19 multivit,Ca,min-iron 8 mg-folic 1 tab PO DAILY tab 10/12/18 08/10/19 acid 200 mcg-lycopene 600 mcg tablet meclizine 25 mg tablet 25 mg PO DAILY PRN 01/10/19 10/31/19 sertraline 50 mg tablet 50 mg PO DAILY #90 tab-cap 02/09/19 10/31/19 divalproex 500 mg tablet,delayed 500 mg PO BID #180 tab 05/05/19 10/31/19 release enoxaparin [Lovenox] 40 mg SUBCUT Q24H 06/23/19 10/31/19 benzonatate 100 mg capsule 100 mg PO HS PRN #30 cap 08/10/19 10/31/19 donepezil 10 mg tablet 10 mg PO DAILY #90 tab 08/10/19 10/31/19 famotidine 20 mg tablet 20 mg PO BID #180 tab 08/10/19 10/31/19 lorazepam [Ativan] 1 mg PO DAILY PRN 10/31/19 10/31/19 Previous Rx's Medication Instructions Recorded sertraline 50 mg tablet 50 mg PO DAILY #90 tab-cap 02/09/19 divalproex 500 mg tablet,delayed 500 mg PO BID #180 tab 05/05/19 release benzonatate 100 mg capsule 100 mg PO HS PRN #30 cap 08/10/19 donepezil 10 mg tablet 10 mg PO DAILY #90 tab 08/10/19 famotidine 20 mg tablet 20 mg PO BID #180 tab 08/10/19 Allergies Allergy/AdvReac Type Severity Reaction Status Date / Time pantoprazole sodium Allergy Severe THROAT Verified 10/31/19 10:59 [From Protonix] SWELLING/CHILLS General Stated Complaint: CVA/TIA ANY: 2 Review of Systems Narrative: Constitutional: denies fevers Eyes: denies eye pain ENT: denies ear pain, dental pain, sore throat Cardiovascular: denies chest pain Respiratory: Denies shortness of breath at rest, reports dyspnea on exertion, cough GI: denies abdominal pain, vomiting, diarrhea : denies flank pain MSK: denies back pain, neck pain, arthralgias, myalgias Skin: denies rash Neuro: denies headaches, numbness, focal weakness reports generalized weakness Review of systems provided by patient, , daughter [facility] Medical History BPH (benign prostatic hyperplasia) COPD (chronic obstructive pulmonary disease) GERD (gastroesophageal reflux disease) History of colon cancer Intention tremor Paroxysmal atrial fibrillation PE (pulmonary thromboembolism) Seizures, post-traumatic (Acute) Social History Smoking/Tobacco Use Status: Former Tobacco Use Alcohol Intake: former Drug use: Never Substance use type: does not use What type of physical activity do you participate in: none Seatbelt use: always Do you feel safe at home: Yes Do you feel safe in your relationship?: Yes Exam Narrative Exam Narrative: Constitutional: Chronically ill but acutely [id number], calm, alert, following most commands, responds to questions in 1 or 2 word sentences HENT: head atraumatic/normocephalic/normal inspection, mucous membranes moist Eyes: conjunctiva normal, sclera normal, pupil 3 mm and reactive on the left, 5 mm and irregular on the right (this is unchanged from baseline per family) extraocular movements intact without nystagmus Neck: no stridor, normal ROM, trachea midline Chest: normal inspection Resp: normal work of breathing, LCTAB Cardio: normal rate, irregular rhythm, no murmur appreciated GI: abdomen soft, non-tender, non-distended Back: normal inspection, no rash Skin: warm, dry, normal color, no rash Neuro: alert, difficult to assess cranial nerves as patient not following all commands but cranial nerves grossly intact, motor is grossly 5-5 bilateral upper and lower extremities, no pronator drift Ext: no edema, no posterior calf tenderness to palpation Course Vital Signs Vital signs: Vital Signs Pulse 70 10/31/19 10:39 Respiratory Rate 16 10/31/19 10:39 Blood Pressure 149/75 H 10/31/19 10:39 Pulse Oximetry 97 10/31/19 10:39 Temperature 36.5 C 10/31/19 10:45 Temperature Source Skin 10/31/19 10:45 Pulse 72 10/31/19 10:45 Pulse 80 10/31/19 10:50 Respiratory Rate 18 10/31/19 10:50 Respiratory Effort 10/31/19 10:50 Blood Pressure 149/75 H 10/31/19 10:45 Blood Pressure Mean 92 10/31/19 10:39 Blood Pressure Position Sitting 10/31/19 10:45 Pulse Oximetry 99 10/31/19 10:50 Oxygen Delivery Method Nasal Cannula 10/31/19 10:45 Oxygen Flow Rate 2 10/31/19 10:45 Pain Level 0 10/31/19 10:45
[2019-10-31 11:20] LABS: Abs Immature Grans 0.02 k/cumm (0.0-0.09); Absolute Basophil Count 0.02 k/cumm (0.0-0.2); Absolute Lymphocyte Count 2.22 k/cumm (1.2-3.4); Absolute Monocyte Count 0.76 k/cumm (0.11-0.7); Absolute Neutrophil Count 6.34 k/cumm (1.2-6.7); Basophils % 0.2; Eosinophils % 1.1; HCT 39.1 % (40.0-50.0); HGB 12.7 g/dL (13.5-17.5); Immature Grans % 0.2 %; Lymphocytes % 23.5; Mean Corp. HGB Concentration 32.5 g/dL (32.0-36.0); Mean Corpuscular Hemoglobin 30.5 pg (27.0-33.0); Mean Platelet Volume 10.4 fL (8.0-11.0); Platelet Count 182 x1000/uL (130-400); RBC 4.16 m/cumm (4.50-6.00); RBC Distribution Width 12.8 % (11.8-14.1); White Blood Cell Count 9.46 k/cumm (4.4-10.8)
[2019-10-31 11:32] LABS: Magnesium 1.8 mg/dL (1.8-2.4)
[2019-10-31 11:39] LABS: ALT 18 U/L (16-63); AST 42 U/L (15-37); Albumin 3.4 g/dL (3.4-5.0); Alkaline Phosphatase 55 U/L (46-116); Anion Gap 8.6 mmol/L (3-11); BUN 20 mg/dL (7-18); Bilirubin, Total 0.4 mg/dL (0.2-1.0); CO2 31.4 mmol/L (21.0-32.0); CREATININE 0.97 mg/dL (0.70-1.30); Calcium 9.1 mg/dL (8.5-10.1); Chloride 103 mmol/L (98-107); Glucose 137 mg/dL (74-106); Potassium 4.1 mmol/L (3.5-5.1); Sodium 143 mmol/L (136-145); Total Protein 7.9 g/dL (6.4-8.2); Troponin I < 0.05 ng/Ml (<0.06)
[2019-10-31 11:41] LABS: NT-proBNP 526 pg/mL (<300)
[2019-10-31 11:45] LABS: TSH (W/Ref FT4) 1.54 uIU/mL (0.36-3.74)
[2019-10-31] MEDS: Normal Saline 1,000 ML 1000 ML IV (11:55)
[2019-10-31 11:56] LABS: Bilirubin Negative (Negative); Blood Trace-intact (Negative); Clarity Clear (Clear); Glucose Negative (Negative); Ketones Negative (Negative); Leukocyte Esterase Negative (Negative); Nitrite Negative (Negative); Urobilinogen 0.2 EU/dL (Up TO 0.2); pH 8.5 (5-8)
[2019-10-31 12:09] LABS: D-Dimer 1547 ng/mlFEU (<500)
[2019-10-31 12:15] LABS: Bacteria Few HPF (Negative); C & S Indicated? No; Casts Negative LPF (Negative); Crystals Moderate Amorphous HPF (Negative); Epithelial Cells Rare HPF (Negative); Mucus Moderate (Negative); Other Cells Negative (Negative); WBC 0-2 HPF (0-5)
[2019-10-31] MEDS: Omnipaque 350 MG/ML 100 ML BTL IJ (13:24)
[2019-10-31] MEDS: Normal Saline - Diluent 50 ML VIAL IV (13:25)
--- NOTE | 2019-10-31 13:30 | DI.CT_ITS ---
EXAM: CT CHEST PE CTA CLINICAL HISTORY: SOB TECHNIQUE: Post IV contrast according to the pulmonary embolism protocol. Axial CT angiography was performed with multi-slice acquisition and multi-planar and/or 3D reconstructions. COMPARISON: CT CHEST/ABD/PEL W from 09/07/2019 CT CHEST PE CTA from 10/31/2019 FINDINGS: There is no evidence of pulmonary emboli or aortic dissection. The lungs show respiratory motion. N o pleural or pericardial effusions are seen. There is stable mild bilateral lower lobe atelectasis. IMPRESSION: No acute abnormality.
[2019-10-31 15:28] LABS: Troponin I < 0.05 ng/Ml (<0.06)
== END 2019-10-31 16:05 | disposition home or self-care (01) ==
PROVIDERS: Emergency Provider Student in an Organized Health Care Education/Training Program; PCP Family Medicine
DX: R41.0 Disorientation, unspecified (principal); R79.1 Abnormal coagulation profile; F03.90 Unspecified dementia, unspecified severity, without behavioral disturbance, psychotic disturbance, mood disturbance, and anxiety; R06.02 Shortness of breath; J44.9 Chronic obstructive pulmonary disease, unspecified; Z87.891 Personal history of nicotine dependence; I10 Essential (primary) hypertension
CPT/HCPCS: 36415; 36416; 71275; 80053; 82962; 87449; 93005; 96360; 96361; 99285; 70450; 71045; 81003; 81015; 83735; 83880; 84443; 84484; 85025; 85379; 93010; J3490

== ENCOUNTER 2019-11-27 11:15 | Inpatient (IN) | payer OTHER, SELFPAY ==
[2019-11-27] MEDS: QUEtiapine 25 MG TAB PO (14:23)
--- NOTE | 2019-11-27 14:38 | W.PM.HP.N ---
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 No further cancer treatments available for him. Has mets to LN. Weak overall. (2) Hospice care patient: Status: Chronic Assessment and plan: Admitted to hospice care in October. Here for symptom management now. Will transition to respite care once he is stable. Looking for placement at the end of this stay. (3) Restlessness and agitation: Status: Acute Assessment and plan: Did not respond well to either lorazepam or haldol at home. Both appeared to cause increased agitation, per his family. Will try quetiapine for now, at 25 mg tid. May try zyprexa if this is ineffective. Will need sitter, or family member with him. Advised to go home and get some rest. (4) Frequent falls: Status: Chronic Assessment and plan: not safe to ambulate without assistance uses a walker at home when he is not confused (5) Delirium: Status: Acute Assessment and plan: Multi-factorial. Some in response to medications, most in response to his metabolic processes from his terminal illness. Monitor. (6) Seizures, post-traumatic: Status: Chronic Assessment and plan: continue his home meds for seizure control (7) History of subarachnoid hemorrhage: Status: Chronic Assessment and plan: had been on anti-coagulation previously recently taken off due to his risk of bleeds from frequent falls has had 2 episodes of intracranial bleeds on coumadin, and on apixaban (8) Oxygen dependent: Status: Chronic Assessment and plan: continue oxyen while here as long as it does not agitate him History of Present Illness History of Present Illness Chief Complaint: agitation, falls, end-stage rectal ca, hospice patient Narrative: Anisha has been confused, agitated, falling, refusing food and drink at home. His cannot manage him in his current condition. His three daughters were present at bedside on admission, along with his . Daughter Bernie is an RN and helps guide medical decisions. Daughters Sandrita, Bernie and Vanessa have been trying to help their mother keep their dad at home, but they all work. He has fallen several times in the last week, requiring a lift assist from the fire department. He is hallucinating regularly. He doesn't have any obvious signs of pain, no furrowed brow or moaning. He does have a fentanyl patch in place. He received some [place] morphine when he first arrived that may have contributed to his delirium. Hard to tell. He has a tremor, Parkinsonism, stiffness. Overall, he is failing rapidly over the last week. He is being admitted for SYMPTOM MANAGEMENT. Review of Systems Constitutional Constitutional: Reports daytime sleepiness, Reports fatigue, Reports frequent falls, Reports poor appetite, Reports stops breathing during sleep, Reports weakness and Reports weight loss Eyes Eyes: Reports dry eyes and Reports requires corrective lenses ENT Ears, Nose, Mouth, and Throat: Reports abnormal hearing, Reports vertigo, Reports dizziness, Reports dry mouth, Reports hearing loss and Reports disequilibrium Cardiovascular Cardiovascular: Reports rapid heart rate, Reports irregular heart rhythm, Reports leg edema, Reports lightheadedness, Reports palpitations, Reports dyspnea and Reports dyspnea on exertion Respiratory Respiratory: Reports cough (worse at night), Reports dyspnea and Reports dyspnea on exertion Gastrointestinal Gastrointestinal: Reports bloating, Reports constipation, Reports early satiety, Reports fecal incontinence and Reports diarrhea Genitourinary Genitourinary: Reports difficulty urinating and Reports urinary incontinence Musculoskeletal Musculoskeletal: Reports abnormal gait, Reports atrophy, Reports arthralgias, Reports muscle weakness and Reports stiffness Integumentary/Breasts Skin/Breast: Reports dry skin Neurologic Neurologic: Reports abnormal hearing, Reports abnormal movements, Reports abnormal speech, Reports abnormal gait, Reports behavioral changes, Reports confusion, Reports vertigo, Reports dizziness, Reports frequent falls, Reports memory loss, Reports disequilibrium and Reports weakness Psychiatric Psychiatric: Reports abnormal sleep pattern, Reports behavioral changes, Reports change in appetite, Reports confusion, Reports difficulty concentrating, Reports memory loss and Reports visual hallucinations Endocrine Endocrine: Reports fatigue and Reports palpitations Hematologic/Lymphatic Hematologic/Lymphatic: Reports easy bruising [facility] Medical History (Updated 11/27/19 @ 15:10 by Sandrine Clark MD) BPH (benign prostatic hyperplasia) COPD (chronic obstructive pulmonary disease) Delirium (Acute) Frequent falls (Chronic) GERD (gastroesophageal reflux disease) History of colon cancer Hospice care patient (Chronic) Intention tremor Oxygen dependent (Chronic) Paroxysmal atrial fibrillation PE (pulmonary thromboembolism) Restlessness and agitation (Acute) Seizures, post-traumatic (Chronic) Surgical History Colonoscopy - MAC (11/07/16) Colonoscopy - MAC (11/27/17) EGD - MAC (11/07/16) Fracture, Closed Treatment Hemicolectomy 12/17/16-RIGHT Kidney Stone Extraction Transurethral prostatectomy Family History (Updated 11/27/19 @ 14:47 by Sandrine Clark MD) Mother Personal history of malignant neoplasm Father Personal history of malignant neoplasm Heart disease Son Murder Daughter No problems noted. Daughter No problems noted. Daughter No problems noted. Social History (Updated 11/27/19 @ 14:50 by Sandrine Clark MD) Smoking/Tobacco Use Status: Former Tobacco Use Second Hand Exposure: No Alcohol Intake: former Drug use: Never Substance use type: does not use Caregiver/Support person: Yes Household members: spouse Housing: house Number of Children: 3 Communication Needs: Hard of Hearing and Corrective Lenses Education Level: high school Do you need help understanding health information?: Always current occupation: retired Pets and animals: Yes What is your relationship status?: How often do you talk on the phone with friends or family?: never How often do you get together with friends or relatives?: three or more times per week Panel score (0-1 are the most socially isolated patients): 2 What type of physical activity do you participate in: none Seatbelt use: always Do you feel safe at home: Yes Do you feel safe in your relationship?: Yes Additional Social history: Lives with in [facility]. 3 daughters involved and visit regularly. Very unsteady on his feet. Falling frequently. Has Parkinsonism, though not diagnosed with disease. On hospice for recurrent colon cancer, metastatic to several sites. unable to care for him at home. Will need placement after this admission for symptom management. Will likely use 5 night respite benefit at end of symptom stay. Meds Home Medications and Allergies Home Medications Medication Instructions Recorded Confirmed Type acetaminophen 500 mg PO BID tab-cap 02/09/18 11/27/19 History multivit,Ca,min-iron 8 mg-folic 1 tab PO DAILY tab 10/12/18 11/27/19 History acid 200 mcg-lycopene 600 mcg tablet meclizine 25 mg tablet 25 mg PO DAILY PRN 01/10/19 11/27/19 History sertraline 50 mg tablet 50 mg PO DAILY #90 tab-cap 02/09/19 11/27/19 Rx divalproex 500 mg tablet,delayed 500 mg PO BID #180 tab 05/05/19 11/27/19 Rx release enoxaparin [Lovenox] 40 mg SUBCUT Q24H 06/23/19 11/27/19 History benzonatate 100 mg capsule 100 mg PO HS PRN #30 cap 08/10/19 11/27/19 Rx donepezil 10 mg tablet 10 mg PO DAILY #90 tab 08/10/19 11/27/19 Rx famotidine 20 mg tablet 20 mg PO BID #180 tab 08/10/19 11/27/19 Rx lorazepam [Ativan] 1 mg PO DAILY PRN 10/31/19 11/27/19 History Allergies Allergy/AdvReac Type Severity Reaction Status Date / Time pantoprazole sodium Allergy Severe THROAT Verified 10/31/19 10:59 [From Protonix] SWELLING/CHILLS lorazepam AdvReac Intermediate Agitation Verified 11/27/19 14:33 haloperidol [From Haldol] AdvReac Mild Verified 11/27/19 14:34 Exam Const General: no acute distress, well developed, frail appearing and ill appearing Nutritional Appearance: obese Orientation: awake and oriented to person Limitations: altered mental status [facility] Head: normocephalic and atraumatic Ears: external ears normal General nose exam: external nose normal Face and sinus: normal facial exam, face symmetric and other (masked facies c/w Parkinsonism) Mouth: oral mucosae normal Eyes Conjunctivae: conjunctivae normal Sclera: sclerae normal Pupils: PERRL Neck Neck: no lymphadenopathy and no JVD Chest Chest: normal inspection of the chest Resp Effort & Inspection: normal respiratory effort Auscultation: clear to auscultation bilaterally and diminished lung sounds Cardio Jugular venous pressure: no JVD Rate: regular rate Rhythm: regular rhythm Heart Sounds: S1 normal and S2 normal GI Inspection: obesity and scar Palpation: soft Auscultation: normal bowel sounds Skin General skin exam: pallor and scars (abdomen, from his original colon cancer surgery) Lesions: lesion noted (seborrheic keratosis on his abdomen) Rashes: no rashes Wounds: no wounds Hair: general thinning and male pattern alopecia Neuro General: awake, moves all extremities, confused and unable to assess gait Cognition: abnormal cognition Speech: abnormal speech (doesn't say much, hallucinating, ) Gait: other (bedbound, 1-2 person assist to pivot to commode) Motor: muscle tone abnormal (having episodes of myoclonus) and strength abnormal Sensory Exam: no sensory deficits noted Extrem General: muscle atrophy and pedal edema Psych Appearance: grossly normal Speech and Movement: agitated, delayed speech and restless Mood: anxious mood Affect: labile affect Attitude: avoids eye contact Thought Process: illogical, impoverished and loose association Thought Content: hallucinations (seeing people) visual Insight: poor Judgment: poor
[2019-11-28] MEDS: QUEtiapine 25 MG TAB PO (07:46)
[2019-11-28] MEDS: Famotidine 20 MG TAB PO (07:46)
[2019-11-28] MEDS: Divalproex 500 MG TABEC PO (07:47)
[2019-11-28] MEDS: Sertraline 50 MG TAB PO (07:47)
[2019-11-28] MEDS: Acetaminophen 500 MG TAB PO (07:48)
[2019-11-28] MEDS: HYDROmorphone 2 MG/ML VIAL SC ×2 (11:03→13:07)
[2019-11-28] MEDS: Albuterol 2.5 MG/3 ML INH SOLN VIAL UPD (12:32)
[2019-11-28 12:38] VITALS: O2SAT 94
[2019-11-28 12:42] VITALS: PULSE 85; RESP 10; RESP 8; O2SAT 96
--- NOTE | 2019-11-28 14:00 | CHAPLAIN ---
I met Mr. Brown's and three daughters outside of his room while nurses were freshening him up. Mrs. Brown said his health has not been good for a few years now but there has been a marked difference since yesterday. She is not sure he recognizes her and he didn't recognize a home photo of their son who was murdered. She said she got some good sleep last night, while Mr. Brown was here, as he wasn't waking her up with demands. Mrs. Brown was Jewish but has been and is not connected to a scientologist now. (Mr. Brown is her second and the daughters' stepfather, but helped raised them). Mrs. Brown prays and told me that she prays that the end of her 's life is comfortable and not dragged out. I assured her that as a hospice patient, pain relief and keeping him comfortable are the priorities. Mrs. Brown went home for a while today and two of the daughters stayed here. I will continue to visit.
--- NOTE | 2019-11-28 14:05 | W.NUTCONSULT ---
Date of service: 11/28/19 Time of Service: 14:06 Nutritional Consult ASSESSMENT: 79 year old male admitted from home hospice for symptom management. Hx of colon cancer with mets at multiple sites. Family reports has not been eating at home. BMI wnl for age. Nursing reports not eating since admission. Receiving IV fluids. Diet ordered at soft bite size with mild thick liquids. At high nutritional risk in view of poor po intake, end stage cancer however, does not want aggressive nutrition therapy while on hospice care. Dietary to provide Ensure prn. will be availabe as needed INTERVENTION: ensure prn MONITORING AND EVALUATION: po intake, weight, acceptance of supplements, comfort Time Spent in Nutritional Counseling and Treatment: 0 time spent face to face
--- NOTE | 2019-11-28 15:12 | PHARADMIT ---
Admission Pharmacy Clinical Review falling, colon cancer, hospice pt Code Status DNR/DNI Current Weight 100.5 kg Renally Cleared and Narrow Therapeutic Index Meds Crcl ~71 mL/min using adjusted body weight current meds okay QTc Value / Action Taken QTc 438 from 10/31/2019 BP Control, Fever n/a Electrolytes reviewed no labs DVT Prophylaxis none Opiate Usage / Scheduled Bowel Regimen Ordered aleksandra and prn for both Plt/SCr for Heparin / Enoxaparin no labs INR for Warfarin n/a H/H stable, WBC/Bands no labs Antibiotic appropriateness none Cultures and Sensitivities none Surgical ABX d/c within 24 hr n/a DM control / Insulin Dosing n/a Heart Failure (Check EF%) (DANK's, B-Block, Diuretics) none IV to PO Switch n/a Home Meds Reviewed -sertraline may enhance the antiplatelet effects of enoxaparin -divalproex may increase the serum concentration of lorazepam; reduce dose/monitor for increased effects Home Meds Not Ordered donepezil, enoxaparin (taken off due to risk of bleeds due to frequent falls), lorazepam (did not respond well to this at home per H&P), meclizine, multivitamin Comments symptom management, will transition to respite once stable per H&P looking for placement following this stay
--- NOTE | 2019-11-28 15:45 | INITIAL_ITS ---
- If Service Date Differs Date of service: 11/28/19 Time of Service: 15:45 Care Management Initial Assess REASON FOR HOSPITALIZATION:: Hospice Symptom Management, Colon Cancer PAST MEDICAL HISTORY/PAST SURGICAL HISTORY:: Medical History (Updated 11/27/19 @ 15:10 by Sandrine Clark MD). BPH (benign prostatic hyperplasia). COPD (chronic obstructive pulmonary disease). Delirium (Acute). Frequent falls (Chronic). GERD (gastroesophageal reflux disease). History of colon cancer. Hospice care patient (Chronic). Intention tremor. Oxygen dependent (Chronic). Paroxysmal atrial fibrillation. PE (pulmonary thromboembolism). Restlessness and agitation (Acute). Seizures, post-traumatic (Chronic). Surgical History . Colonoscopy - MAC (11/07/16). Colonoscopy - MAC (11/27/17). EGD - MAC (11/07/16). Fracture, Closed Treatment. Hemicolectomy. 12/17/16-RIGHT. Kidney Stone Extraction. Transurethral prostatectomy PREVIOUS FUNCTIONAL STATUS/SOCIAL/FAMILY SUPPORTS:: Bryan is a Hospice patient with colon carcinoma metastatic to multiple sites. He lives with his , Joe in [facility]. They have three adult daughters who live locally and are identified as supports. Bryan and his retired in [place] to be closer to their daughters. He now receives support from family and Hospice for ADL's. CURRENT FUNCTIONAL STATUS:: Bryan was lying in bed when CM met with him. He had family by his side who reported that he was having respiratory distress, but was given medication by nursing recently. Per report, Joe is no longer able to care for him at home and is seeking placement. CM will alert [employer] with [facility] to support goal of placement post discharge from [facility]. CM will continue to follow. ADVANCE DIRECTIVES:: On File, Bernie is his agent. Has patient been provided with information about the portal?: No Did the patient sign up for the portal?: Yes (previously signed up) CODE STATUS:: DNR/DNI INSURANCE COVERAGE / FINANCIAL ISSUES:: MCR/ AARP/ CH (Hospice) CURRENT HOME/COMMUNITY SERVICES/EQUIPMENT:: Bryan currently has support from Hospice, who handles all equipment needs as well as additional support in the home. PRIMARY CARE PHYSICIAN:: Timothy Rodriguez POTENTIAL DISCHARGE NEEDS:: Resume Hospice support at home vs SNF placement with Hospice support PATIENT/FAMILY EDUCATION NEEDS:: Support patient and family, goals of care expectations (Hospice) ANTICIPATED BARRIERS TO DISCHARGE:: None identified at this time. TRANSPORTATION:: TBD by placement vs home. PLAN:: Bryan is at [facility] for Hospice symptom management. Anticipate he will return home once symptoms are managed with a resumption of Hospice support vs SN F placement. Transportation TBD by disposition. CM will continue to follow and support discharge planning considerations.
--- NOTE | 2019-11-28 18:23 | W.PM.PROGNOT ---
Date of Service Date of service: 11/28/19 Time of Service: 18:23 Assessment and Plan Assessment and plan (1) Restlessness and agitation: Status: Acute (2) Seizures, post-traumatic: Status: Chronic (3) Colorectal cancer, stage III: Status: Acute (4) Chronic obstructive pulmonary disease: Status: Acute (5) Hospice care patient: Status: Chronic Assessment and plan: Bryan has 2 daughters keeping buitrago at his bedside. He appears to be struggling to breath. I tried to reposition him and change his head position without relief of his stridor vs wheezing. He also has jerky lower body motions. The daughters do not feel he is comfortable and are concerned his pain and dyspnea need to be more aggressively treated. To help Bryan'c comfort I will start him on a dilaudid drip. He cannot tolerate lorazepam. There are some people who become agitated with lorazepam but its cousin diazepam works well for comfort. I will not order the diazepam yet, but would rather see how the dilaudid gtt worksfirst. He is having intermittent hiccups. I rx thorazine to be given now and repeated q 3 hours if necessary If there are concerns overnight, please contact me at [phone] Clark will be taking over his care Thursday . I did discuss Adama's care with Dr. Chiang on 11/29/2019 This document was created by [employer] recognition and may contain grammatical and translation errors. Subjective Subjective Interval history since last seen: Adama is an 79-year-old male on hospice for colon cancer. He was admitted to hospice in September. Due to agitation he came to [facility] for symptom management. Dr. Chiang, director of physiotherapy services admitted him. I am seeing Ana during her day off. I was contacted midday about Adama is wheezing. Staff was concerned that he was experiencing more wheezing and needed additional medication. At that time I ordered nebulizer. I met with Ana cantrell. His daughters were in the room. I also met with nursing, and I and a, who states that he was having some wheezing or stridor, frequent hiccups, and some mild agitation. Daughters were concerned because some of his jerking movements had become more pronounced in the last 24 hours. Additionally his breathing seems to be very labored and they were hoping that more comfort could be given to him. Exam Narrative Exam Narrative: I stood by the bedside for about 15 minutes. He had stridorous breathing. I tried positioning him differently in the bed and with his pillows. It did not make any difference. Deedee, nursing, had done a great job in positioning him prior to me coming in. Unfortunately his breathing was very very labored. I also saw him with hiccups. And body movements in his lower extremity, jerking type movements. His heart was regular. Respiratory no rales but definite respiratory breathing that was labored Objective Objective Clinical Data: Vital Signs Pulse 85 11/28/19 12:42 Pulse Rhythm Irregular 11/27/19 13:21 Respiratory Rate 10 L 11/28/19 12:42 Respiratory Effort 11/28/19 16:23 Respiratory Depth Normal 11/28/19 16:23 Respiratory Pattern Normal 11/28/19 16:23 Pulse Oximetry 96 11/28/19 12:42 Oxygen Delivery Method Nasal Cannula 11/28/19 12:38 Oxygen Flow Rate 3 11/28/19 12:38 Pain Level 0 11/27/19 13:21 Comment 11/27/19 13:45 Intake & Output 11/27/19 11/28/19 11/28/19 23:59 11:59 23:59 Weight 221 lb 9.033 oz Other: Urine Color Yellow Urine Appearance Clear Comment incontinent x 1. Small incontinent void in brief. Stool Size Smear Stool Characteristics Soft Brown Voiding Methods Incontinent Incontinent Diaper Incontinent
[2019-11-28] MEDS: chlorproMAZINE 25 MG/ML AMP IM (20:17)
--- NOTE | 2019-11-28 22:42 | NUR.NOTE ---
Nursing Note: Pt received non verbal , responded to physical stimuli by opening both eyes, Seen by palliative MD, ordered Thorazine given IM at right deltoid. and Hydromorphone 2 mg/ml IV drip infusing, Family member left. At 2200 hrs. Pt has episodes of apneic for 3 sec., repeated 5 x in 5 minutes and more jerky movements noted. Both eyes will dilates in few seconds.Pads placed in bedrails. change booth attendant notified family and stated that they will be here in 30 to 45 minutes. Comfort care rendered.
--- NOTE | 2019-11-29 13:33 | PGE_ITS ---
Date of Service Date of service: 11/29/19 Time of Service: 13:03 Assessment and Plan Assessment and plan (1) Dying care: Status: Acute Assessment and plan: minimally responsive does not open his eyes during my visit does have rhonchorous breathing, upper airway sounds, no increased work of breathing, prolonged episodes of apnea no mottling, feet and hands still warm discussed with family that he may not in their presence, as he was always the caregiver, didn't want to upset family will add glycopyrrolate to his medications today to treat his secretions not responding to atropine drops unsafe to have hyocyamine under his tongue, per nursing (2) Delirium: Status: Acute Assessment and plan: not agitated today could be hypoactive delirium, but no obvious signs (3) Hospice care patient: Status: Chronic Assessment and plan: continuing on symptom management (4) 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 He is having apnea and stridorous breathing. He looks comfortable, but his family is worried about his symptoms. I explained that this is normal part of dying. Will add glycopyrolate to his medications. They are questioning whether he is drowning with his audible secretions. Explained he is not. He is having apneic spells lasting up to 30-45 seconds. He has no furrowed brow, no grimace, no moan. Dr Swann, who took care of him yesterday, started him on a dilaudid pump at 1 mg/hr. This seems sufficient still today. Exam Const General: no acute distress, well developed and ill appearing Nutritional Appearance: obese Limitations: altered mental status [facility] Head: normocephalic and atraumatic Ears: external ears normal General nose exam: external nose normal Face and sinus: normal facial exam and face symmetric Mouth: oral mucosae normal Eyes Conjunctivae: conjunctivae normal Sclera: sclerae normal Neck Neck: no lymphadenopathy and no JVD Chest Chest: normal inspection of the chest Resp Auscultation: clear to auscultation bilaterally and diminished lung sounds Cardio Jugular venous pressure: no JVD Rate: regular rate Rhythm: regular rhythm Heart Sounds: S1 normal and S2 normal GI Inspection: obesity and scar Palpation: soft Auscultation: normal bowel sounds Skin General skin exam: pallor and scars (abdomen, from his original colon cancer surgery) Lesions: lesion noted (seborrheic keratosis on his abdomen) Rashes: no rashes Wounds: no wounds Hair: general thinning and male pattern alopecia Neuro General: unable to assess gait Cognition: abnormal cognition Motor: muscle tone abnormal (having episodes of myoclonus) and strength abnormal Sensory Exam: no sensory deficits noted Extrem General: muscle atrophy and pedal edema Psych Appearance: grossly normal Insight: poor Judgment: poor Objective Objective Clinical Data: Vital Signs Pulse 85 11/28/19 12:42 Pulse Rhythm Irregular 11/27/19 13:21 Respiratory Rate 10 L 11/28/19 12:42 Respiratory Effort 11/29/19 10:30 Respiratory Depth Deep 11/29/19 10:30 Respiratory Pattern Apnea 11/29/19 10:30 Pulse Oximetry 96 11/28/19 12:42 Oxygen Delivery Method Nasal Cannula 11/29/19 04:20 Oxygen Flow Rate 2 11/29/19 04:20 Pain Level 0 11/27/19 13:21 Comment 11/27/19 13:45 Intake & Output 11/28/19 11/29/19 11/29/19 23:59 11:59 23:59 Intake Total 0 / 0 Balance 0 / 0 Intake: Oral 0 / 0 Other: Urine Color Yellow Urine Appearance Clear Urine Odor None Comment pt had seizure everytime he was turned INCONTINENT OF URINE. CLEANSED AND DIAPER APPLIED. Voiding Methods Incontinent Diaper
[2019-11-29] MEDS: fentaNYL 50 MCG PATCH TD (14:38)
--- NOTE | 2019-11-29 15:21 | W.PM.DS.N ---
Date of service: 11/29/19 DS: Diagnosis Discharge Diagnosis (1) Dying care: Status: Acute Asessment and Plan: peacefully at 14:45. All 3 daughters and present. Peaceful . Pronounced at 14:47. Cause of : metastatic colon cancer, recurrent. 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 Had been falling, restless, agitated, hallucinating about people who had , requesting to go home showing many signs of impending . Admitted on Thursday; started on low dose hydromorpone drip on Thursday; on Thursday. Family all present, 3 daughters and . Did not struggle. Did not need a lot of medications. Very peaceful . 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 Autofilled. DS: Summary Status at Discharge Functional status at discharge: bed bound Overall status at discharge: other () Mental Status: other () Speech and Movement: other () Mood: other () Affect: other () Time Spent with Patient Specific discharge activities: [facility] home will be handling cremation for HS. Exam Narrative Exam Narrative: Examined pt at 14:50. No spontaneous breathing; no respirations. . No heart beat. Clearly had . Psych Mental Status: other () Speech and Movement: other () Mood: other () Affect: other () DS: Data Vitals/I&O Vitals and I&O: Vital Signs Pulse 85 11/28/19 12:42 Pulse Rhythm Irregular 11/27/19 13:21 Respiratory Rate 10 L 11/28/19 12:42 Respiratory Effort 11/29/19 10:30 Respiratory Depth Deep 11/29/19 10:30 Respiratory Pattern Apnea 11/29/19 10:30 Pulse Oximetry 96 11/28/19 12:42 Oxygen Delivery Method Nasal Cannula 11/29/19 04:20 Oxygen Flow Rate 2 11/29/19 04:20 Pain Level 0 11/27/19 13:21 Comment 11/27/19 13:45 Intake & Output 11/28/19 11/29/19 11/29/19 23:59 11:59 23:59 Intake Total 0 / 0 Balance 0 / 0 Intake: Oral 0 / 0 Other: Urine Color Yellow Urine Appearance Clear Urine Odor None Comment pt had seizure everytime he was turned INCONTINENT OF URINE. CLEANSED AND DIAPER APPLIED. Voiding Methods Incontinent Diaper [facility] Medical History (Updated 11/29/19 @ 13:48 by Sandrine Clark MD) Apnea (Acute) BPH (benign prostatic hyperplasia) COPD (chronic obstructive pulmonary disease) Delirium (Acute) Dying care (Acute) Excessive oral secretions (Acute) Frequent falls (Chronic) GERD (gastroesophageal reflux disease) History of colon cancer Hospice care patient (Chronic) Intention tremor Oxygen dependent (Chronic) Paroxysmal atrial fibrillation PE (pulmonary thromboembolism) Restlessness and agitation (Acute) Seizures, post-traumatic (Chronic) Surgical History Colonoscopy - MAC (11/07/16) Colonoscopy - MAC (11/27/17) EGD - MAC (11/07/16) Fracture, Closed Treatment Hemicolectomy 12/17/16-RIGHT Kidney Stone Extraction Transurethral prostatectomy Family History (Updated 11/27/19 @ 14:47 by Sandrine Clark MD) Mother Personal history of malignant neoplasm Father Personal history of malignant neoplasm Heart disease Son Murder Daughter No problems noted. Daughter No problems noted. Daughter No problems noted. Social History (Updated 11/27/19 @ 14:50 by Sandrine Clark MD) Smoking/Tobacco Use Status: Former Tobacco Use Second Hand Exposure: No Alcohol Intake: former Drug use: Never Substance use type: does not use Caregiver/Support person: Yes Household members: spouse Housing: house Number of Children: 3 Communication Needs: Hard of Hearing and Corrective Lenses Education Level: high school Do you need help understanding health information?: Always current occupation: retired Pets and animals: Yes What is your relationship status?: How often do you talk on the phone with friends or family?: never How often do you get together with friends or relatives?: three or more times per week Panel score (0-1 are the most socially isolated patients): 2 What type of physical activity do you participate in: none Seatbelt use: always Do you feel safe at home: Yes Do you feel safe in your relationship?: Yes Additional Social history: Lives with in [facility]. 3 daughters involved and visit regularly. Very unsteady on his feet. Falling frequently. Has Parkinsonism, though not diagnosed with disease. On hospice for recurrent colon cancer, metastatic to several sites. unable to care for him at home. Will need placement after this admission for symptom management. Will likely use 5 night respite benefit at end of symptom stay.
--- NOTE | 2019-11-29 15:28 | CHAPLAIN ---
I checked in with Mrs. Brown and her three daughters early this afternoon. One daughter stated that Mr. Brown was taking his time when she referred to how he doing and the expectation that he was dying. We talked a bit about the work of dying. Some one had brought them lunch and the continue to talk with each other. Mr. Brown was not responsive, but snoring. He shortly after 2 p.m.
== END 2019-11-29 14:49 | disposition expired | DRG 375 ==
PROVIDERS: Admitting Provider Family Medicine; PCP Family Medicine; Visit Provider Family Medicine
DX: C18.9 Malignant neoplasm of colon, unspecified (principal); C79.9 Secondary malignant neoplasm of unspecified site; F05 Delirium due to known physiological condition; R44.3 Hallucinations, unspecified; Z51.5 Encounter for palliative care; R45.1 Restlessness and agitation; Z91.81 History of falling; G40.909 Epilepsy, unspecified, not intractable, without status epilepticus; Z99.81 Dependence on supplemental oxygen; J44.9 Chronic obstructive pulmonary disease, unspecified
CPT/HCPCS: 99223; 99233; 99238; NC; 94640; J1170; J3230; J7613